=== PATIENT | female | born 1950 | race Caucasian/White ===

== ENCOUNTER 2019-11-29 10:44 | Outpatient (CLI) | payer MEDICARE, SELFPAY ==
[2019-11-29 12:05] LABS: CA 125 16.6 U/mL (0-35)
== END 2019-11-29 10:45 | disposition home or self-care (01) ==
LOC: ONCMED 10:44
PROVIDERS: Internal Medicine Medical Oncology; Visit Provider Internal Medicine Hematology & Oncology
DX: C56.9 Malignant neoplasm of unspecified ovary (principal)
CPT/HCPCS: 36591; 86304

== ENCOUNTER → 2020-09-02 09:11 | Day surgery (SDC) | payer MEDICARE, SELFPAY ==
[2020-09-02 09:33] VITALS: BP 187/63; PULSE 88; RESP 16; TEMP 36.4; O2SAT 95; BMI 35.7
--- NOTE | 2020-09-02 09:54 | PC.NURSE ---
0935 Implanted port to right chest flushed per protocol. Blood return noted. Flushed with 20 mL NS without difficulty. Pt tolerated well. Appointments for September through January made with cards given.
== END ==
PROVIDERS: PCP Nurse Practitioner Family; Visit Provider Nurse Practitioner Family
DX: Z45.2 Encounter for adjustment and management of vascular access device (principal)
CPT/HCPCS: 96368; 96523

== ENCOUNTER 2020-09-26 14:57 | Outpatient (CLI) | payer MEDICARE, SELFPAY ==
--- NOTE | 2020-09-26 | XR_ITS ---
WS: [id number] SCREENING DEXA SCAN Played CLINICAL INFORMATION: POST MENAPAUSAL COMPARISON: None. FINDINGS: The L1-L4 bone mineral density measures 1.086 g/cm2. This corresponds to a T score score of -0.8 and Z score of -0.3. Left femoral neck bone mineral density measures 0.832 g/cm2. This corresponds to a T score of -1.4 an d Z score of -0.8. Right femoral neck bone mineral density measures 0.859 g/cm2. This corresponds to a T score -1.2of an d Z score of -0.6. Mean femoral neck bone mineral density measures 0.846 g/cm2. This corresponds to a T score of -1.3 an d Z score of -0.7. XR/XR DEXA axial skeleton* 45180 IMPRESSION: Osteopenia in the femoral necks. Normal bone mineralization lumbar spine. Patient's FRAX calculated 10 year probability for major osteoporotic fracture i s 15.5 % and osteoporotic hip fracture is 2.4%.
--- NOTE | 2020-09-26 15:06 | MM_ITS ---
WS: [id number] BILATERAL SCREENING DIGITAL MAMMOGRAM WITH CAD HISTORY: SCREENING COMPARISON: None available. Bilateral CC and MLO views submitted. Computer aided detection analyzed. Breast composition: The breasts are heterogeneously dense, which may obscure small masses. No suspici ous masses, microcalcifications or architectural distortion. Scattered asymmetries. No architectural distortion or suspicious mass. MM/[place] [id number] IMPRESSION: BI-RADS: 2-Benign FOLLOW UP: 1 Year Follow-up
== END 2020-09-26 14:58 | disposition home or self-care (01) ==
PROVIDERS: PCP Nurse Practitioner Family; Visit Provider Nurse Practitioner Family
DX: Z12.31 Encounter for screening mammogram for malignant neoplasm of breast (principal); Z78.0 Asymptomatic menopausal state; M85.88 Other specified disorders of bone density and structure, other site
CPT/HCPCS: 77067; 77080

== ENCOUNTER → 2020-10-02 06:00 | Day surgery (SDC) | payer MEDICARE, SELFPAY ==
[2020-10-02 11:20] VITALS: BP 190/100; PULSE 90; RESP 18; TEMP 36.3; O2SAT 97
== END ==
PROVIDERS: PCP Nurse Practitioner Family; Visit Provider Nurse Practitioner Family
DX: Z45.2 Encounter for adjustment and management of vascular access device (principal)
CPT/HCPCS: 96368; 96523

== ENCOUNTER 2020-10-02 09:23 | Outpatient (CLI) | payer MEDICARE, SELFPAY ==
--- NOTE | 2020-10-02 09:28 | CT_ITS ---
WS: [id number] CT CHEST, ABDOMEN, AND PELVIS TECHNIQUE: Contrast-enhanced CT of the chest, abdomen, and pelvis with coronal and sagittal reformatt ed images. CLINICAL INFORMATION: HX OF OVARIAN CANCER COMPARISON: None. DLP: 2386.[address] scans at [facility] use at least one of these dose optimization techniques: automat ed exposure control; mA and/or kV adjustment per patient size (includes targeted exams where dose is matched to clinical indication); or iterative reconstruction. CT CHEST: Mild chronic emphysematous changes. No acute pulmonary infiltrates. No consolidation or pleural fluid . No suspicious pulmonary parenchymal opacities. No axillary lymphadenopathy. No mediastinal or hilar lymphadenopathy. Normal caliber thoracic aorta. CT ABDOMEN AND PELVIS: Mild diffuse fatty infiltration of the liver. Prior cholecystectomy. Normal po rtal vein and splenic vein. Small esophageal hiatal hernia. Normal spleen. Normal pancreas. Adrenal g lands are normal. No hydronephrosis in either kidney. Normal renal parenchymal enhancement. Normal ca liber abdominal aorta. Mild aortic calcification. 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 No evidence of acute diverticulitis. Shallow fat-containing supraumbilical he rnia with a small amount of protruding transverse colon. No obstruction. Prior hysterectomy. No abdom inal lymphadenopathy. No pelvic or inguinal lymphadenopathy. Compression of the T11 superior endplate. No retropulsion. CT/CT chest abd pel w con* IMPRESSION: 1. No evidence of metastatic disease in the chest abdomen or pelvis. 2. No adenopathy in the chest abdomen or pelvis. 3. Prior hysterectomy. 4. No pelvic or inguinal lymphadenopathy. 5. Prior cholecystectomy. Mild diffuse fatty infiltration liver. 6. Small esophageal hiatal hernia. 7. Shallow supraumbilical hernia with a small amount of herniated transverse c olon. No obstruction. 8. Mild chronic appearing compression superior endplate T11. 9. 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
[2020-10-02] MEDS: iohexol 300 mg/mL 50 mL Btl PO (10:01)
[2020-10-02 10:34] LABS: Blood Urea Nitrogen 19 mg/dL (8-23)
[2020-10-02] MEDS: iodixanol 320 mg/mL 100mL Btl IV (11:10)
== END 2020-10-02 09:24 | disposition home or self-care (01) ==
LOC: RAD 09:26
PROVIDERS: PCP Nurse Practitioner Family; Visit Provider Nurse Practitioner Family
DX: Z85.43 Personal history of malignant neoplasm of ovary (principal); D17.9 Benign lipomatous neoplasm, unspecified; K42.9 Umbilical hernia without obstruction or gangrene; K44.9 Diaphragmatic hernia without obstruction or gangrene; Z90.49 Acquired absence of other specified parts of digestive tract; K76.0 Fatty (change of) liver, not elsewhere classified; Z90.710 Acquired absence of both cervix and uterus
CPT/HCPCS: 36415; 71260; 74177; 82565; 84520

== ENCOUNTER → 2020-12-02 09:15 | Day surgery (SDC) | payer MEDICARE, SELFPAY ==
[2020-12-02 08:57] VITALS: BMI 36.7
[2020-12-02 09:30] VITALS: BP 157/65; PULSE 89; RESP 18; TEMP 36.5; O2SAT 95
== END ==
PROVIDERS: PCP Nurse Practitioner Family; Visit Provider Nurse Practitioner Family
DX: Z95.828 Presence of other vascular implants and grafts (principal)
CPT/HCPCS: 96368; 96523

== ENCOUNTER → 2020-12-31 09:23 | Day surgery (SDC) | payer MEDICARE, SELFPAY ==
[2020-12-31 09:44] VITALS: BP 169/90; PULSE 88; RESP 18; TEMP 36.4; O2SAT 95
[2020-12-31 09:49] VITALS: BMI 36.7
--- NOTE | 2020-12-31 10:02 | SUR.OPER ---
port accessed. good blood return. flushed with 20ml of sterile saline. needle dc ed. sterile dressing applied. patient tolerated well.
== END ==
PROVIDERS: PCP Nurse Practitioner Family; Visit Provider Nurse Practitioner Family
DX: Z45.2 Encounter for adjustment and management of vascular access device (principal)
CPT/HCPCS: 96368; 96523

== ENCOUNTER 2022-04-19 14:23 | Inpatient (IN) | payer MEDICARE, SELFPAY ==
[2022-04-19 14:28] VITALS: BP 170/56; PULSE 50; RESP 18; TEMP 36.8; O2SAT 96; BMI 35.9
--- NOTE | 2022-04-19 14:37 | ECG_ITS ---
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: : 1950 Requested By: David Mandel Order Number: [id number] Reading MD: Measurements Intervals [place] Rate: 48 P: CO: QRS: -66 QRSD: 106 T: 69 QT: 485 QTc: 435 Interpretive Statements SUPRAVENTRICULAR BRADYCARDIA LEFT AXIS DEVIATION [QRS AXIS < -30] ANTEROSEPTAL MYOCARDIAL INFARCTION , OF INDETERMINATE AGE [40+ ms Q WAVE IN V1-V4] INTERPRETATION BASED ON A DEFAULT AGE OF 40 YEARS No previous ECG available for comparison [id number] f
--- NOTE | 2022-04-19 14:49 | XRR_ITS ---
PROCEDURE INFORMATION: Exam: XR Chest Exam date and time: 04/19/2022 3:25 PM Age: 72 years old Clinical indication: Shortness of breath; Additional info: SOB TECHNIQUE: Imaging protocol: Radiologic exam of the chest. Views: 1 view. COMPARISON: CT chest abd pel w con* 10/02/2020 11:22 AM FINDINGS: Lungs: Low lung volumes seen. The lungs are otherwise clear. No consolidation. Pleural spaces: Unremarkable. No pleural effusion. No pneumothorax. Heart/Mediastinum: Unremarkable. No cardiomegaly. Bones/joints: Unremarkable. New lines are a right central line is present on the right side extending to the SVC XR/XR chest 1V portable [id number] IMPRESSION: 1. Right central line extends into the SVC 2. Low lung volumes seen. 3. The lungs are otherwise clear
--- NOTE | 2022-04-19 14:50 | ECG_ITS ---
[facility] Test Date: 2022-04-19 Pat Name: Angelic Fuentes Department: Room: 263 Gender: Female Agile Qa Tester: : 1950 Requested By: David Mandel Order Number: [id number] Crystal MD: Jazmin Richey M.D. Measurements Intervals [place] Rate: 49 P: VT: QRS: -46 QRSD: 110 T: 54 QT: 449 QTc: 406 Interpretive Statements SINUS RHYTHM WITH HIGH GRADE AV BLOCK LEFT AXIS DEVIATION [QRS AXIS < -30] POSSIBLE ANTERIOR MYOCARDIAL INFARCTION , PROBABLY OLD [30 ms Q WAVE IN V3/V4, OR R < 0.2 mV IN V4] CRITICAL TEST RESULT Compared to ECG 04/19/2022 14:36:10 Junctional rhythm no longer present Myocardial infarct finding still present Electronically Signed On 04-21-2022 0:05:32 CDT by Jazmin Richey M.D. [id number]
--- NOTE | 2022-04-19 14:51 | W.ED.URI ---
HPI - URI/Sore Throat General: Chief Complaint: Upper Respiratory Infection Stated Complaint: coughing, sob, chest pains Time Seen by Provider: 04/19/22 14:38 Source: patient Mode of arrival: ambulatory Limitations: no limitations History of Present Illness: This pleasant patient comes to the emergency department because of productive cough, shortness of breath, malaise. She states the symptoms of began early last week and predominantly were all upper airway congestion some mild nonproductive cough. She had a needle guided CT biopsy on last week for follow-up on her ovarian cancer and states that since that time her symptoms have worsened to include productive cough and some shortness of breath with normal activity. She denies any known fevers. She denies any history of cardiovascular disease or cardiopulmonary disease. She does have ovarian cancer and has had previous chemotherapy and is now still in a oncology care. Denies any history of thromboembolic disease. She is uncertain if she had Pneumovax but was under the care of [facility] in the [facility] and was always up-to-date on all immunizations. She has had primary COVID series and 2 boosters. She states she has no abdominal pain as result of her biopsy. She has been having normal urinary and bowel movements although her intake of solids has not been normal in the last day or so because of no appetite she has been drinking fluids well. MD elicited complaint: cough and nasal congestion Description of mucous: green Exacerbating factors: exertion Associated symptoms: Reports nasal congestion; Deny abdominal pain, chills, chest pain, fever(s), headache(s), nausea or vomiting Review of Systems Const: Reports: body aches and change in appetite; Denies: fever(s) or chills Eyes: Denies: change in vision ENMT: Reports: nasal congestion; Denies: throat pain or odynophagia Card: Denies: chest pain, palpitations, irregular heart rhythm, edema, syncope or pre-syncope Resp: Reports: productive cough; Denies: wheezing or stridor GI: Denies: abdominal pain, nausea or vomiting : Denies: flank pain, difficulty voiding, dysuria or urinary frequency Musc: Denies: neck pain, back pain, extremity pain or extremity swelling Skin/Breast: Denies: rash Neuro: Denies: headache(s), numbness in extremities or weakness in extremities Rambo/Lymph: Denies: easy bruising or easy bleeding Physical Exam Narrative: EXAM NARRATIVE: Makes good eye contact. She is comfortable and cooperative. Const: COMMON NORMALS: no acute distress and patient oriented x3 GENERAL APPEARANCE: cooperative and comfortable NUTRITIONAL APPEARANCE: overweight HENMT: COMMON NORMALS: normocephalic, Normal nasal mucous membranes and turbinates present, moist oral mucous membranes and oropharynx normal HEAD & SCALP: normocephalic NOSE: Normal nasal mucous membranes and turbinates present Eye: COMMON NORMALS: Equal, round and reactive pupils present, EOMs intact bilaterally, conjunctivae normal and no scleral icterus CONJUNCTIVA: Yes conjunctivae normal PUPIL: Yes Equal, round and reactive pupils present Neck/C-Spine: COMMON NORMALS: full ROM, no lymphadenopathy, no JVD and No carotid bruits Chest: COMMONS NORMALS: normal inspection of the chest Resp: COMMON NORMALS: No retractions and No use of accessory muscles EFFORT & INSPECTION: Yes able to speak in complete sentences AUSCULTATION: diminished lung sounds (Bases bilaterally) Cardio: COMMON NORMALS: no JVD, regular rate, regular rhythm, No murmurs present (Cardio) and Peripheral pulses 2+ throughout RATE: regular rate RHYTHM: regular rhythm PERIPHERAL PULSES: Peripheral pulses 2+ throughout GI: COMMON NORMALS: Normal to inspection, nondistended, normoactive bowel sounds present, Soft to palpation, non-tender and no masses PALPATION: Yes Soft to palpation : COMMON NORMALS: Yes no CVA tenderness BLADDER/KIDNEY EXAM: Yes no CVA tenderness Back/Pelvis: COMMON NORMALS: no CVA tenderness, thoracic and lumbar spine normal to inspection, no thoracic nor lumbar tenderness and thoraco-lumbar ROM normal Extremity: COMMON NORMALS: normal to inspection, full ROM, capillary refill normal, no calf tenderness and no pedal edema Neuro: COMMON NORMALS: patient oriented x3, moves all extremities, no focal motor deficits and no sensory deficits noted Psych: COMMON NORMALS: mental status grossly normal Skin: COMMON NORMALS: no rashes or lesions noted, turgor normal and no jaundice GENERAL SKIN EXAM: no rashes or lesions noted and turgor normal Course Reevaluation(s): Reevaluation #1: Limited bedside ultrasound of her myocardium was performed. No evidence of pericardial effusion. Normal myocardial function grossly intact with right ventricular enlargement. Time: 15:07 Reevaluation #2: I informed patient of current findings. Will consult with hospitalist. Time: 17:26 Consultations: Consultation #1: Discussed with Dr. Fleming who agrees to place the patient in observation and initiate treatment. Time: 17:26 Vital Signs: Vital signs: Vital Signs Temperature 98.2 F 04/19/22 14:28 Pulse Rate 43 L 04/19/22 17:01 Respiratory Rate 16 04/19/22 17:01 Blood Pressure 165/62 04/19/22 17:01 Pulse Oximetry 95 04/19/22 17:01 Oxygen Delivery Me thod 04/19/22 17:01 MDM - URI/Sore Throat Medical Decision Making This lady presents to our emergency department with a history of ovarian cancer ongoing treatment. She states over the past number of days she thought she had some upper respiratory symptoms which progressed into more congestion and feeling winded much more than usual. No ongoing chest pain or fevers. No history of heart failure etc. Her work-up today did not reveal her to be hypoxic or tachycardic or hypotensive however she did have right-sided pulmonary emboli by CTA. She did have an elevation in her D-dimer, her BNP as well as her initial troponin without any acute ischemic changes on EKG. She is being started on an direct acting anticoagulants and admitted for echo and to follow her troponins to ensure that she does not decompensate. Lab Data I reviewed the patient's lab results. : 04/19/22 15:10 04/19/22 15:10 Radiology Impressions Chest X-Ray 04/19/22 14:49 IMPRESSION: 1. Right central line extends into the SVC 2. Low lung volumes seen. 3. The lungs are otherwise clear Chest CTA 04/19/22 16:02 IMPRESSION: 1. Large pulmonary embolism right lower lobe pulmonary artery . 2. Negative for right heart strain. 3. Scattered interstitial densities in both lungs as described 4. Unremarkable thoracic aorta 5. Pleural thickening posterior aspect of the bilateral lower lobes. Laboratory Results WBC 6.0 10^3/uL (4.0-10.0) 04/19/22 15:10 RBC 2.97 10^6/uL (4.1-5.3) L 04/19/22 15:10 Hgb 11.1 g/dL (11.5-15.3) L 04/19/22 15:10 Hct 32.4 % (37.0-47.0) L 04/19/22 15:10 MCV 109.1 fl (81-99) H 04/19/22 15:10 MCH 37.4 pg (28.0-34.0) H 04/19/22 15:10 MCHC 34.3 g/dL (30.0-36.0) 04/19/22 15:10 RDW 16.5 % (12.1-15.1) H 04/19/22 15:10 Plt Count 188 10^3/cmm (130-400) 04/19/22 15:10 MPV 12.8 fL (7.4-10.4) H 04/19/22 15:10 Neut % (Auto) 77.9 % 04/19/22 15:10 Lymph % (Auto) 12.9 % 04/19/22 15:10 [place] % (Auto) 6.3 % 04/19/22 15:10 Eos % (Auto) 1.7 % 04/19/22 15:10 Baso % (Auto) 0.7 % 04/19/22 15:10 Neut # (Auto) 4.67 10^3/uL (1.8-7.7) 04/19/22 15:10 Lymph # (Auto) 0.8 10^3/uL (0.8-4.8) 04/19/22 15:10 [place] # (Auto) 0.4 10^3/uL (0.2-0.9) 04/19/22 15:10 Eos # (Auto) 0.1 10^3/uL (0.0-0.8) 04/19/22 15:10 Baso # (Auto) 0.0 10^3/uL (0.0-0.1) 04/19/22 15:10 Nucleated RBC % (auto) 0.3 % 04/19/22 15:10 Nucleated RBCs # 0.0 /100WBC 04/19/22 15:10 D-Dimer 2.32 ug/mIFEU (0-0.59) H 04/19/22 15:10 Sodium 139 mmol/L (136-145) 04/19/22 15:10 Potassium 4.1 mmol/L (3.5-5.1) 04/19/22 15:10 Chloride 104 mmol/L (98-107) 04/19/22 15:10 Carbon Dioxide 21 mmol/L (22-29) L 04/19/22 15:10 Anion Gap 18.1 (5-19) 04/19/22 15:10 BUN 26 mg/dL (8-23) H 04/19/22 15:10 Creatinine 1.3 mg/dL (0.5-0.9) H 04/19/22 15:10 GFR Calculation Not Reportable 04/19/22 15:10 Glucose 152 mg/dL (65-115) H 04/19/22 15:10 Calculated Osmolality 296 mOsm/kg (285-295) H 04/19/22 15:10 Calcium 8.5 mg/dL (8.5-10.5) 04/19/22 15:10 Total Bilirubin 1.5 mg/dL (0.15-1.2) H 04/19/22 15:10 AST 15 U/L (0-32) 04/19/22 15:10 ALT 11 U/L (0-33) 04/19/22 15:10 Alkaline Phosphatase 101 U/L (35-105) 04/19/22 15:10 Troponin T Baseline 43 ng/L (0-10) H 04/19/22 15:10 NT-Pro-B Natriuret Pep 5819 pg/mL (0-125) H 04/19/22 15:10 Total Protein 6.2 g/dL (6.6-8.7) L 04/19/22 15:10 Albumin 3.6 g/dL (3.5-5.2) 04/19/22 15:10 Globulin 2.6 g/dL (1.3-4.6) 04/19/22 15:10 SARS-CoV-2 Ag (Rapid) Negative (Negative) 04/19/22 15:10 EKG Data EKG 1: I personally reviewed and interpreted this EKG as follows: Interpretation: Resting EKG reveals ventricular rate of 48 bpm. SC interval is indeterminate at this tracing. QTc QRS duration are normal. She has a leftward axis consistent with possible left anterior Heema block. She has decreased R waves noted anteriorly suggestive of possible prior anterior wall MN. Discharge Plan Discharge Patient Disposition: Placed in Observation Clinical Impression: Pulmonary embolism on right, Ovarian cancer Condition: Stable Prescriptions: No Action atorvastatin 40 mg tablet 40 mg PO DAILY lisinopril 20 mg tablet 20 mg PO DAILY amlodipine 2.5 mg tablet 2.5 mg PO DAILY bupropion HCl [Wellbutrin] 100 mg Tablet 100 mg PO DAILY letrozole 2.5 mg tablet 2.5 mg PO DAILY escitalopram oxalate 10 mg Tablet 10 mg PO DAILY alendronate 70 mg tablet 70 mg PO DIRECTED Rx Instructions: weekly on Fridays Referrals: Zahida Umanzor FNP [Primary Care Provider] - Coding Level of Care Code ED Sewer System Supervisor for Chg Fwd Exam Comprehensive
[2022-04-19 15:22] LABS: Basophils % 0.7 %; Eosinophils # 0.1 10^3/uL (0.0-0.8); Eosinophils % 1.7 %; Hematocrit 32.4 % (37.0-47.0); Hemoglobin 11.1 g/dL (11.5-15.3); Lymphocytes # 0.8 10^3/uL (0.8-4.8); Lymphocytes % 12.9 %; Mean Corpuscular HGB Conc 34.3 g/dL (30.0-36.0); Mean Corpuscular Hemoglobin 37.4 pg (28.0-34.0); Mean Corpuscular Volume 109.1 fl (81-99); Mean Platelet Volume 12.8 fL (7.4-10.4); Monocytes # 0.4 10^3/uL (0.2-0.9); Monocytes % 6.3 %; Neutrophils # 4.67 10^3/uL (1.8-7.7); Neutrophils % 77.9 %; Nucleated Red Blood Cells % 0.3 %; Platelet Count 188 10^3/cmm (130-400); Red Blood Count 2.97 10^6/uL (4.1-5.3); Red Cell Distribution Width 16.5 % (12.1-15.1)
[2022-04-19 15:40] LABS: Troponin(5th) Baseline 43 ng/L (0-10)
[2022-04-19 15:46] LABS: SARS Covid-2 Antigen Negative (Negative)
[2022-04-19 15:50] LABS: Alanine Aminotransferase 11 U/L (0-33); Albumin Level 3.6 g/dL (3.5-5.2); Alkaline Phosphatase 101 U/L (35-105); Aspartate Amino Transferase 15 U/L (0-32); Blood Urea Nitrogen 26 mg/dL (8-23); Calcium 8.5 mg/dL (8.5-10.5); Carbon Dioxide 21 mmol/L (22-29); Chloride 104 mmol/L (98-107); Globulin 2.6 g/dL (1.3-4.6); Glucose 152 mg/dL (65-115); NT Pro B Type Natriuretic Pept 5819 pg/mL (0-125); Osmolality Calculated 296 mOsm/kg (285-295); Sodium 139 mmol/L (136-145); Total Bilirubin 1.5 mg/dL (0.15-1.2); Total Protein 6.2 g/dL (6.6-8.7)
[2022-04-19 15:53] LABS: Anion Gap 18.1 (5-19); Potassium 4.1 mmol/L (3.5-5.1)
[2022-04-19 15:58] LABS: D Dimer 2.32 ug/mIFEU (0-0.59)
--- NOTE | 2022-04-19 16:02 | CTR_ITS ---
PROCEDURE INFORMATION: Exam: CTA Chest With Contrast Exam date and time: 04/19/2022 4:24 PM Age: 72 years old Clinical indication: Shortness of breath; Prior surgery; Surgery type: Port; Additional info: Elevated dimer, SOB TECHNIQUE: Imaging protocol: Computed tomographic angiography of the chest with contrast. 3D rendering (Not supervised by radiologist): MIP and/or 3D reconstructed images were created by the technologist. Radiation optimization: All CT scans at this facility use at least one of these dose optimization techniques: automated exposure control; mA and/or kV adjustment per patient size (includes targeted exams where dose is matched to clinical indication); or iterative reconstruction. Contrast material: OMNI 350; Contrast volume: 95 ml; Contrast route: INTRAVENOUS (IV); COMPARISON: CT chest abd pel w con* 10/02/2020 11:22 AM RADIATION DOSE METRICS: Total DLP (mGy-cm): 440.34 FINDINGS: Pulmonary arteries: There are several large filling defects present throughout the right lower lobe pulmonary arteries. These findings correspond to a positive diagnosis of pulmonary embolism. The pulmonary embolism involves the main right pulmonary artery and the proximal and distal segmental and subsegmental right lower lobe pulmonary arteries. There is also filling defects in the proximal aspect of the right middle lobe pulmonary artery The remainder of the pulmonary arterial system does not show focal abnormality. No additional pulmonary artery filling defects are noted.. Scattered interstitial densities are seen throughout the left lung and in the posterior aspect of the right upper lobe.These findings were not present on prior examination Aorta: Unremarkable. No aortic aneurysm. No aortic dissection. Lungs: Unremarkable. No consolidation. No masses. Pleural spaces: Pleural thickening is seen in the posterior bilateral lower lobe. No pneumothorax. No pleural effusion. Heart: Negative for right heart strain negative for coronary artery calcifications. . No cardiomegaly. No pericardial effusion. Lymph nodes: Unremarkable. No enlarged lymph nodes. Bones/joints: Unremarkable. No acute fracture. Soft tissues: Unremarkable. CT/CT angio chest PE protcl [id number] IMPRESSION: 1. Large pulmonary embolism right lower lobe pulmonary artery . 2. Negative for right heart strain. 3. Scattered interstitial densities in both lungs as described 4. Unremarkable thoracic aorta 5. Pleural thickening posterior aspect of the bilateral lower lobes.
[2022-04-19] MEDS: iohexol 350 mg/mL 100 mL Btl IV (16:36)
[2022-04-19 17:01] VITALS: BP 165/62; PULSE 43; RESP 16; O2SAT 95
[2022-04-19] MEDS: rivaroxaban 10 mg Tablet 15 MG PO (17:49)
[2022-04-19 17:50] VITALS: BP 185/74; PULSE 45; RESP 16; O2SAT 96
--- NOTE | 2022-04-19 17:56 | PC.NURSE ---
Report called to MARCOS Pittman
--- NOTE | 2022-04-19 19:30 | USR_ITS ---
PROCEDURE INFORMATION: Exam: US Duplex Lower Extremity Veins, Bilateral Exam date and time: 04/19/2022 8:50 PM Age: 72 years old Clinical indication: Condition or disease; Other: Pe RT lung; Patient HX: PT has had ovarian cancer. CT shows pe. ; Additional info: Dvt TECHNIQUE: Imaging protocol: Real-time Duplex ultrasound of the bilateral extremities with 2-D yi scale, color Doppler flow and spectral waveform analysis with image documentation. Complete exam focused on the bilateral lower extremity veins. COMPARISON: CT chest abd pel w con* 10/02/2020 11:22 AM FINDINGS: Right deep veins: The common femoral, femoral, proximal profunda femoral and popliteal veins are patent without thrombus. Normal Doppler waveforms. Normal compressibility and/or augmentation response. Right superficial veins: Occlusive thrombus seen within the small saphenous vein which extends into the peroneal trunk. Left deep veins: Unremarkable. The common femoral, femoral, proximal profunda femoral and popliteal veins are patent without thrombus. Normal Doppler waveforms. Normal compressibility and/or augmentation response. Left superficial veins: Saphenofemoral junction is patent without thrombus. Soft tissues: Unremarkable. US/[place] [id number] IMPRESSION: 1. Occlusive thrombus within the superficial right small saphenous vein which extends into the peroneal trunk within the calf. 2. No DVT in the left leg.
--- NOTE | 2022-04-19 19:30 | USCV_ITS ---
Angelic Fuentes Age: 72 Gender: F : 1950 Exam Date: 04/19/2022 21:15 Ordering Phys: Gómez Pean MD Technologist: Sonia Arciniega [place] [facility] [place] PE with swollen feet BP: 167 / 67 HR: 48 Rhythm: Sinus Technical Quality: Adequate MEASUREMENTS (Male / Female) Normal Values 2D ECHO LV Diastolic Diameter PLAX 4.5 cm 4.2 - 5.9 / 3.9 - 5.3 cm LV Systolic Diameter PLAX 3.0 cm LV Chamber Size 5.1 cm IVS Diastolic Thickness 1.2 cm 0.6 - 1.0 / 0.6 - 0.9 cm IVS Systolic Thickness 1.6 cm LVPW Diastolic Thickness 1.4 cm 0.6 - 1.0 / 0.6 - 0.9 cm LVPW Systolic Thickness 1.8 cm RV Chamber Size 3.6 cm LVOT Diameter 2.1 cm LV Ejection Fraction 2D Teich 62.0 % LV Ejection Fraction MOD 2C 81.1 % LV Ejection Fraction 2C AL 80.8 % LA Diameter 4.4 cm LA Width 3.3 cm LA Height 4.3 cm RA Width 3.7 cm RA Height 4.6 cm Aorta at Sinotubular Diameter 3.1 cm IVC Diameter 1.3 cm M-MODE Aortic Annulus Diameter 4.2 cm LA Ao Ratio MM 1.3 MV E Point Septal Separation 0.5 cm DOPPLER AV Peak Velocity 262.0 cm/s LVOT Peak Velocity 169.0 cm/s AV Area Cont Eq vti 2.5 cm squared AV Area Cont Eq pk 2.2 cm squared MV Area PHT 6.9 cm squared Mitral E to A Ratio 1.9 MV E' Velocity 120.5 cm/s Mitral E to MV E' Ratio 14.4 Mitral E to LV E' Lateral Ratio 13.4 Mitral E to LV E' Septal Ratio 15.7 TR Peak Velocity 236.8 cm/s TR Peak Gradient 22.4 mmHg TR Mean Velocity 163.7 cm/s TR Mean Gradient 12.4 mmHg TR Velocity Time Integral 62.5 cm TV Peak E Velocity 56.0 cm/s Right Atrial Pressure 3.0 mmHg Pulmonary Artery Systolic Pressu 25.4 mmHg RV Acceleration Time 0.4 s RV Ejection Time 0.2 s RV AcT/ET 2.0 FINDINGS Left Ventricle Normal left ventricular size and systolic function, EF 72 %. No regional wall motion abnormalities. Right Ventricle Normal right ventricular size and systolic function. Right Atrium Mildly increased right atrial size. Left Atrium Mildly increased left atrial size. Mitral Valve Thickened mitral valve. Mild mitral annular calcification. Aortic Valve Moderately severe aortic regurgitation Tricuspid Valve Trace tricuspid valve regurgitation. Pulmonic Valve Mild pulmonary valve regurgitation. Pericardium No pericardial effusion. Aorta Normal aortic annulus size. IVC Normal inferior vena cava. CONCLUSIONS Normal left ventricular size and systolic function, EF 72 %. No regional wall motion abnormalities. Mild biatrial enlargement Moderately severe aortic regurgitation. Thickened mitral valve. Mild mitral annular calcification. Mild pulmonary valve regurgitation. Trace tricuspid valve regurgitation. Estimated pulmonary artery peak systolic pressure was 25 mmHg. This could be an underestimation because of the poor Doppler signals There is no pericardial effusion. No similar previous studies are available for comparison Dr Jazmin Richey MD FAC (Electronically Signed) Final Date: 20 April 2022 08:38 S
--- NOTE | 2022-04-19 19:34 | P.HP_ITS ---
Providers/Chief Complaint Admitting Physician: Tha Buckley MD Primary Care Provider: CINDI Dejesus Chief Complaint: coughing, sob, chest pains History of Present Illness Angelic Fuentes is a 72 year old female with a past medical history of ovarian cancer, history of bilateral salpingo-oophorectomy and hysterectomy, status postchemotherapy, now with reoccurrence, had a biopsy of reoccurrence?, Patient is exactly unsure what was biopsied, but she is managed by oncology in [facility], currently on Lynparza, who presents [facility] due to acutely worsening shortness of breath. Patient tells me for the last few weeks, she has had expected increased shortness of breath, increase shortness of breath and progressing to exertion, no shortness of breath at rest. No fevers, no cough, no chest pain, no palpitations. In the emergency room she was found to have a large pulm embolism in the right lower lobe, negative for right heart strain, she is has been given Xarelto, not requiring any oxygen, as there was concerns for elevated BNP and troponin hospitalist team was called for admission for monitoring. Currently blood pressure 185/74, pulse 45, sinus bradycardia, respiratory 16, temperature 90.2, 96% on room air, alert oriented x3 Review of Systems Const: Denies: fever(s) Card: Denies: chest pain Resp: Reports: dyspnea GI: Denies: abdominal pain Medications/Allergies Home Medications Medication Instructions Recorded Confirmed Last Taken Type atorvastatin 40 mg tablet 40 mg PO DAILY 09/02/20 04/19/22 04/18/22 History bupropion HCl 100 mg tablet 100 mg PO DAILY 09/02/20 04/19/22 04/18/22 History escitalopram oxalate 10 mg tablet 10 mg PO DAILY 09/02/20 04/19/22 04/18/22 History alendronate 70 mg tablet 70 mg PO Q7D 12/02/20 04/19/22 12/27/20 History lorazepam 0.5 mg tablet (Ativan) 0.5 mg PO BID PRN Anxiety 04/19/22 04/19/22 Unknown History olaparib 150 mg tablet (Lynparza) 300 mg PO BID 04/19/22 04/19/22 04/18/22 History Allergies Allergy/AdvReac Type Severity Reaction Status Date / Time No Known Allergies Allergy Verified 12/02/20 08:58 PFSH Acute PFSH: Medical History (Updated 04/19/22 @ 19:38 by Gómez Pena MD) High cholesterol Hypertension Ovarian cancer Surgical History (Updated 04/19/22 @ 19:37 by Gómez Pena MD) H/O abdominal hysterectomy Hx of cholecystectomy Family History (Updated 04/19/22 @ 19:38 by Gómez Pena MD) Mother CAD (coronary artery disease) Father CAD (coronary artery disease) Social History (Updated 04/19/22 @ 19:38 by Gómez Pena MD) Smoking and tobacco status: never smoked Alcohol intake: never Substance/Drug Use: never Vitals/I&O/Wt Last Vital Signs Temp 98.2 F 04/19/22 14:28 Pulse 45 L 04/19/22 17:50 Resp 16 04/19/22 17:50 BP 185/74 04/19/22 17:50 Pulse Ox 96 04/19/22 17:50 O2 Del Method 04/19/22 18:32 Weight last 48 hrs Weight 113.398 kg Physical Exam Const: COMMON NORMALS: no acute distress and patient oriented x3 HENMT: COMMON NORMALS: normocephalic HEAD & SCALP: normocephalic Neck/C-Spine: COMMON NORMALS: no JVD Resp: COMMON NORMALS: normal respiratory effort, No retractions, No use of accessory muscles and clear to auscultation bilaterally AUSCULTATION: clear to auscultation bilaterally Cardio: COMMON NORMALS: no JVD, regular rate, regular rhythm, S1 normal heart sound present and S2 normal heart sound present RATE: regular rate RHYTHM: regular rhythm HEART SOUNDS: S1 normal heart sound present and S2 normal heart sound present GI: COMMON NORMALS: Normal to inspection, nondistended, normoactive bowel sounds present, Soft to palpation and non-tender PALPATION: Yes Soft to palpation Extremity: COMMON NORMALS: capillary refill normal, no clubbing, cyanosis or edema, no calf tenderness and no pedal edema Neuro: COMMON NORMALS: patient oriented x3, CN's II-XII intact bilaterally, moves all extremities and no focal motor deficits Psych: COMMON NORMALS: mental status grossly normal Data : 04/19/22 15:10 04/19/22 15:10 A&P Assessment and plan (1) Pulmonary embolism on right: (2) NSTEMI (non-ST elevated myocardial infarction): Plan Pulmonary embolism on the right -Continue Xarelto 15 mg twice daily -Monitor hemoglobin closely, monitor for bloody black stools -Monitor respiratory status closely -Likely discharge tomorrow -Full code -Xarelto for DVT prophylaxis NSTEMI -Likely secondary to pulm embolism -Serial EKGs troponins telemetry monitoring, cardiac echo History of recurrent ovarian cancer follows up with oncology in [facility] Medical Necessity Statement*: Patient requires hospitalization, outpatient observation, for pulmonary embolism, NSTEMI, outpatient observation Coding Level of Care Code Acute Reconciler for Zara Carbajal Diagnoses Pulmonary embolism on right I26.99 NSTEMI (non-ST elevated myocardial infarction) I21.4
[2022-04-19 20:00] VITALS: BP 167/69; PULSE 44; RESP 18; TEMP 36.8; O2SAT 95
[2022-04-19] MEDS: acetaminophen 325 mg Tablet 650 MG PO (20:13)
[2022-04-19 20:28] VITALS: O2SAT 95
[2022-04-19 20:32] LABS: Thyroid Stimulating Hormone 1.89 uIU/mL (0.27-4.20)
[2022-04-19 20:46] VITALS: BMI 35.9
[2022-04-19 22:00] VITALS: PULSE 48
--- NOTE | 2022-04-19 22:12 | PC.NURSE ---
CARDIAC RHYTHM On quality assurance monitor body pt was noted to be in ?? 3rd degree or CHB. HR 49. Asymptomatic. EKG from ER did showythm CHB. Dr Pena was notified of rhythm and EKG done. came up to look at strips & EKG and did discuss with Dr Richey. Sanaz pt transferred to CSU and orders for prn Atropine being written. Also sanaz pacer pads on pt for precaution. This was relayed to CSU nurse.
--- NOTE | 2022-04-19 22:16 | ECG_ITS ---
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 Measurements Intervals [place] Rate: 49 P: 67 IN: 134 QRS: -41 QRSD: 110 T: 54 QT: 454 QTc: 410 Interpretive Statements Sinus rhythm with third-degree AV block Possibly junctional escape rhythm LEFT AXIS DEVIATION [QRS AXIS < -30] POSSIBLE ANTERIOR MYOCARDIAL INFARCTION , PROBABLY OLD [30 ms Q WAVE IN V3/V4, OR R < 0.2 mV IN V4] Compared to ECG 04/19/2022 21:59:00 Sinus rhythm no longer present Myocardial infarct finding still present Electronically Signed On 04-21-2022 0:06:18 CDT by Jazmin Richey M.D. [email or web address] [email or web address].[email or web address]/store/[id number]
--- NOTE | 2022-04-19 22:17 | PC.NURSE ---
TRANSFER Pt transferred to room 275
[2022-04-19 23:01] LABS: Troponin(5th) Baseline 47 ng/L (0-10)
[2022-04-20] VITALS (11 sets, daily range): BP systolic 157–189; BP diastolic 49–77; PULSE 44–55; RESP 16–24; TEMP 36.5–36.8; O2SAT 92–95
--- NOTE | 2022-04-20 00:04 | ECG_ITS ---
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 Measurements Intervals [place] Rate: 47 P: [place]: QRS: -52 QRSD: 117 T: 53 QT: 499 QTc: 442 Interpretive Statements High degree AV block with a junctional escape rhythm, rate of 47 bpm LEFT AXIS DEVIATION [QRS AXIS < -30] MODERATE INTRAVENTRICULAR CONDUCTION DELAY [105+ ms QRS DURATION, 80+ ms Q/S IN V1/V2, NO Q AND 60+ ms R IN I/aVL/V5/V6] Compared to ECG 04/19/2022 22:00:15 Intraventricular conduction delay now present Sinus bradycardia no longer present Myocardial infarct finding no longer present Electronically Signed On 04-21-2022 0:19:58 CDT by Jazmin Richey M.D. [id number]
[2022-04-20 01:47] LABS: Troponin 5 2HR 51.18 ng/L (0-10)
[2022-04-20 01:58] LABS: Troponin 5 2HR Delta 4.18 ABS# (0-10)
[2022-04-20 04:27] LABS: Basophils # 0.1 10^3/uL (0.0-0.1); Basophils % 0.9 %; Eosinophils # 0.1 10^3/uL (0.0-0.8); Eosinophils % 2.4 %; Hematocrit 29.3 % (37.0-47.0); Hemoglobin 10.3 g/dL (11.5-15.3); Lymphocytes # 1.3 10^3/uL (0.8-4.8); Mean Corpuscular HGB Conc 35.2 g/dL (30.0-36.0); Mean Corpuscular Hemoglobin 37.9 pg (28.0-34.0); Mean Corpuscular Volume 107.7 fl (81-99); Mean Platelet Volume 12.8 fL (7.4-10.4); Monocytes # 0.5 10^3/uL (0.2-0.9); Monocytes % 8.6 %; Neutrophils # 3.76 10^3/uL (1.8-7.7); Neutrophils % 64.6 %; Nucleated Red Blood Cells % 0 %; Platelet Count 122 10^3/cmm (130-400); Red Blood Count 2.72 10^6/uL (4.1-5.3); Red Cell Distribution Width 16.5 % (12.1-15.1); White Blood Count 5.8 10^3/uL (4.0-10.0)
--- NOTE | 2022-04-20 04:56 | ECG_ITS ---
[facility] Test Date: 2022-04-20 Pat Name: Angelic Fuentes Department: Room: 275 Gender: Female Outpatient Surgery Rn: SANG: 1950 Requested By: Gómez Pena Order Number: [id number] Crystal MD: Jazmin Richey M.D. Measurements Intervals [place] Rate: 47 P: 55 WV: 261 QRS: -56 QRSD: 123 T: 58 QT: 557 QTc: 497 Interpretive Statements SINUS BRADYCARDIA WITH FIRST DEGREE AV BLOCK WITH OCCASIONAL VENTRICULAR PREMATURE COMPLEXES LEFT AXIS DEVIATION [QRS AXIS < -30] POSSIBLE ANTERIOR MYOCARDIAL INFARCTION , PROBABLY OLD [30 ms Q WAVE IN V3/V4, OR R < 0.2 mV IN V4] PROLONGED QT INTERVAL CRITICAL TEST RESULT Compared to ECG 04/20/2022 00:04:02 Ventricular premature complex(es) now present First degree AV block now present Myocardial infarct finding now present Prolonged QT interval now present Intraventricular conduction delay no longer present Electronically Signed On 04-21-2022 0:20:22 CDT by Jazmin Richey M.D. [email or web address].Te[employer]/store/[id number]
[2022-04-20 05:51] LABS: Anion Gap 17.5 (5-19); Blood Urea Nitrogen 27 mg/dL (8-23); Calcium 8.8 mg/dL (8.5-10.5); Carbon Dioxide 20 mmol/L (22-29); Chloride 105 mmol/L (98-107); Glucose 121 mg/dL (65-115); Magnesium 1.9 mg/dL (1.7-2.3); Osmolality Calculated 294 mOsm/kg (285-295); Potassium 3.5 mmol/L (3.5-5.1); Sodium 139 mmol/L (136-145)
[2022-04-20 05:52] LABS: Troponin 5 6HR 48.87 ng/L (0-10)
[2022-04-20 05:54] LABS: Troponin 5 6HR Delta 1.87 ng/L (0-12)
[2022-04-20] MEDS: rivaroxaban 10 mg Tablet 15 MG PO (05:56)
--- NOTE | 2022-04-20 09:06 | PM.CONSULT ---
Providers/Reason For Consult Consulting Physician/Specialty*: My name/cardiology Reason for Consult*: Patient with a high degree AV block on EKG Requesting Physician: Dr. Pena/Dr. Mann Attending Physician: Ericka Mann MD Primary Care Provider: CINDI Dejesus History of Present Illness History of Present Illness Angelic Fuentes is a 72 year old female with a history of hypertension and dyslipidemia, is admitted to the hospital through the emergency room where she presented with progressive shortness of breath. This patient apparently was diagnosed with ovarian cancer recently and is undergoing chemotherapy. 5 days ago, she started getting short of breath with activities. Even with minimal movements, she was getting extremely short of breath. She was found to have DVT in the right lower extremity. She also was found to have pulmonary embolism. On the EKG, she was found to have high degree AV block. Cardiology consult is requested for further cardiac evaluation recommendations. This patient has no previous history for any cardiac illness. No history for cardiac arrhythmia. This patient was on antihypertensive medications in the past. Lately her blood pressure was running low and for that reason, she was taken off the medication. But since she started getting short of breath, her blood pressure seems to be going high. She had some amount of shortness of breath after starting the chemotherapy. However for the last 5 days, it is acutely getting worse. She has no fever or chills. She been having some cough and runny nose for the last few days. She has no history for coronary artery disease, myocardial infarction or congestive heart failure. The telemetry shows episodes of sinus bradycardia and third-degree heart blocks/A-V dissociation. Review of Systems Narrative: CONSTITUTIONAL: No fever or chills. EYES: No blurring of vision or other visual disturbances lately. ENT: No hoarseness of voice, auditory disturbances or sore throat. CARDIOVASCULAR: As mentioned above. RESPIRATORY: As mentioned above GASTROINTESTINAL: No hematemesis or melena. GENITOURINARY recently diagnosed ovarian cancer of stage III INTEGUMENTARY: No skin rashes or history of skin cancer. NEURO: No transient ischemic attacks or amaurosis. PSYCHIATRIC: No history of psychosis or major depression. HEMATOLOGIC: No bleeding disorders or significant anemia. ENDOCRINE: No history of polyuria or polydipsia. MUSCULOSKELETAL: No recent joint pain or swelling. ALLERGY/IMMUNOLOGY: As mentioned above. Medications/Allergies Home Medications Medication Instructions Recorded Confirmed Last Taken Type atorvastatin 40 mg tablet 40 mg PO DAILY 09/02/20 04/19/22 04/18/22 History bupropion HCl 100 mg tablet 200 mg PO DAILY 09/02/20 04/19/22 04/18/22 History escitalopram oxalate 10 mg tablet 20 mg PO DAILY 09/02/20 04/19/22 04/18/22 History alendronate 70 mg tablet 70 mg PO Q7D 12/02/20 04/19/22 12/27/20 History acetaminophen 325 mg tablet 325 mg PO Q4-5H PRN Pain, Mild 04/19/22 04/19/22 Unknown History amlodipine 2.5 mg tablet 2.5 mg PO DAILY 04/19/22 04/19/22 04/18/22 History gabapentin 300 mg capsule 300 mg PO TID 04/19/22 04/19/22 04/18/22 History ibuprofen 600 mg tablet 600 mg PO Q6H PRN Pain or Fever 04/19/22 04/19/22 Unknown History lisinopril 20 mg tablet 20 mg PO DAILY 04/19/22 04/19/22 04/18/22 History loratadine 10 mg tablet (Claritin) 10 mg PO DAILY 04/19/22 04/19/22 04/18/22 History lorazepam 0.5 mg tablet (Ativan) 0.5 mg PO Q6H PRN Anxiety 04/19/22 04/19/22 Unknown History magnesium 0 tab PO DAILY 04/19/22 04/19/22 04/18/22 History olaparib 150 mg tablet (Lynparza) 300 mg PO BID 04/19/22 04/19/22 04/18/22 History ondansetron HCl 8 mg tablet 8 mg PO Q8H PRN Nausea 04/19/22 04/19/22 Unknown History scopolamine base 1 mg over 3 days 1 patch transdermal Q3D PRN Nausea 04/19/22 04/19/22 Unknown History transdermal patch vitamin E 400 unit capsule 400 unit PO DAILY 04/19/22 04/19/22 04/18/22 History Allergies Allergy/AdvReac Type Severity Reaction Status Date / Time No Known Allergies Allergy Verified 12/02/20 08:58 Current Medications Generic Name Dose Route Start Last Admin Trade Name Freq PRN Reason Stop Dose Admin Acetaminophen 650 mg 04/19/22 19:30 04/19/22 20:13 Acetaminophen 325 Mg Tablet PO 650 mg Q6H PRN Administration Mild/Mod Pain Or Temp >/= 101 Non-Formulary Medication 300 mg 04/19/22 21:00 04/19/22 20:16 Lynparza PO 300 mg BID ASHLEE Administration Rivaroxaban 15 mg 04/20/22 05:30 04/20/22 05:56 Rivaroxaban 10 Mg Tablet PO 15 mg Q12H ASHLEE Administration PFSH Acute PFSH: Medical History High cholesterol Hypertension Ovarian cancer Surgical History H/O abdominal hysterectomy Hx of cholecystectomy Family History Mother CAD (coronary artery disease) Father CAD (coronary artery disease) Social History Smoking and tobacco status: never smoked Alcohol intake: never Substance/Drug Use: never Vitals/I&O/Wt Last Vital Signs Temp 98.3 F 04/20/22 07:48 Pulse 52 L 04/20/22 07:48 Resp 20 H 04/20/22 07:48 BP 189/56 04/20/22 07:48 Pulse Ox 92 04/20/22 07:48 O2 Del Method 04/20/22 07:48 04/19/22 04/20/22 04/20/22 22:59 06:59 14:59 Intake Total 200 / 200 120 / 320 Balance 200 / 200 120 / 320 Weight last 48 hrs Weight 250 lb Weight 250 lb Physical Exam Narrative: GENERAL: The patient is alert and oriented times three. Not in any acute distress. Morbidly obese HEENT: No significant pallor, icterus or lymphadenopathy.Oral cavity: There are no mucous membrane lesions. NECK: Trachea appears to be central. No masses noted. No JVD or thyromegaly appreciated. RESPIRATORY: Chest is symmetrical. No intercostals muscle retraction or any accessory muscle activation. There is no chest wall tenderness. Breath sounds are heard bilaterally. No rales or rhonchi heard. No evidence of any consolidation. BREASTS: Deferred. HEART: The heart sounds are normal. No S3 or S4. Early diastolic murmur grade 2 or 6 in the second aortic area. No pericardial rub ABDOMEN: No vessel pulsations or distention. No tenderness. No organomegaly appreciated. Bowel sounds are normally heard. : Deferred. RECTAL: Deferred. LYMPHATIC: No lymphadenopathy noted in the neck. EXTREMITIES: No edema or cyanosis. No clubbing. MUSCULOSKELETAL: No acute joint deformities or swelling SKIN: There are no significant rashes or ecchymosis NEUROPSYCHIATRIC: The patient is alert and oriented x3. Appears to be in a good mood. No tremors or rigidity noted. Data : 04/20/22 04:21 04/20/22 05:08 Other Labs: Laboratory Last Values WBC 5.8 10^3/uL (4.0-10.0) 04/20/22 04:21 RBC 2.72 10^6/uL (4.1-5.3) L 04/20/22 04:21 Hgb 10.3 g/dL (11.5-15.3) L 04/20/22 04:21 Hct 29.3 % (37.0-47.0) L 04/20/22 04:21 MCV 107.7 fl (81-99) H 04/20/22 04:21 MCH 37.9 pg (28.0-34.0) H 04/20/22 04:21 MCHC 35.2 g/dL (30.0-36.0) 04/20/22 04:21 RDW 16.5 % (12.1-15.1) H 04/20/22 04:21 Plt Count 122 10^3/cmm (130-400) L D 04/20/22 04:21 MPV 12.8 fL (7.4-10.4) H 04/20/22 04:21 Neut % (Auto) 64.6 % 04/20/22 04:21 Lymph % (Auto) 23.0 % 04/20/22 04:21 [place] % (Auto) 8.6 % 04/20/22 04:21 Eos % (Auto) 2.4 % 04/20/22 04:21 Baso % (Auto) 0.9 % 04/20/22 04:21 Neut # (Auto) 3.76 10^3/uL (1.8-7.7) 04/20/22 04:21 Lymph # (Auto) 1.3 10^3/uL (0.8-4.8) 04/20/22 04:21 [place] # (Auto) 0.5 10^3/uL (0.2-0.9) 04/20/22 04:21 Eos # (Auto) 0.1 10^3/uL (0.0-0.8) 04/20/22 04:21 Baso # (Auto) 0.1 10^3/uL (0.0-0.1) 04/20/22 04:21 Nucleated RBC % (auto) 0 % 04/20/22 04:21 Nucleated RBCs # 0.0 /100WBC 04/20/22 04:21 D-Dimer 2.32 ug/mIFEU (0-0.59) H 04/19/22 15:10 Sodium 139 mmol/L (136-145) 04/20/22 05:08 Potassium 3.5 mmol/L (3.5-5.1) 04/20/22 05:08 Chloride 105 mmol/L (98-107) 04/20/22 05:08 Carbon Dioxide 20 mmol/L (22-29) L 04/20/22 05:08 Anion Gap 17.5 (5-19) 04/20/22 05:08 BUN 27 mg/dL (8-23) H 04/20/22 05:08 Creatinine 1.2 mg/dL (0.5-0.9) H 04/20/22 05:08 GFR Calculation Not Reportable 04/20/22 05:08 Glucose 121 mg/dL (65-115) H 04/20/22 05:08 Calculated Osmolality 294 mOsm/kg (285-295) 04/20/22 05:08 Calcium 8.8 mg/dL (8.5-10.5) 04/20/22 05:08 Magnesium 1.9 mg/dL (1.7-2.3) 04/20/22 05:08 Total Bilirubin 1.5 mg/dL (0.15-1.2) H 04/19/22 15:10 AST 15 U/L (0-32) 04/19/22 15:10 ALT 11 U/L (0-33) 04/19/22 15:10 Alkaline Phosphatase 101 U/L (35-105) 04/19/22 15:10 Troponin T Baseline 47 ng/L (0-10) H 04/19/22 22:28 Troponin T 120 Minute 51.18 ng/L (0-10) H 04/20/22 01:07 Delta Troponin T 4.18 ABS# (0-10) 04/20/22 01:07 Troponin T Hi Sens 6Hr 48.87 ng/L (0-10) H 04/20/22 05:08 Troponin T Hi Sens 6Hr Delta 1.87 ng/L (0-12) 04/20/22 05:08 NT-Pro-B Natriuret Pep 5819 pg/mL (0-125) H 04/19/22 15:10 Total Protein 6.2 g/dL (6.6-8.7) L 04/19/22 15:10 Albumin 3.6 g/dL (3.5-5.2) 04/19/22 15:10 Globulin 2.6 g/dL (1.3-4.6) 04/19/22 15:10 TSH 1.89 uIU/mL (0.27-4.20) 04/19/22 15:10 SARS-CoV-2 Ag (Rapid) Negative (Negative) 04/19/22 15:10 Echo: My impression: Normal left ventricular size and systolic function, EF 72 %. No ?regional wall motion abnormalities. ?Mild biatrial enlargement ?Moderately severe aortic regurgitation. ?Thickened mitral valve. Mild mitral annular calcification. ?Mild pulmonary valve regurgitation. ?Trace tricuspid valve regurgitation. ?Estimated pulmonary artery peak systolic pressure was 25 mmHg.? ?This could be an underestimation because of the poor Doppler ?signals ?There is no pericardial effusion. ?No similar previous studies are available for comparison EKG 1: My Interpretation: Sinus rhythm with third-degree heart block. Sinus rate of 90 bpm. Junctional escape rhythm rate of [address]-T changes. EKG computer-generated impression: Chest X-Ray 04/19/22 14:49 IMPRESSION: 1. Right central line extends into the SVC 2. Low lung volumes seen. 3. The lungs are otherwise clear Chest CTA 04/19/22 16:02 IMPRESSION: 1. Large pulmonary embolism right lower lobe pulmonary artery . 2. Negative for right heart strain. 3. Scattered interstitial densities in both lungs as described 4. Unremarkable thoracic aorta 5. Pleural thickening posterior aspect of the bilateral lower lobes. ADDENDUM: 04/19/221707 Findings were discussed with NEEMA SANDHU at 04/19/2022 5:07 PM CDT. Venous Duplex 04/19/22 19:30 IMPRESSION: 1. Occlusive thrombus within the superficial right small saphenous vein which extends into the peroneal trunk within the calf. 2. No DVT in the left leg. EKG 2: My Interpretation: Sinus bradycardia with a rate of 48 bpm. Occasional PVC. No acute ST-T changes. EKG computer-generated impression: Chest X-Ray 04/19/22 14:49 IMPRESSION: 1. Right central line extends into the SVC 2. Low lung volumes seen. 3. The lungs are otherwise clear Chest CTA 04/19/22 16:02 IMPRESSION: 1. Large pulmonary embolism right lower lobe pulmonary artery . 2. Negative for right heart strain. 3. Scattered interstitial densities in both lungs as described 4. Unremarkable thoracic aorta 5. Pleural thickening posterior aspect of the bilateral lower lobes. ADDENDUM: 04/19/221707 Findings were discussed with NEEMA SANDHU at 04/19/2022 5:07 PM CDT. Venous Duplex 04/19/22 19:30 IMPRESSION: 1. Occlusive thrombus within the superficial right small saphenous vein which extends into the peroneal trunk within the calf. 2. No DVT in the left leg. A&P Assessment and plan (1) AV heart block: For patient had intermittent high degree AV block. Because of the pulmonary embolism and the shortness of breath it is difficult to say whether that is causing the symptoms or not. She seems to be hemodynamically stable. Most likely her symptoms are related to the pulmonary embolism. (2) Elevated troponin: Possibly from the pulmonary embolism/heart block. Underlying coronary artery disease cannot be excluded. May require a Myocardial perfusion imaging sometime down the line, to better evaluate for coronary ischemia. (3) Aortic regurgitation: Patient seems to have moderately severe aortic dilatation. This may need to be further evaluated with a MONICA. (4) Ovarian cancer: Patient undergoing chemotherapy. (5) Pulmonary embolism on right: Patient is on oral anticoagulation. (6) Venous thromboembolism: Patient is on anticoagulation. Management as per the primary attending. Plan Other problems are Stage II kidney disease Mild anemia patient needs to be closely monitored on telemetry to see whether she develops any symptomatic bradycardia. Based on the clinical progress, further recommendations will be made. At this point, I may hold off for any cardiac intervention. Thank for the opportunity to eval this patient and make these recommendations Coding Level of Care Code Acute Top Inventory Control Executive for Zara Carbajal History Expanded Problem Focused Exam Expanded Problem Focused Medical Decision Making High Complexity Diagnoses AV heart block I44.30 Elevated troponin R77.8 Aortic regurgitation I35.1 Ovarian cancer C56.9 Pulmonary embolism on right I26.99 Venous thromboembolism I82.90
[2022-04-20] MEDS: FUROsemide 20 mg Tablet PO (10:06)
[2022-04-20] MEDS: pantoprazole DR 40 mg Tablet PO (10:06)
[2022-04-20] MEDS: buPROPion SR (12 HR) 100 mg Tablet 200 MG PO (10:07)
[2022-04-20] MEDS: potassium chloride ER 20 mEq Tablet PO (10:07)
[2022-04-20] MEDS: atorvastatin 40 mg Tablet PO (10:07)
[2022-04-20] MEDS: escitalopram 10 mg Tablet PO (10:08)
[2022-04-20] MEDS: amlodipine 5 mg Tablet PO (10:08)
--- NOTE | 2022-04-20 11:52 | P.PN_ITS ---
Subjective Subjective: Patient is doing well on room air We will asked nurse to put her on pulse ox Monitoring heart rate on telemetry for now Switched to Lovenox therapeutic regimen No intervention as per cardiology for now Hemoglobin 10.3 Most likely she will need Lovenox therapeutic regimen at the time of discharge Considering history of cancer No significant leakage of troponin No active chest pain Patient stating that she has been getting lightheaded and short of breath at home Her creatinine is 1.2 Vitals/I&O/Wt Last Vital Signs Temp 98.3 F 04/20/22 07:48 Pulse 52 L 04/20/22 07:48 Resp 20 H 04/20/22 07:48 BP 189/56 04/20/22 07:48 Pulse Ox 92 04/20/22 07:48 O2 Del Method 04/20/22 07:48 04/19/22 04/20/22 04/20/22 22:59 06:59 14:59 Intake Total 200 / 200 120 / 320 240 / 240 Balance 200 / 200 120 / 320 240 / 240 Weight last 48 hrs Weight 113.398 kg Weight 113.398 kg Physical Exam Narrative: Awake and alert Looks euvolemic Heart rate in 50s Sinus rhythm with first-degree AV block QTC prolonged on one of the EKGs otherwise its normal Awake and alert Nonfocal neuro exam Currently doing well on room air Very pleasant and cooperative during my evaluation Abdomen is soft no edema of legs Data : 04/20/22 04:21 04/20/22 05:08 A&P Assessment and plan (1) Venous thromboembolism: (2) Aortic regurgitation: (3) AV heart block: (4) Elevated troponin: (5) NSTEMI (non-ST elevated myocardial infarction): (6) Pulmonary embolism on right: (7) Ovarian cancer: (8) Chronic kidney disease: Plan Acute pulm embolism Like related to cancer Will use Lovenox for now No right heart strain However EKG troponin is noted We will follow-up with echo to see any wall motion abnormality Hypertensive urgency, will add low-dose Lasix along potassium supplementation Added amlodipine, holding YINKA or ARB Chronic kidney disease: Creatinine seems to be around baseline for now Third-degree AV block: Intermittent Patient is endorsing lightheadedness and shortness of breath at home Dr. Richey is monitoring for now No plan for intervention as per Dr. Liriano recommendation We will keep her n.p.o. in case she would require any pacemaker evaluation tomorrow She is not on any AV derrick blocking agent NSTEMI Type II [place]? no Active chest pain Full code Cardiac diet DVT prophylaxis sufficed with therapeutic Lovenox Her neck therapeutic Lovenox dose will be 6 PM because she received Xarelto this morning Her oncologist is in [place] who recommended PET scan, she will do it outpatient Attestations Medical Necessity Statement*: Continue hospitalization Time Spent in Patient Care: 45 Coding Level of Care Code Acute Field Support Technician for Chg Fwd Diagnoses Venous thromboembolism I82.90 Aortic regurgitation I35.1 AV heart block I44.30 Elevated troponin R77.8 NSTEMI (non-ST elevated myocardial infarction) I21.4 Pulmonary embolism on right I26.99 Ovarian cancer C56.9 Chronic kidney disease N18.9
[2022-04-20] MEDS: hyDRALAzine 10 mg Tablet PO ×2 (13:59→20:49)
[2022-04-20] MEDS: enoxaparin 120 mg/0.8 mL Syringe 110 MG SUBCUT (18:31)
[2022-04-21] VITALS (18 sets, daily range): BP systolic 153–190; BP diastolic 49–63; PULSE 44–63; RESP 16–24; TEMP 36.3–37; O2SAT 92–96
[2022-04-21] MEDS: hyDRALAzine 25 mg Tablet PO ×4 (00:27→20:39)
[2022-04-21] MEDS: ipratropium-albuterol 3 mL Neb INHALATION ×4 (01:19→20:27)
[2022-04-21] MEDS: acetaminophen 325 mg Tablet 650 MG PO ×2 (01:28→14:00)
[2022-04-21] MEDS: LORazepam 0.5 mg Tablet PO (01:28)
[2022-04-21 03:08] LABS: Basophils # 0.1 10^3/uL (0.0-0.1); Basophils % 0.7 %; Eosinophils % 0.6 %; Hematocrit 30.4 % (37.0-47.0); Hemoglobin 10.1 g/dL (11.5-15.3); Lymphocytes # 0.7 10^3/uL (0.8-4.8); Lymphocytes % 10.8 %; Mean Corpuscular HGB Conc 33.2 g/dL (30.0-36.0); Mean Corpuscular Volume 111.4 fl (81-99); Mean Platelet Volume 12.3 fL (7.4-10.4); Monocytes # 0.5 10^3/uL (0.2-0.9); Monocytes % 7.5 %; Neutrophils # 5.46 10^3/uL (1.8-7.7); Nucleated Red Blood Cells % 0 %; Platelet Count 185 10^3/cmm (130-400); Red Blood Count 2.73 10^6/uL (4.1-5.3); Red Cell Distribution Width 16.3 % (12.1-15.1); White Blood Count 6.8 10^3/uL (4.0-10.0)
[2022-04-21 03:30] LABS: Anion Gap 14.8 (5-19); Blood Urea Nitrogen 25 mg/dL (8-23); Calcium 8.2 mg/dL (8.5-10.5); Carbon Dioxide 20 mmol/L (22-29); Chloride 108 mmol/L (98-107); Glucose 166 mg/dL (65-115); Osmolality Calculated 296 mOsm/kg (285-295); Potassium 3.8 mmol/L (3.5-5.1); Sodium 139 mmol/L (136-145)
[2022-04-21] MEDS: enoxaparin 120 mg/0.8 mL Syringe 110 MG SUBCUT (05:42)
[2022-04-21] MEDS: buPROPion SR (12 HR) 100 mg Tablet 200 MG PO (08:08)
[2022-04-21] MEDS: potassium chloride ER 20 mEq Tablet PO ×2 (08:08→19:20)
[2022-04-21] MEDS: atorvastatin 40 mg Tablet PO (08:08)
[2022-04-21] MEDS: pantoprazole DR 40 mg Tablet PO (08:08)
[2022-04-21] MEDS: escitalopram 10 mg Tablet PO (08:08)
[2022-04-21] MEDS: amlodipine 10 mg Tablet PO (08:08)
[2022-04-21] MEDS: FUROsemide 20 mg Tablet PO (08:08)
--- NOTE | 2022-04-21 08:37 | ECG_ITS ---
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 Measurements Intervals [place] Rate: 52 P: MT: QRS: -35 QRSD: 107 T: 62 QT: 425 QTc: 398 Interpretive Statements SINUS BRADYCARDIA WITH 2ND DEGREE AV BLOCK, 2:1 OR MOBITZ TYPE II LEFT AXIS DEVIATION [QRS AXIS < -30] POSSIBLE ANTERIOR MYOCARDIAL INFARCTION , PROBABLY OLD [30 ms Q WAVE IN V3/V4, OR R < 0.2 mV IN V4] CRITICAL TEST RESULT Compared to ECG 04/20/2022 04:56:33 First degree AV block no longer present Prolonged QT interval no longer present Myocardial infarct finding still present Electronically Signed On 04-22-2022 6:07:15 CDT by Barbara Resendiz M.D. [email or web address]
--- NOTE | 2022-04-21 08:38 | XR_ITS ---
WS: [id number] Exam: XR chest 1V portable [id number] Date/Time of Exam: 04/21/2022 8:54 AM Reason For Exam: sob Comparison 04/19/2022. Mild cardiac enlargement with pulmonary vascular congestion suspicious for low-grade CHF. The lungs a re fully inflated. No pleural effusions are seen. A right-sided port ends at the cavoatrial junction. The mediastinum is normal in contour. XR/XR chest 1V portable [id number] IMPRESSION: 1. Mild cardiac enlargement with mild pulmonary vascular congestion which may i ndicate early CHF. 2. Pulmonary hyperinflation suggesting the possibility of obstructive lung dise ase.
--- NOTE | 2022-04-21 08:56 | P.PN_ITS ---
Subjective Subjective: She was complaining of shortness of breath started last night She is experiencing orthopnea Chest x-ray did show mild vascular congestion I gave her IV Lasix requested EKG which showed Mobitz type II block She was n.p.o. She got Lovenox [address] Richey recommended evaluation tomorrow for pacemaker as she is short of breath today we will let her eat I will give her 1 DuoNeb treatment right now with IV Lasix repeat chest x-ray Vitals/I&O/Wt Last Vital Signs Temp 98.0 F 04/21/22 07:32 Pulse 58 L 04/21/22 07:49 Resp 20 H 04/21/22 07:49 BP 176/58 04/21/22 07:32 Pulse Ox 93 04/21/22 07:49 O2 Del Method 04/21/22 07:49 O2 Flow Rate 2 04/21/22 07:49 04/20/22 04/21/22 04/21/22 22:59 06:59 14:59 Intake Total 610 / 1090 Balance 610 / 1090 Weight last 48 hrs Weight 113.398 kg Weight 113.398 kg Physical Exam Narrative: Pleasant and cooperative Currently on 1 L nasal cannula Bilateral breath sounds with mild crackles Abdomen soft No significant signs of fluid overload Abdomen soft She is awake and alert No active chest pain Data : 04/21/22 02:54 04/21/22 02:54 A&P Assessment and plan (1) Chronic kidney disease: (2) Aortic regurgitation: (3) Venous thromboembolism: (4) AV heart block: (5) Elevated troponin: (6) NSTEMI (non-ST elevated myocardial infarction): (7) Pulmonary embolism on right: (8) Ovarian cancer: Plan Acute pulmonary embolism Symptomatic PE She is getting therapeutic Lovenox She will most likely get therapeutic Lovenox at the time of discharge as well She has history of cancer No right heart strain Echo looks normal She had high BNP Hypertension Intermittent third-degree AV block today's EKG showing type II AV block 221 Mobitz type II She is short of breath secondary to fluid overload She will need pacemaker evaluation tomorrow we will keep her n.p.o. Hold her Lovenox tonight She got 1 dose 6 AM today Chronic kidney disease creatinine seems around baseline Hypertension: Discontinued lisinopril, I have increased the dose of hydralazine, increase the dose of amlodipine Diastolic congestive heart failure acute exacerbation Continue Lasix High BNP Echo shows preserved ejection fraction No regional wall motion abnormality She is full code She is on cardiac diet She will be n.p.o. after midnight Holding therapeutic Lovenox for tonight Attestations Medical Necessity Statement*: Continue medical management Time Spent in Patient Care: 40 Coding Level of Care Code Acute Delivery Manager for g Fwd Diagnoses Chronic kidney disease N18.9 Aortic regurgitation I35.1 Venous thromboembolism I82.90 AV heart block I44.30 Elevated troponin R77.8 NSTEMI (non-ST elevated myocardial infarction) I21.4 Pulmonary embolism on right I26.99 Ovarian cancer C56.9
[2022-04-21] MEDS: FUROsemide 10 mg/mL SDV 4mL 40 MG IVP ×2 (09:15→19:21)
[2022-04-21] MEDS: saline nasal spray 44mL Btl 1 SPRAY NASAL (09:15)
[2022-04-21 10:53] LABS: Add Urine Culture? Yes; Add Urine Microscopic? YES; Bacteria Urine 4+ /hpf; Bilirubin Urine Neg (Negative); Blood Urine 3+ (Negative); Glucose Urine UA Norm (Normal); Ketones Urine Negative (Negative); Leukocyte Esterase Urine 2+ (Negative); Nitrate Urine Positive (Negative); Protein Urine 1+ (Negative); RBC Urine 0-4 /hpf (0-2); Specific Gravity, Urine 1.005 (1.005-1.030); Squamous Epithelial Cell Urine 0-4 /hpf (0-5); Urine Appearance Cloudy (CLEAR); Urine Color Yellow (Yellow); Urobilinogen Urine Norm (Negative); WBC Urine TOO NUMEROUS TO CNT /hpf (0-5); pH Urine 5 (5-7)
[2022-04-21] MEDS: cefTRIAXone 1,000 MG in sodium chloride 0.9% (plus) 50 ML 100 MG IV (11:50)
[2022-04-21 12:27] LABS: Adenovirus Not Detected (NOT DETECT); Chlamydia Pneumoniae Not Detected (NOT DETECT); Coronavirus 229E,HKU1,NL63,OC4 Not Detected (NOT DETECT); Human Metapneumovirus Not Detected (NOT DETECT); Human Rhinovirus/Enterovirus Detected (NOT DETECT); Influenza A Not Detected (NOT DETECT); Influenza A H1 Not Detected (NOT DETECT); Influenza A H1-2009 Not Detected (NOT DETECT); Influenza A H3 Not Detected (NOT DETECT); Influenza B Not Detected (NOT DETECT); Mycoplasma Pneumoniae Not Detected (NOT DETECT); Parainfluenza Virus Type 1 Not Detected (NOT DETECT); Parainfluenza Virus Type 2 Not Detected (NOT DETECT); Parainfluenza Virus Type 3 Not Detected (NOT DETECT); Parainfluenza Virus Type 4 Not Detected (NOT DETECT); Respiratory Syncytial Virus A Not Detected (NOT DETECT); Respiratory Syncytial Virus B Not Detected (NOT DETECT); SARS-COV-2 Not Detected (NOT DETECT)
[2022-04-21 12:30] LABS: Human Metapneumovirus Not Detected (NOT DETECT); Human Rhinovirus/Enterovirus Detected (NOT DETECT); Results from Genmark
[2022-04-21] MEDS: morphine 4 mg/mL SDV 1 mL 2 MG IVP (16:24)
--- NOTE | 2022-04-21 18:09 | PM.PN ---
Subjective Subjective: Patient is complaining of shortness of breath and extreme fatigue/weakness. Denies any chest pain. Continues to be in high degree AV block with a heart rate in the 50s and upper 40s. Medications: Medication Review Details: Current Medications Acetaminophen (Acetaminophen 325 Mg Tablet) 650 mg PO Q6H PRN PRN Reason: Mild/Mod Pain Or Temp >/= 101 Last Admin: 04/21/22 14:00 Dose: 650 mg Albuterol/Ipratropium (Ipratropium-Albuterol 3 Ml Neb) 3 ml INHALATION Q6H PRN PRN Reason: SHORTNESS OF BREATH Last Admin: 04/21/22 01:19 Dose: 3 ml Albuterol/Ipratropium (Ipratropium-Albuterol 3 Ml Neb) 3 ml INHALATION Q6H.RESP [facility] Last Admin: 04/21/22 14:08 Dose: 3 ml Amlodipine Besylate (Amlodipine 10 Mg Tablet) 10 mg PO DAILY [facility] Last Admin: 04/21/22 08:15 Dose: Not Given Atorvastatin Calcium (Atorvastatin 40 Mg Tablet) 40 mg PO DAILY [facility] Last Admin: 04/21/22 08:08 Dose: 40 mg Atropine Sulfate (Atropine 0.1 Mg/Ml Syr 10 Ml) 0.5 mg IVP Q5MIN PRN PRN Reason: HR<60, hypotention, pt symptomatic Bupropion HCl (Bupropion Sr (12 Hr) 100 Mg Tablet) 200 mg PO DAILY [facility] Last Admin: 04/21/22 08:08 Dose: 200 mg Enoxaparin Sodium (Enoxaparin 120 Mg/0.8 Ml Syringe) 110 mg SUBCUT Q12H [facility] Last Admin: 04/21/22 05:42 Dose: 110 mg Escitalopram Oxalate (Escitalopram 10 Mg Tablet) 10 mg PO DAILY [facility] Last Admin: 04/21/22 08:08 Dose: 10 mg Furosemide (Furosemide 10 Mg/Ml Sdv 4ml) 40 mg IVP Q24H ASHLEE Furosemide (Furosemide 10 Mg/Ml Sdv 4ml) 40 mg IVP ONCE ONE Stop: 04/21/22 20:01 Hydralazine HCl (Hydralazine 25 Mg Tablet) 25 mg PO TID [facility] Last Admin: 04/21/22 15:54 Dose: 25 mg Ceftriaxone Sodium 1,000 mg/ (Sodium Chloride) 50 mls @ 100 mls/hr IV Q24H [facility]; Protocol Last Infusion: 04/21/22 14:05 Dose: Infused Lorazepam (Lorazepam 0.5 Mg Tablet) 0.5 mg PO BID PRN PRN Reason: Anxiety Last Admin: 04/21/22 01:28 Dose: 0.5 mg Non-Formulary Medication (Lynparza) 300 mg PO BID@0000,1200 [facility] Last Admin: 04/21/22 11:51 Dose: 300 mg Pantoprazole Sodium (Pantoprazole Dr 40 Mg Tablet) 40 mg PO DAILY [facility] Last Admin: 04/21/22 08:08 Dose: 40 mg Potassium Chloride (Potassium Chloride Er 20 Meq Tablet) 20 meq PO DAILY [facility] Last Admin: 04/21/22 08:08 Dose: 20 meq Rivaroxaban (Rivaroxaban 10 Mg Tablet) 15 mg PO Q12H [facility] Last Admin: 04/20/22 05:56 Dose: 15 mg Sodium Chloride (Saline Nasal Viper 44ml Btl) 1 spray NASAL PRN PRN PRN Reason: DRYNESS Last Admin: 04/21/22 09:15 Dose: 1 spray Vitals/I&O/Wt Last Vital Signs Temp 98.1 F 04/21/22 15:35 Pulse 57 L 04/21/22 15:35 Resp 20 H 04/21/22 15:35 BP 157/53 04/21/22 15:35 Pulse Ox 94 04/21/22 15:35 O2 Del Method 04/21/22 15:35 O2 Flow Rate 3 04/21/22 14:09 04/21/22 04/21/22 04/21/22 06:59 14:59 22:59 Intake Total 430 / 430 Balance 430 / 430 Weight last 48 hrs Weight 250 lb Physical Exam Narrative: GENERAL: The patient is alert and oriented times three. Not in any acute distress. Morbidly obese HEENT: No significant pallor, icterus or lymphadenopathy.Oral cavity: There are no mucous membrane lesions. NECK: Trachea appears to be central. No masses noted. No JVD or thyromegaly appreciated. RESPIRATORY: Chest is symmetrical. No intercostals muscle retraction or any accessory muscle activation. There is no chest wall tenderness. Breath sounds are heard bilaterally. No rales or rhonchi heard. No evidence of any consolidation. BREASTS: Deferred. HEART: The heart sounds are normal. No S3 or S4. Early diastolic murmur grade 2 or 6 in the second aortic area. No pericardial rub ABDOMEN: No vessel pulsations or distention. No tenderness. No organomegaly appreciated. Bowel sounds are normally heard. : Deferred. RECTAL: Deferred. LYMPHATIC: No lymphadenopathy noted in the neck. EXTREMITIES: No edema or cyanosis. No clubbing. MUSCULOSKELETAL: No acute joint deformities or swelling SKIN: There are no significant rashes or ecchymosis NEUROPSYCHIATRIC: The patient is alert and oriented x3. Appears to be in a good mood. No tremors or rigidity noted. Data : 04/21/22 02:54 04/21/22 02:54 Other Labs: Laboratory Last Values WBC 6.8 10^3/uL (4.0-10.0) 04/21/22 02:54 RBC 2.73 10^6/uL (4.1-5.3) L 04/21/22 02:54 Hgb 10.1 g/dL (11.5-15.3) L 04/21/22 02:54 Hct 30.4 % (37.0-47.0) L 04/21/22 02:54 MCV 111.4 fl (81-99) H 04/21/22 02:54 MCH 37.0 pg (28.0-34.0) H 04/21/22 02:54 MCHC 33.2 g/dL (30.0-36.0) D 04/21/22 02:54 RDW 16.3 % (12.1-15.1) H 04/21/22 02:54 Plt Count 185 10^3/cmm (130-400) D 04/21/22 02:54 MPV 12.3 fL (7.4-10.4) H 04/21/22 02:54 Neut % (Auto) 80.0 % 04/21/22 02:54 Lymph % (Auto) 10.8 % 04/21/22 02:54 Patrick % (Auto) 7.5 % 04/21/22 02:54 Eos % (Auto) 0.6 % 04/21/22 02:54 Baso % (Auto) 0.7 % 04/21/22 02:54 Neut # (Auto) 5.46 10^3/uL (1.8-7.7) 04/21/22 02:54 Lymph # (Auto) 0.7 10^3/uL (0.8-4.8) L 04/21/22 02:54 Patrick # (Auto) 0.5 10^3/uL (0.2-0.9) 04/21/22 02:54 Eos # (Auto) 0.0 10^3/uL (0.0-0.8) 04/21/22 02:54 Baso # (Auto) 0.1 10^3/uL (0.0-0.1) 04/21/22 02:54 Nucleated RBC % (auto) 0 % 04/21/22 02:54 Nucleated RBCs # 0.0 /100WBC 04/21/22 02:54 D-Dimer 2.32 ug/mIFEU (0-0.59) H 04/19/22 15:10 Sodium 139 mmol/L (136-145) 04/21/22 02:54 Potassium 3.8 mmol/L (3.5-5.1) 04/21/22 02:54 Chloride 108 mmol/L (98-107) H 04/21/22 02:54 Carbon Dioxide 20 mmol/L (22-29) L 04/21/22 02:54 Anion Gap 14.8 (5-19) 04/21/22 02:54 BUN 25 mg/dL (8-23) H 04/21/22 02:54 Creatinine 1.3 mg/dL (0.5-0.9) H 04/21/22 02:54 GFR Calculation Not Reportable 04/21/22 02:54 Glucose 166 mg/dL (65-115) H 04/21/22 02:54 Calculated Osmolality 296 mOsm/kg (285-295) H 04/21/22 02:54 Calcium 8.2 mg/dL (8.5-10.5) L 04/21/22 02:54 Magnesium 1.9 mg/dL (1.7-2.3) 04/20/22 05:08 Total Bilirubin 1.5 mg/dL (0.15-1.2) H 04/19/22 15:10 AST 15 U/L (0-32) 04/19/22 15:10 ALT 11 U/L (0-33) 04/19/22 15:10 Alkaline Phosphatase 101 U/L (35-105) 04/19/22 15:10 Troponin T Baseline 47 ng/L (0-10) H 04/19/22 22:28 Troponin T 120 Minute 51.18 ng/L (0-10) H 04/20/22 01:07 Delta Troponin T 4.18 ABS# (0-10) 04/20/22 01:07 Troponin T Hi Sens 6Hr 48.87 ng/L (0-10) H 04/20/22 05:08 Troponin T Hi Sens 6Hr Delta 1.87 ng/L (0-12) 04/20/22 05:08 NT-Pro-B Natriuret Pep 5819 pg/mL (0-125) H 04/19/22 15:10 Total Protein 6.2 g/dL (6.6-8.7) L 04/19/22 15:10 Albumin 3.6 g/dL (3.5-5.2) 04/19/22 15:10 Globulin 2.6 g/dL (1.3-4.6) 04/19/22 15:10 TSH 1.89 uIU/mL (0.27-4.20) 04/19/22 15:10 Urine Color Yellow (Yellow) 04/21/22 10:15 Urine Appearance Cloudy (CLEAR) 04/21/22 10:15 Urine pH 5 (5-7) 04/21/22 10:15 Ur Specific [place] 1.005 (1.005-1.030) 04/21/22 10:15 Urine Protein 1+ (Negative) H 04/21/22 10:15 Urine Glucose (UA) Norm (Normal) 04/21/22 10:15 Urine Ketones Negative (Negative) 04/21/22 10:15 Urine Blood 3+ (Negative) H 04/21/22 10:15 Urine Nitrate Positive (Negative) H 04/21/22 10:15 Urine Bilirubin Neg (Negative) 04/21/22 10:15 Urine Urobilinogen Norm mg/dL (Negative) 04/21/22 10:15 Ur Leukocyte Esterase 2+ (Negative) H 04/21/22 10:15 Urine RBC 0-4 /hpf (0-2) H 04/21/22 10:15 Urine WBC Too numerous to cnt /hpf (0-5) H 04/21/22 10:15 Ur Squamous Epith Cells 0-4 /hpf (0-5) H 04/21/22 10:15 Amorphous Sediment Not Reportable 04/21/22 10:15 Urine Bacteria 4+ /hpf (NONE) H 04/21/22 10:15 Coronavirus 229E (PCR) Not detected (NOT DETECT) 04/21/22 09:30 Human Metapneumovir PCR Not detected (NOT DETECT) 04/21/22 12:30 Entero/Rhino (PCR) Detected (NOT DETECT) A 04/21/22 12:30 SARS-CoV-2 (PCR) Not detected (NOT DETECT) 04/21/22 09:30 SARS-CoV-2 Ag (Rapid) Negative (Negative) 04/19/22 15:10 A&P Assessment and plan (1) AV heart block: For patient had intermittent high degree AV block. We may repeat the chest x-ray today. Also evaluate for any oxygen desaturation with activities. If she has significant desaturation, we may have to wait till that is improved before proceeding with the pacemaker. (2) Elevated troponin: Possibly from the pulmonary embolism/heart block. Underlying coronary artery disease cannot be excluded. May require a Myocardial perfusion imaging sometime down the line, to better evaluate for coronary ischemia. (3) Aortic regurgitation: Patient seems to have moderately severe aortic regurgitation. This may need to be further evaluated with a MONICA. (4) Ovarian cancer: Patient undergoing chemotherapy. (5) Pulmonary embolism on right: Patient is on oral anticoagulation. (6) Venous thromboembolism: Patient is on anticoagulation. Management as per the primary attending. (7) Acute diastolic heart failure: The diastolic heart failure also could be contributing factor for her overall symptomatology. We will try to optimize the diuretic treatment. Plan Other problems are Stage II kidney disease Mild anemia patient needs to be closely monitored on telemetry to see whether she develops any symptomatic bradycardia. Based on the clinical progress, further recommendations will be made. We will try to optimize the diuretic treatment. Attestations Medical Necessity Statement*: Patient requires continued hospital stay for close monitoring and further management Coding Level of Care Code Acute Sand Carrier for Chg Fwd History Expanded Problem Focused Exam Expanded Problem Focused Medical Decision Making Moderate Complexity Diagnoses AV heart block I44.30 Elevated troponin R77.8 Aortic regurgitation I35.1 Ovarian cancer C56.9 Pulmonary embolism on right I26.99 Venous thromboembolism I82.90 Acute diastolic heart failure I50.31
[2022-04-21] MEDS: isosorbide mononitrate ER 30 mg Tablet PO (19:19)
[2022-04-21 19:38] LABS: Platelet Count 235 10^3/cmm (130-400)
[2022-04-21 19:49] LABS: Partial Thromboplastin Time 36.3 SECONDS (23.9-36.7)
[2022-04-21] MEDS: heparin 5,000 unit/mL INJ 1 mL 5000 UNIT IVP (20:39)
[2022-04-21] MEDS: heparin drip 25,000 UNIT/500 ML PREMIX 34 UNIT IV (20:43)
[2022-04-22] VITALS (14 sets, daily range): BP systolic 132–161; BP diastolic 50–61; PULSE 54–60; RESP 16–26; TEMP 36.3–36.8; O2SAT 91–95
[2022-04-22] MEDS: ipratropium-albuterol 3 mL Neb INHALATION ×4 (02:14→21:33)
[2022-04-22] MEDS: FUROsemide 10 mg/mL SDV 4mL 40 MG IVP ×3 (02:23→18:16)
[2022-04-22] MEDS: potassium chloride ER 20 mEq Tablet PO ×4 (02:23→18:12)
[2022-04-22 02:53] LABS: Basophils % 0.6 %; Eosinophils # 0.1 10^3/uL (0.0-0.8); Eosinophils % 0.7 %; Hematocrit 31.1 % (37.0-47.0); Hemoglobin 9.6 g/dL (11.5-15.3); Lymphocytes # 1.6 10^3/uL (0.8-4.8); Lymphocytes % 23.9 %; Mean Corpuscular HGB Conc 30.9 g/dL (30.0-36.0); Mean Corpuscular Hemoglobin 36.5 pg (28.0-34.0); Mean Corpuscular Volume 118.3 fl (81-99); Mean Platelet Volume 12.3 fL (7.4-10.4); Monocytes # 0.7 10^3/uL (0.2-0.9); Neutrophils # 4.35 10^3/uL (1.8-7.7); Neutrophils % 64.4 %; Nucleated Red Blood Cells % 0 %; Platelet Count 203 10^3/cmm (130-400); Red Blood Count 2.63 10^6/uL (4.1-5.3); Red Cell Distribution Width 16.5 % (12.1-15.1); White Blood Count 6.8 10^3/uL (4.0-10.0)
[2022-04-22 03:19] LABS: Partial Thromboplastin Time 93.8 SECONDS (23.9-36.7)
[2022-04-22 03:21] LABS: Anion Gap 15.6 (5-19); Blood Urea Nitrogen 25 mg/dL (8-23); Carbon Dioxide 20 mmol/L (22-29); Chloride 104 mmol/L (98-107); Glucose 128 mg/dL (65-115); Osmolality Calculated 288 mOsm/kg (285-295); Potassium 3.6 mmol/L (3.5-5.1); Sodium 136 mmol/L (136-145)
--- NOTE | 2022-04-22 05:00 | XR_ITS ---
WS: [id number] Exam: XR chest 1V portable [id number] Date/Time of Exam: 04/22/2022 4:11 AM Reason For Exam: chf Comparison 04/21/2022. The lungs are fully expanded. No focal infiltrates are seen. Mild cardiac enlargement. There is less pulmonary vascular congestion than noted previously. No pleural effusions. A right subclavian port en ds at the region of the cavoatrial junction. Monitoring leads superimpose the chest. XR/XR chest 1V portable [id number] IMPRESSION: 1. Mild cardiac enlargement. No acute process noted. 2. Much less pulmonary vascular congestion than noted on the prior study.
[2022-04-22] MEDS: pantoprazole DR 40 mg Tablet PO (08:04)
[2022-04-22] MEDS: atorvastatin 40 mg Tablet PO (08:05)
[2022-04-22] MEDS: amlodipine 10 mg Tablet PO (08:05)
[2022-04-22] MEDS: sodium bicarbonate 650 mg Tablet PO ×3 (08:05→20:51)
[2022-04-22] MEDS: isosorbide mononitrate ER 30 mg Tablet PO (08:05)
[2022-04-22] MEDS: buPROPion SR (12 HR) 100 mg Tablet 200 MG PO (08:05)
[2022-04-22] MEDS: hyDRALAzine 25 mg Tablet PO ×3 (08:05→20:51)
[2022-04-22] MEDS: escitalopram 10 mg Tablet PO (08:06)
--- NOTE | 2022-04-22 08:57 | PC.CHAP ---
Pastoral Care Encounter/Spiritual Assessment Type of Contact [] Declined miller apprentice visit [] Patient/Family/Request visit [] Outpatient visit [] Follow-up visit [] Physician referral [] Code/Alert [x] Routine visit [] Staff referral [] Actively dying [] Patient sleeping [] Family support [] [] Out of room [] Palliative care [] [] Receiving care in room [] Pre-surgical visit [] Trauma [] Long length of stay [] ICU visit [] Other: Relational/Emotional Strength [x] Patient feels connected with others/family/visitors/staff [] Distress [] Loneliness/isolation [] Abandonment Spirituality of Patient [] Person of Jane [] Attends Buddhist of their Jane [] Believes in Prayer [] Reads Bible or Hindu materials [] There are Spiritual issues to be addressed Sewer And Inspector Interventions [] Prayer [x] Active listening [x] Non-anxious presence [x] Spiritual/emotional support [] Crisis/trauma care [] Spiritual counseling [] Bereavement support [] Provided bereavement packet [] Provided Bible/devotional materials [] Provided toy/stuffed animal, coloring book to patient or family member [] Provided Communion [] Anointing/[place] [] Salvation [] Completed spiritual assessment [] Other: Impact on Illness or Injury [] Angry [] Fearful [] Anxious [] Often cries [] Exhaustion [] Unable to work [] Unable to attend restoration [] Unable to walk/stand [] Unable to read [] Unable to drive [] Unable to eat/drink [] Unable to sleep [] Unable to be with family [] Patient intubated [] Other: Summary Pt seemed to be in good spirits. She complained she was trying to eat her breakfast which was somewhat unappealing and she could not wear her teeth. She said she lost her teeth due to chemo for breast cancer. Sewer And Inspector inquired if that was the reason she was in hospital and she stated no, she has multiple other problems at the moment. She commented I am a mess . She stated her daughter would be there shortly to visit and to speak with the doctor. As Sewer And Inspector and Pt were talking the doctor appeared and Pt exclaimed, You are too early She asked if he would come back and speak with her daughter. He said he would but then began speaking with Pt. so Sewer And Inspector excused self. Time spent with patient 10m
[2022-04-22 10:23] LABS: Partial Thromboplastin Time 57.2 SECONDS (23.9-36.7)
[2022-04-22] MEDS: cefTRIAXone 1,000 MG in sodium chloride 0.9% (plus) 50 ML 100 MG IV (10:48)
--- NOTE | 2022-04-22 10:52 | P.PN_ITS ---
Subjective Subjective: This morning patient is on room air saturating well Feeling slightly better Adequate diuresis Creatinine worsened to 1.6 I have asked nurses to check her pulse ox when she is ambulating Afebrile Sputum culture has been obtained, she is experiencing green sputum with productive cough Vitals/I&O/Wt Last Vital Signs Temp 98.1 F 04/22/22 07:24 Pulse 55 L 04/22/22 07:56 Resp 18 04/22/22 07:56 BP 161/53 04/22/22 07:24 Pulse Ox 95 04/22/22 07:56 O2 Del Method 04/22/22 07:56 O2 Flow Rate 1 04/22/22 07:56 04/21/22 04/22/22 04/22/22 22:59 06:59 14:59 Intake Total 720 / 1150 230.633 / 1380.633 240 / 240 Output Total 1450 / 1450 Balance 720 / 1150 -1219.367 / -69.367 240 / 240 Physical Exam Narrative: Patient is pleasant and cooperative Currently on room air Saturating 93% Daughter at the bedside Patient looks clinically fluid overloaded She does have edema of lower legs and extremities Productive cough Abdomen soft S1, S2 Crackles auscultated on exam today Data : 04/22/22 02:38 04/22/22 02:38 Micro: Microbiology 04/21/22 10:15 Urine Culture - Preliminary Urine,Clean Catch Gram Negative Rods Gram Negative Rods#2 A&P Assessment and plan (1) Acute diastolic heart failure: (2) Chronic kidney disease: (3) Venous thromboembolism: (4) Aortic regurgitation: (5) AV heart block: (6) Elevated troponin: (7) NSTEMI (non-ST elevated myocardial infarction): (8) Pulmonary embolism on right: (9) Ovarian cancer: Plan Acute pulmonary embolism patient currently on heparin drip Third-degree heart block: Pacemaker evaluation by Dr. Richey, likely will be tommie nned for tomorrow UTI continue ceftriaxone Productive cough we will add Maxime Sandoval Acute diastolic heart failure continue diuresis Acute on chronic kidney disease cardiorenal in nature secondary to diastolic congestive heart failure continue diuresis Acute hypoxia secondary to CHF exacerbation: Currently patient is on room air Third-degree heart block pacemaker by Dr. Richey most likely tomorrow Full code Cardiac diet N.p.o. after midnight Stop heparin after midnight Attestations Medical Necessity Statement*: Continue medical management Time Spent in Patient Care: 40 Coding Level of Care Code Acute Technician Preventative Medicine for Hunterg Fwd Diagnoses Acute diastolic heart failure I50.31 Chronic kidney disease N18.9 Venous thromboembolism I82.90 Aortic regurgitation I35.1 AV heart block I44.30 Elevated troponin R77.8 NSTEMI (non-ST elevated myocardial infarction) I21.4 Pulmonary embolism on right I26.99 Ovarian cancer C56.9
[2022-04-22] MEDS: heparin drip 25,000 UNIT/500 ML PREMIX 29 UNIT IV (15:40)
[2022-04-22 16:43] LABS: Partial Thromboplastin Time 45.1 SECONDS (23.9-36.7)
[2022-04-22] MEDS: doxycycline 100 mg Tablet PO (18:12)
[2022-04-22] MEDS: acetaminophen 325 mg Tablet 650 MG PO (19:40)
[2022-04-22 21:47] LABS: Partial Thromboplastin Time 64.6 SECONDS (23.9-36.7)
--- NOTE | 2022-04-22 22:42 | P.PN_ITS ---
Subjective Subjective: Patient continues to have extreme shortness of breath and weakness as she get up and move around. There is no significant desaturation with exertion. Her heart rate stays in the 50s and low 60s, she gets up and move around. Chest x-ray from today shows improvement of the pulmonary congestion. Medications: Medication Review Details: Current Medications Acetaminophen (Acetaminophen 325 Mg Tablet) 650 mg PO Q6H PRN PRN Reason: Mild/Mod Pain Or Temp >/= 101 Last Admin: 04/22/22 19:40 Dose: 650 mg Albuterol/Ipratropium (Ipratropium-Albuterol 3 Ml Neb) 3 ml INHALATION Q6H PRN PRN Reason: SHORTNESS OF BREATH Last Admin: 04/21/22 01:19 Dose: 3 ml Albuterol/Ipratropium (Ipratropium-Albuterol 3 Ml Neb) 3 ml INHALATION Q6H.RESP [facility] Last Admin: 04/22/22 21:33 Dose: 3 ml Amlodipine Besylate (Amlodipine 10 Mg Tablet) 10 mg PO DAILY [facility] Last Admin: 04/22/22 08:05 Dose: 10 mg Atorvastatin Calcium (Atorvastatin 40 Mg Tablet) 40 mg PO DAILY [facility] Last Admin: 04/22/22 08:05 Dose: 40 mg Atropine Sulfate (Atropine 0.1 Mg/Ml Syr 10 Ml) 0.5 mg IVP Q5MIN PRN PRN Reason: HR<60, hypotention, pt symptomatic Benzonatate (Benzonatate 100 Mg Capsule) 200 mg PO Q6H PRN PRN Reason: COUGH Bupropion HCl (Bupropion Sr (12 Hr) 100 Mg Tablet) 200 mg PO DAILY [facility] Last Admin: 04/22/22 08:05 Dose: 200 mg Doxycycline Monohydrate (Doxycycline 100 Mg Tablet) 100 mg PO BID [facility]; Protocol Last Admin: 04/22/22 18:12 Dose: 100 mg Enoxaparin Sodium (Enoxaparin 120 Mg/0.8 Ml Syringe) 110 mg SUBCUT Q12H [facility] Last Admin: 04/21/22 05:42 Dose: 110 mg Escitalopram Oxalate (Escitalopram 10 Mg Tablet) 10 mg PO DAILY [facility] Last Admin: 04/22/22 08:06 Dose: 10 mg Furosemide (Furosemide 10 Mg/Ml Sdv 4ml) 40 mg IVP Q8H [facility] Last Admin: 04/22/22 18:16 Dose: 40 mg Guaifenesin (Guaifenesin 100 Mg/5 Ml Udc 10 Ml) 200 mg PO Q4H PRN PRN Reason: COUGH AND CONGESTION Heparin Sodium (Porcine) (Heparin 5,000 Unit/Ml Inj 1 Ml) 0 unit IV PRN PRN; Protocol PRN Reason: Heparin weight-base protocol Hydralazine HCl (Hydralazine 25 Mg Tablet) 25 mg PO TID [facility] Last Admin: 04/22/22 20:51 Dose: 25 mg Ceftriaxone Sodium 1,000 mg/ (Sodium Chloride) 50 mls @ 100 mls/hr IV Q24H [facility]; Protocol Last Infusion: 04/22/22 11:28 Dose: Infused Heparin Sodium/Sodium Chloride (Heparin Drip) 25,000 unit in 500 mls @ 0 mls/hr IV .Q0M [facility]; Protocol Stop: 04/22/22 23:00 Last Titration: 04/22/22 17:18 Dose: 13.67 unit/kg/hr, 31 mls/hr Isosorbide Mononitrate (Isosorbide Mononitrate Er 30 Mg Tablet) 30 mg PO DAILY [facility] Last Admin: 04/22/22 08:05 Dose: 30 mg Lorazepam (Lorazepam 0.5 Mg Tablet) 0.5 mg PO BID PRN PRN Reason: Anxiety Last Admin: 04/21/22 01:28 Dose: 0.5 mg Non-Formulary Medication (Lynparza) 300 mg PO BID@0000,1200 [facility] Last Admin: 04/22/22 13:12 Dose: 300 mg Pantoprazole Sodium (Pantoprazole Dr 40 Mg Tablet) 40 mg PO DAILY [facility] Last Admin: 04/22/22 08:04 Dose: 40 mg Potassium Chloride (Potassium Chloride Er 20 Meq Tablet) 20 meq PO Q8H [facility] Last Admin: 04/22/22 18:12 Dose: 20 meq Rivaroxaban (Rivaroxaban 10 Mg Tablet) 15 mg PO Q12H [facility] Last Admin: 04/20/22 05:56 Dose: 15 mg Sodium Bicarbonate (Sodium Bicarbonate 650 Mg Tablet) 650 mg PO TID [facility] Last Admin: 04/22/22 20:51 Dose: 650 mg Sodium Chloride (Saline Nasal [place] 44ml Btl) 1 spray NASAL PRN PRN PRN Reason: DRYNESS Last Admin: 04/21/22 09:15 Dose: 1 spray Vitals/I&O/Wt Last Vital Signs Temp 97.3 F L 04/22/22 20:00 Pulse 55 L 04/22/22 21:33 Resp 18 04/22/22 21:33 BP 160/61 04/22/22 20:00 Pulse Ox 93 04/22/22 21:33 O2 Del Method 04/22/22 21:33 O2 Flow Rate 1 04/22/22 07:56 04/22/22 04/22/22 04/22/22 06:59 14:59 22:59 Intake Total 230.633 / 1380.633 650 / 650 796.734 / 1446.734 Output Total 1450 / 1450 Balance -1219.367 / -69.367 650 / 650 796.734 / 1446.734 Physical Exam Narrative: GENERAL: The patient is alert and oriented times three. Not in any acute distress. Morbidly obese HEENT: No significant pallor, icterus or lymphadenopathy.Oral cavity: There are no mucous membrane lesions. NECK: Trachea appears to be central. No masses noted. No JVD or thyromegaly appreciated. RESPIRATORY: Chest is symmetrical. No intercostals muscle retraction or any accessory muscle activation. There is no chest wall tenderness. Breath sounds are heard bilaterally. No rales or rhonchi heard. No evidence of any consolidation. BREASTS: Deferred. HEART: The heart sounds are normal. No S3 or S4. Early diastolic murmur grade 2 or 6 in the second aortic area. No pericardial rub ABDOMEN: No vessel pulsations or distention. No tenderness. No organomegaly appreciated. Bowel sounds are normally heard. : Deferred. RECTAL: Deferred. LYMPHATIC: No lymphadenopathy noted in the neck. EXTREMITIES: No edema or cyanosis. No clubbing. MUSCULOSKELETAL: No acute joint deformities or swelling SKIN: There are no significant rashes or ecchymosis NEUROPSYCHIATRIC: The patient is alert and oriented x3. Appears to be in a good mood. No tremors or rigidity noted. Data : 04/22/22 02:38 04/22/22 02:38 Micro: Microbiology 04/21/22 22:30 Gram Stain - Final Sputum - Expectorated Sputum Sputum Culture - Preliminary 04/21/22 10:15 Urine Culture - Preliminary Urine,Clean Catch Gram Negative Rods Gram Negative Rods#2 CXR: Radiologist's impression: 1. Mild cardiac enlargement. No acute process noted. 2. Much less pulmonary vascular congestion than noted on the prior study. A&P Assessment and plan (1) AV heart block: The patient continues to have high degree AV block. She gets extremely short of breath and weak with movements. The oxygen saturation remains the same. Her oxygen saturation is 93% on room air. As she gets up and move around, the heart rate stays in the 50s and low 60s. The resting heart rate is on the 40s and low 50s. In view of the patient's ongoing high degree AV block/symptomatic bradycardia/for further management of her condition, a permanent pacemaker insertion will be appropriate. This was discussed with the patient and family in detail which she understood well and consented to proceed. We will be repeating all her labs in the morning including the urinalysis. If they are all acceptable, we may go ahead with the pacemaker insertion tomorrow (2) Elevated troponin: Possibly from the pulmonary embolism/heart block. Underlying coronary artery disease cannot be excluded. May require a Myocardial perfusion imaging sometime down the line, to better evaluate for coronary ischemia. (3) Aortic regurgitation: Patient seems to have moderately severe aortic regurgitation. This may need to be further evaluated with a MONICA. (4) Ovarian cancer: Patient undergoing chemotherapy. (5) Pulmonary embolism on right: Patient is on IV heparin. We may discontinue this prior to the procedure (6) Venous thromboembolism: Patient is on anticoagulation. Management as per the primary attending. (7) Acute diastolic heart failure: Her heart failure seems to be fairly treated at this point. I may hold off on the Lasix at this time. (8) UTI (urinary tract infection): We will have a repeat urinalysis in the morning. So far the patient has not had any fever or white cell count elevation. Plan Other problems are Stage II kidney disease Mild anemia After reviewing the lab results in the morning, further management decisions will be made. Attestations Medical Necessity Statement*: Patient requires continued hospital stay for close monitoring and further management Coding Level of Care Code Acute Hospital Receiving Clerk for [place] Fwd History Expanded Problem Focused Exam Detailed Medical Decision Making Moderate Complexity Diagnoses AV heart block I44.30 Elevated troponin R77.8 Aortic regurgitation I35.1 Ovarian cancer C56.9 Pulmonary embolism on right I26.99 Venous thromboembolism I82.90 Acute diastolic heart failure I50.31 UTI (urinary tract infection) N39.0
[2022-04-23] VITALS (15 sets, daily range): BP systolic 113–145; BP diastolic 42–93; PULSE 51–94; RESP 15–22; TEMP 36.4–36.9; O2SAT 91–96
[2022-04-23] MEDS: potassium chloride ER 20 mEq Tablet PO ×2 (03:05→17:44)
[2022-04-23] MEDS: ipratropium-albuterol 3 mL Neb INHALATION ×2 (03:23→08:11)
[2022-04-23 04:20] LABS: Bilirubin Urine Negative (Negative); Blood Urine Negative (Negative); Glucose Urine UA Negative (Normal); Ketones Urine Negative (Negative); Leukocyte Esterase Urine Trace; Nitrate Urine Negative; Protein Urine Negative (Negative); Specific Gravity, Urine 1.015 (1.005-1.030); Urine Appearance Clear (CLEAR); Urine Color Yellow (Yellow); pH Urine 5.5 (5-7)
[2022-04-23 04:48] LABS: Add Urine Microscopic? YES
[2022-04-23 04:49] LABS: RBC Urine 0-4 /hpf (0-2); Squamous Epithelial Cell Urine 0-4 /hpf (0-5)
[2022-04-23 04:50] LABS: Add Urine Culture? Yes; Amorphous Sediment Urine 1+ /hpf; Bacteria Urine 2+ /hpf; Fine Granular Casts Urine 0-4 /lpf; Hyaline Casts Urine 0-4 /lpf; WBC Urine 15-25 /hpf (0-5)
[2022-04-23 05:21] LABS: Basophils % 0.6 %; Eosinophils # 0.2 10^3/uL (0.0-0.8); Eosinophils % 2.2 %; Hematocrit 28.6 % (37.0-47.0); Hemoglobin 9.5 g/dL (11.5-15.3); Lymphocytes # 0.9 10^3/uL (0.8-4.8); Lymphocytes % 12.8 %; Mean Corpuscular HGB Conc 33.2 g/dL (30.0-36.0); Mean Corpuscular Hemoglobin 37.1 pg (28.0-34.0); Mean Corpuscular Volume 111.7 fl (81-99); Mean Platelet Volume 12.5 fL (7.4-10.4); Monocytes # 0.4 10^3/uL (0.2-0.9); Monocytes % 5.8 %; Neutrophils # 5.25 10^3/uL (1.8-7.7); Nucleated Red Blood Cells % 0 %; Platelet Count 188 10^3/cmm (130-400); Platelet Count 192 10^3/cmm (130-400); Red Blood Count 2.56 10^6/uL (4.1-5.3); Red Cell Distribution Width 16.2 % (12.1-15.1); White Blood Count 6.7 10^3/uL (4.0-10.0)
[2022-04-23 05:37] LABS: Partial Thromboplastin Time 41.1 SECONDS (23.9-36.7)
[2022-04-23 05:43] LABS: Blood Urea Nitrogen 26 mg/dL (8-23); Carbon Dioxide 18 mmol/L (22-29); Chloride 105 mmol/L (98-107); Glucose 140 mg/dL (65-115); Osmolality Calculated 289 mOsm/kg (285-295); Sodium 136 mmol/L (136-145)
[2022-04-23 05:47] LABS: Anion Gap 17.2 (5-19); Potassium 4.2 mmol/L (3.5-5.1)
--- NOTE | 2022-04-23 08:22 | P.PN_ITS ---
Subjective Subjective: The patient continues to have the shortness of breath/weakness with activities. Telemetry showed third-degree heart block. Heart rate continues to be in the upper 40s and low 50s. No fever, chills or cough. Had the labs and urinalysis today. Medications: Medication Review Details: Current Medications Acetaminophen (Acetaminophen 325 Mg Tablet) 650 mg PO Q6H PRN PRN Reason: Mild/Mod Pain Or Temp >/= 101 Last Admin: 04/22/22 19:40 Dose: 650 mg Albuterol/Ipratropium (Ipratropium-Albuterol 3 Ml Neb) 3 ml INHALATION Q6H PRN PRN Reason: SHORTNESS OF BREATH Last Admin: 04/21/22 01:19 Dose: 3 ml Albuterol/Ipratropium (Ipratropium-Albuterol 3 Ml Neb) 3 ml INHALATION Q6H.RESP [facility] Last Admin: 04/23/22 08:11 Dose: 3 ml Amlodipine Besylate (Amlodipine 10 Mg Tablet) 10 mg PO DAILY [facility] Last Admin: 04/22/22 08:05 Dose: 10 mg Atorvastatin Calcium (Atorvastatin 40 Mg Tablet) 40 mg PO DAILY [facility] Last Admin: 04/22/22 08:05 Dose: 40 mg Atropine Sulfate (Atropine 0.1 Mg/Ml Syr 10 Ml) 0.5 mg IVP Q5MIN PRN PRN Reason: HR<60, hypotention, pt symptomatic Benzonatate (Benzonatate 100 Mg Capsule) 200 mg PO Q6H PRN PRN Reason: COUGH Bupropion HCl (Bupropion Sr (12 Hr) 100 Mg Tablet) 200 mg PO DAILY [facility] Last Admin: 04/22/22 08:05 Dose: 200 mg Doxycycline Monohydrate (Doxycycline 100 Mg Tablet) 100 mg PO BID [facility]; Protocol Last Admin: 04/22/22 18:12 Dose: 100 mg Enoxaparin Sodium (Enoxaparin 120 Mg/0.8 Ml Syringe) 110 mg SUBCUT Q12H [facility] Last Admin: 04/21/22 05:42 Dose: 110 mg Escitalopram Oxalate (Escitalopram 10 Mg Tablet) 10 mg PO DAILY [facility] Last Admin: 04/22/22 08:06 Dose: 10 mg Guaifenesin (Guaifenesin 100 Mg/5 Ml Udc 10 Ml) 200 mg PO Q4H PRN PRN Reason: COUGH AND CONGESTION Heparin Sodium (Porcine) (Heparin 5,000 Unit/Ml Inj 1 Ml) 0 unit IV PRN PRN; Protocol PRN Reason: Heparin weight-base protocol Hydralazine HCl (Hydralazine 25 Mg Tablet) 25 mg PO TID [facility] Last Admin: 04/22/22 20:51 Dose: 25 mg Ceftriaxone Sodium 1,000 mg/ (Sodium Chloride) 50 mls @ 100 mls/hr IV Q24H [facility]; Protocol Last Infusion: 04/22/22 11:28 Dose: Infused Isosorbide Mononitrate (Isosorbide Mononitrate Er 30 Mg Tablet) 30 mg PO DAILY [facility] Last Admin: 04/22/22 08:05 Dose: 30 mg Lorazepam (Lorazepam 0.5 Mg Tablet) 0.5 mg PO BID PRN PRN Reason: Anxiety Last Admin: 04/21/22 01:28 Dose: 0.5 mg Non-Formulary Medication (Lynparza) 300 mg PO BID@0000,1200 [facility] Last Admin: 04/22/22 23:34 Dose: 300 mg Pantoprazole Sodium (Pantoprazole Dr 40 Mg Tablet) 40 mg PO DAILY [facility] Last Admin: 04/22/22 08:04 Dose: 40 mg Potassium Chloride (Potassium Chloride Er 20 Meq Tablet) 20 meq PO Q8H [facility] Last Admin: 04/23/22 03:05 Dose: 20 meq Rivaroxaban (Rivaroxaban 10 Mg Tablet) 15 mg PO Q12H [facility] Last Admin: 04/20/22 05:56 Dose: 15 mg Sodium Bicarbonate (Sodium Bicarbonate 650 Mg Tablet) 650 mg PO TID [facility] Last Admin: 04/22/22 20:51 Dose: 650 mg Sodium Chloride (Saline Nasal [place] 44ml Btl) 1 spray NASAL PRN PRN PRN Reason: DRYNESS Last Admin: 04/21/22 09:15 Dose: 1 spray Vitals/I&O/Wt Last Vital Signs Temp 98.3 F 04/23/22 07:32 Pulse 51 L 04/23/22 08:11 Resp 16 04/23/22 08:11 BP 137/42 04/23/22 07:32 Pulse Ox 96 04/23/22 08:11 O2 Del Method 04/23/22 08:11 O2 Flow Rate 1.5 04/23/22 08:11 04/22/22 04/23/22 04/23/22 22:59 06:59 14:59 Intake Total 796.734 / 1446.734 572.633 / 2018.367 Output Total 650 / 650 Balance 796.734 / 1446.734 -77.367 / 1369.367 Physical Exam Narrative: GENERAL: The patient is alert and oriented times three. Not in any acute distress. Morbidly obese HEENT: No significant pallor, icterus or lymphadenopathy.Oral cavity: There are no mucous membrane lesions. NECK: Trachea appears to be central. No masses noted. No JVD or thyromegaly appreciated. RESPIRATORY: Chest is symmetrical. No intercostals muscle retraction or any accessory muscle activation. There is no chest wall tenderness. Breath sounds are heard bilaterally. No rales or rhonchi heard. No evidence of any consolidation. BREASTS: Deferred. HEART: The heart sounds are normal. No S3 or S4. Early diastolic murmur grade 2 or 6 in the second aortic area. No pericardial rub ABDOMEN: No vessel pulsations or distention. No tenderness. No organomegaly appreciated. Bowel sounds are normally heard. : Deferred. RECTAL: Deferred. LYMPHATIC: No lymphadenopathy noted in the neck. EXTREMITIES: No edema or cyanosis. No clubbing. MUSCULOSKELETAL: No acute joint deformities or swelling SKIN: There are no significant rashes or ecchymosis NEUROPSYCHIATRIC: The patient is alert and oriented x3. Appears to be in a good mood. No tremors or rigidity noted. Data : 04/23/22 04:43 04/23/22 04:43 Other Labs: Laboratory Last Values WBC 6.7 10^3/uL (4.0-10.0) 04/23/22 04:43 RBC 2.56 10^6/uL (4.1-5.3) L 04/23/22 04:43 Hgb 9.5 g/dL (11.5-15.3) L 04/23/22 04:43 Hct 28.6 % (37.0-47.0) L 04/23/22 04:43 MCV 111.7 fl (81-99) H D 04/23/22 04:43 MCH 37.1 pg (28.0-34.0) H 04/23/22 04:43 MCHC 33.2 g/dL (30.0-36.0) D 04/23/22 04:43 RDW 16.2 % (12.1-15.1) H 04/23/22 04:43 Plt Count 188 10^3/cmm (130-400) 04/23/22 04:43 Plt Count 192 10^3/cmm (130-400) 04/23/22 04:43 MPV 12.5 fL (7.4-10.4) H 04/23/22 04:43 Neut % (Auto) 78.0 % 04/23/22 04:43 Lymph % (Auto) 12.8 % 04/23/22 04:43 [place] % (Auto) 5.8 % 04/23/22 04:43 Eos % (Auto) 2.2 % 04/23/22 04:43 Baso % (Auto) 0.6 % 04/23/22 04:43 Neut # (Auto) 5.25 10^3/uL (1.8-7.7) 04/23/22 04:43 Lymph # (Auto) 0.9 10^3/uL (0.8-4.8) 04/23/22 04:43 Stephens # (Auto) 0.4 10^3/uL (0.2-0.9) 04/23/22 04:43 Eos # (Auto) 0.2 10^3/uL (0.0-0.8) 04/23/22 04:43 Baso # (Auto) 0.0 10^3/uL (0.0-0.1) 04/23/22 04:43 Nucleated RBC % (auto) 0 % 04/23/22 04:43 Nucleated RBCs # 0.0 /100WBC 04/23/22 04:43 APTT 41.1 SECONDS (23.9-36.7) H 04/23/22 04:43 D-Dimer 2.32 ug/mIFEU (0-0.59) H 04/19/22 15:10 Sodium 136 mmol/L (136-145) 04/23/22 04:43 Potassium 4.2 mmol/L (3.5-5.1) 04/23/22 04:43 Chloride 105 mmol/L (98-107) 04/23/22 04:43 Carbon Dioxide 18 mmol/L (22-29) L 04/23/22 04:43 Anion Gap 17.2 (5-19) 04/23/22 04:43 BUN 26 mg/dL (8-23) H 04/23/22 04:43 Creatinine 1.6 mg/dL (0.5-0.9) H 04/23/22 04:43 GFR Calculation Not Reportable 04/23/22 04:43 Glucose 140 mg/dL (65-115) H 04/23/22 04:43 Calculated Osmolality 289 mOsm/kg (285-295) 04/23/22 04:43 Calcium 8.0 mg/dL (8.5-10.5) L 04/23/22 04:43 Magnesium 1.9 mg/dL (1.7-2.3) 04/20/22 05:08 Total Bilirubin 1.5 mg/dL (0.15-1.2) H 04/19/22 15:10 AST 15 U/L (0-32) 04/19/22 15:10 ALT 11 U/L (0-33) 04/19/22 15:10 Alkaline Phosphatase 101 U/L (35-105) 04/19/22 15:10 Troponin T Baseline 47 ng/L (0-10) H 04/19/22 22:28 Troponin T 120 Minute 51.18 ng/L (0-10) H 04/20/22 01:07 Delta Troponin T 4.18 ABS# (0-10) 04/20/22 01:07 Troponin T Hi Sens 6Hr 48.87 ng/L (0-10) H 04/20/22 05:08 Troponin T Hi Sens 6Hr Delta 1.87 ng/L (0-12) 04/20/22 05:08 NT-Pro-B Natriuret Pep 5819 pg/mL (0-125) H 04/19/22 15:10 Total Protein 6.2 g/dL (6.6-8.7) L 04/19/22 15:10 Albumin 3.6 g/dL (3.5-5.2) 04/19/22 15:10 Globulin 2.6 g/dL (1.3-4.6) 04/19/22 15:10 TSH 1.89 uIU/mL (0.27-4.20) 04/19/22 15:10 Urine Color Yellow (Yellow) 04/23/22 04:00 Urine Appearance Clear (CLEAR) 04/23/22 04:00 Urine pH 5.5 (5-7) 04/23/22 04:00 Ur Specific [place] 1.015 (1.005-1.030) 04/23/22 04:00 Urine Protein Negative (Negative) 04/23/22 04:00 Urine Glucose (UA) Negative (Normal) 04/23/22 04:00 Urine Ketones Negative (Negative) 04/23/22 04:00 Urine Blood Negative (Negative) 04/23/22 04:00 Urine Nitrate Negative 04/23/22 04:00 Urine Bilirubin Negative (Negative) 04/23/22 04:00 Urine Urobilinogen 1.0 mg/dL (Negative) 04/23/22 04:00 Ur Leukocyte Esterase Trace 04/23/22 04:00 Urine RBC 0-4 /hpf (0-2) H 04/23/22 04:00 Urine WBC 15-25 /hpf (0-5) H 04/23/22 04:00 Ur Squamous Epith Cells 0-4 /hpf (0-5) H 04/23/22 04:00 Amorphous Sediment 1+ /hpf 04/23/22 04:00 Urine Bacteria 2+ /hpf (NONE) H 04/23/22 04:00 Hyaline Casts 0-4 /lpf H 04/23/22 04:00 Fine Granular Casts 0-4 /lpf H 04/23/22 04:00 Coronavirus 229E (PCR) Not detected (NOT DETECT) 04/21/22 09:30 Human Metapneumovir PCR Not detected (NOT DETECT) 04/21/22 12:30 Entero/Rhino (PCR) Detected (NOT DETECT) A 04/21/22 12:30 SARS-CoV-2 (PCR) Not detected (NOT DETECT) 04/21/22 09:30 SARS-CoV-2 Ag (Rapid) Negative (Negative) 04/19/22 15:10 Micro: Microbiology 04/21/22 22:30 Gram Stain - Final Sputum - Expectorated Sputum Sputum Culture - Preliminary 04/21/22 10:15 Urine Culture - Preliminary Urine,Clean Catch Gram Negative Rods Gram Negative Rods#2 A&P Assessment and plan (1) AV heart block: The patient continues to have high degree AV block. She gets extremely short of breath and weak with movements. The oxygen saturation remains the same. Her oxygen saturation is 93% on room air. As she gets up and move around, the heart rate stays in the 50s and low 60s. The resting heart rate is on the 40s and low 50s. In view of the patient's ongoing high degree AV block/symptomatic bradycardia/for further management of her condition, a permanent pacemaker insertion will be appropriate. This was discussed with the patient and family in detail which she understood well and consented to proceed. The risk of bleeding, hematoma, vascular injury, pneumothorax, infection, renal failure and other concomitant complications were explained in detail. The patient and her Hello yeah I saw off on the patient back1. Mild cardiac enlargement. No acute process noted. 2. Much less pulmonary vascular congestion than noted on the prior study. Okay. Okay to start make sure premature atrial contractions if you think that is appropriate we will go ahead and do it. Thanks how much of extra weight will b ring family understood this well and consented to proceed. The urinalysis today shows significant improvement. Kidney function is stable. White cell count is in the normal range. (2) Elevated troponin: Possibly from the pulmonary embolism/heart block. Underlying coronary artery disease cannot be excluded. May require a Myocardial perfusion imaging sometime down the line, to better evaluate for coronary ischemia. (3) Aortic regurgitation: Patient seems to have moderately severe aortic regurgitation. This may need to be further evaluated with a MONICA. (4) Ovarian cancer: Patient undergoing chemotherapy. (5) Pulmonary embolism on right: Patient is on IV heparin. Currently the heparin is on hold (6) Venous thromboembolism: Patient is on anticoagulation. Management as per the primary attending. (7) Acute diastolic heart failure: Her heart failure seems to be fairly treated at this point. I may hold off on the Lasix at this time. (8) UTI (urinary tract infection): Patient remains afebrile. Repeat urinalysis revealed significant improvement. White cell count is within normal limits. Plan Other problems are Stage II kidney disease Mild anemia We will go ahead and plan for the permanent pacemaker around noon. We will continue on the current management for the time being. Attestations Medical Necessity Statement*: Patient requires continued hospital stay for close monitoring and further management Coding Level of Care Code Acute Certified Medicine Aide for Zara Fwd History Expanded Problem Focused Medical Decision Making Moderate Complexity Diagnoses AV heart block I44.30 Elevated troponin R77.8 Aortic regurgitation I35.1 Ovarian cancer C56.9 Pulmonary embolism on right I26.99 Venous thromboembolism I82.90 Acute diastolic heart failure I50.31 UTI (urinary tract infection) N39.0
[2022-04-23] MEDS: amlodipine 10 mg Tablet PO (09:59)
[2022-04-23] MEDS: isosorbide mononitrate ER 30 mg Tablet PO (09:59)
--- NOTE | 2022-04-23 10:13 | PM.PN ---
Subjective Subjective: Patient is in good spirits Currently on room air Significant provement of pyuria on UA Afebrile No significant leukocytosis Creatinine today is stable at 1.6 Contrast-induced JACQUELIN on chronic kidney disease? Vitals/I&O/Wt Last Vital Signs Temp 98.3 F 04/23/22 07:32 Pulse 51 L 04/23/22 08:11 Resp 16 04/23/22 08:11 BP 137/42 04/23/22 07:32 Pulse Ox 96 04/23/22 08:11 O2 Del Method 04/23/22 08:11 O2 Flow Rate 1.5 04/23/22 08:11 04/22/22 04/23/22 04/23/22 22:59 06:59 14:59 Intake Total 796.734 / 1446.734 572.633 / 2018. Output Total 650 / 650 Balance 796.734 / 1446.734 -77.367 / 1369.367 Physical Exam Narrative: Patient is awake and alert In good spirits No orthopnea PND Signs of fluid overload improving Hamm catheter draining dilute urine Abdomen soft S1, S2 variable Awake and alert Nonfocal neuro exam Pleasant and in good spirits Data : 04/23/22 04:43 04/23/22 04:43 Micro: Microbiology 04/21/22 22:30 Gram Stain - Final Sputum - Expectorated Sputum Sputum Culture - Preliminary 04/21/22 10:15 Urine Culture - Preliminary Urine,Clean Catch Gram Negative Rods Gram Negative Rods#2 A&P Assessment and plan (1) UTI (urinary tract infection): (2) Acute diastolic heart failure: (3) Chronic kidney disease: (4) Venous thromboembolism: (5) Aortic regurgitation: (6) AV heart block: (7) Elevated troponin: (8) NSTEMI (non-ST elevated myocardial infarction): (9) Pulmonary embolism on right: Plan Third-degree AV block: Plan for pacemaker placement today UTI: Continue ceftriaxone secondary pulmonary pyuria Urine culture showing gram-negative lenora Diastolic congestive heart failure patient fluid overloaded state is improving Acute hypoxia: Currently patient is on room air it was secondary to diastolic CHF exacerbation Acute PE she will get therapeutic anticoagulating agent after her pacemaker Heparin was discontinued last night Hypertension: Blood pressure seems to be better on amlodipine, hydralazine and Imdur Full code Anticipating discharge Wednesday Chronic kidney disease with metabolic acidosis continue bicarb, creatinine stable at 1.6 she did get contrast at the time of admission, kidney function is stable adequate urine output Patient can eat after her pacemaker placement today Attestations Medical Necessity Statement*: Continue medical management Time Spent in Patient Care: 40 Coding Level of Care Code Acute Auto Service Writer for Chg Fwd Diagnoses UTI (urinary tract infection) N39.0 Acute diastolic heart failure I50.31 Chronic kidney disease N18.9 Venous thromboembolism I82.90 Aortic regurgitation I35.1 AV heart block I44.30 Elevated troponin R77.8 NSTEMI (non-ST elevated myocardial infarction) I21.4 Pulmonary embolism on right I26.99
--- NOTE | 2022-04-23 12:19 | W.PM.OPSUD ---
Surgery/Procedure H&P Update DATE OF PROCEDURE: April 23, 2022 DATE H&P PERFORMED: 04/20/22 H&P UPDATE INFORMATION: I have reviewed H&P completed within last 30 days, I have examined patient prior to procedure and No changes to prior documentation PREOP DIAGNOSIS: 3rd depgree heart block PRIMARY INDICATION FOR PROCEDURE: symptomatic bradycardia PLANNED PROCEDURE: TVPPM dual chamber PATIENT REASSESSED PRIOR TO SEDATION, WITH NO CHANGE NOTED: Yes PHYSICAL EXAM: alert, oriented x 3, clear to auscultation bilaterally and regular rate & rhythm AIRWAY EVAL/ANESTHESIA PLAN: normal airway, see other exam findings, ASA III, Monitored Anesthesia, Local Anesthesia, Risks, benefits & alternatives of sedation and/or procedure discussed and Patient agrees to continue as planned
[2022-04-23] MEDS: cefTRIAXone 1,000 MG in sodium chloride 0.9% (plus) 50 ML 100 MG IV (12:31)
[2022-04-23] MEDS: hyDRALAzine 25 mg Tablet PO ×2 (15:43→19:56)
[2022-04-23] MEDS: sodium bicarbonate 650 mg Tablet PO ×2 (15:43→19:55)
[2022-04-23] MEDS: doxycycline 100 mg Tablet PO (17:44)
--- NOTE | 2022-04-23 17:55 | P.OP_ITS ---
Operative Report Date of procedure: April 23, 2022 Pre-op diagnosis: Preop Diagnosis 3rd depgree heart block Procedure: LOCATION: Inpatient PREOPERATIVE DIAGNOSES: Third-degree heart block. POSTOPERATIVE DIAGNOSES: Same. COMPLICATIONS: Normal. ESTIMATED BLOOD LOSS: Around 5 milliliters. BRIEF HISTORY: This is a 72-year-old white female with a history of hypertension, dyslipidemia, is admitted to the hospital with shortness of breath and dizziness. She was found to have evidence of DVT and pulmonary embolism. She also was found to be in high degree AV block with a heart rate in the upper 40s and low 50s. She also had evidence of for diastolic heart failure moderately severe aortic regurgitation by echocardiogram. She was treated with IV diuretics and anticoagulation. Her resting shortness of breath improved. However she continued to be symptomatic with a very minimal activities without oxygen desaturation. For further management of her condition, a permanent pacemaker insertion was recommended. A dual chamber permanent pacemaker implantation was recommended for AV synchrony and symptom relief. The procedure was explained to the patient in detail with the risks and benefits. The risks of bleeding, hematoma, vascular injury, infection, pneumothorax, myocardial perforation and other concomitant complications were explained in detail, which the patient understood well and consented to proceed. PROCEDURE DESCRIPTION: The patient was brought to the Cardiac Catheterization Lab. The left and the right side of the neck and the subclavian area were cleaned and draped in a sterile fashion. 1% Xylocaine was used as the local anesthetic agent. Left subclavian venogram was performed by injecting 20 milliliters of Omnipaque through the left antecubital vein. A left subclavian venous access was obtained using a micropuncture needle system, under venographic guidance. . A two-inch long incision was made 2.0 centimeters below the midclavicular region. By sharp and blunt dissection, a pacemaker pocket was made. A second venous access was obtained using another micropuncture needle system. Over the first guidewire, a 7-Argentine venous sheath with dilator was advanced. The venous dilator and the guidewire were taken out. A screw-in ventricular lead was advanced through the venous sheath and was positioned towards the right ventricle. Under fluoroscopic guidance, the ventricular lead was positioned toward the right ventricular apex. Good pacing and sensing thresholds were obtained. The lead was secured to the endocardium by advancing the helix. The stability of the lead was tested by gentle twisting movements and also by asking the patient to take some deep breaths and cough. The venous sheath was peeled off, at this time. The lead was secured to the pectoralis fascia, by suturing with 1-0 Surgilon. Over the second guidewire, another 7- Argentine venous sheath with dilator was advanced. The dilator and the guidewire were taken out. Under fluoroscopic guidance, an atrial lead (Medtronic), was advanced and positioned toward the right atrium. The lead was positioned in the right atrial appendage. Good pacing and sensing thresholds were obtained. The lead was secured to the endocardium by advancing the helix. Stability of the lead was tested by gentle twisting movements and also by asking the patient to take some deep breaths and cough. The venous sheath was peeled off, at this time. The lead was secured to the pectoralis fascia by suturing with 0-Surgilon. The pacemaker pocket was copiously irrigated with vancomycin solution. Complete hemostasis was achieved. Sponge counts were confirmed. The leads were attached to a Medtronic generator. The leads were positioned behind the generator and the generator was inserted and antibiotic mesh TYRX and was attached to the pectoralis fascia by suturing with 0-Surgilon. The pocket was closed in layers. Skin was approximated using 4-0 Vicryl. IMPLANTED DEVICES: ATRIAL LEAD: Model number: 5076/52 Serial number: [id number] Make: Medtronic VENTRICULAR LEAD: Model number: 5076/58 Serial number: [id number] Make: Medtronic GENERATOR Brand: Kierra ShettyNhwinnie Model number: [id number] Serial number: [id number] Make: Medtronic IMPLANTATION DATA: With the pacing system analyzer, the R wave sensing was 10.3 millivolts with a lead impedance of 585 and a pacing threshold was 0.5 volts at 0.4 milliseconds. In the atrium, the sensing was 3.6 millivolts with a lead impedance of 440 ohms and a pacing threshold was 0.6 volts at 0.4 milliseconds. Through the device, the R-wave sensing was not obtained because of the dependency with a lead impedance of 494 and a pacing threshold was 0.75 volts at 0.4 milliseconds. The atrial sensing was 4.0 millivolts with a lead impedance of 342 ohms and a pacing threshold of 0.5 volts at 0.4 milliseconds. The pacemaker was set for DDD mode with upper rate of 130 and a lower rate of 60. TYRX REF [id number] [email or web address] A pressure dressing was applied over the pacemaker site. The patient was trans ferred to the Medical Floor in stable condition. A chest x-ray was ordered to confirm the lead position and also to rule out any pneumothorax.
[2022-04-23] MEDS: ceFAZolin 2,000 MG in sodium chloride 0.9% (plus) 50 ML 100 MG IV (19:55)
--- NOTE | 2022-04-23 19:58 | XRR_ITS ---
PROCEDURE INFORMATION: Exam: XR Chest Exam date and time: 04/23/2022 8:06 PM Age: 72 years old Clinical indication: Cough and shortness of breath; Prior surgery; Surgery type: Pacemaker; Additional info: Post pace maker, keep all the leads and patches out of the fov TECHNIQUE: Imaging protocol: Radiologic exam of the chest. Views: 1 view. COMPARISON: CR XR chest 1V portable [id number] 04/22/2022 4:24 AM FINDINGS: Tubes, catheters and devices: There is new pacemaker in place with leads in the projection of the right ventricle and right atrium. Infusion port catheter is in place with its tip in the superior vena cava. Lungs: No focal consolidation is identified. Pleural spaces: There are small bilateral pleural effusions. Heart/Mediastinum: Heart is mildly enlarged. Bones/joints: Unremarkable. XR/XR chest 1V portable [id number] IMPRESSION: 1. No pneumothorax following pacemaker placement. 2. Other findings not significant changed compared with 04/22/2022.
--- NOTE | 2022-04-23 21:51 | PC.NURSE ---
Bedside report completed with MARCOS Oneil.
[2022-04-23] MEDS: LORazepam 0.5 mg Tablet PO (23:47)
[2022-04-24] VITALS (12 sets, daily range): BP systolic 130–146; BP diastolic 61–68; PULSE 67–95; RESP 16–19; TEMP 36.4–36.9; O2SAT 91–96
[2022-04-24] MEDS: potassium chloride ER 20 mEq Tablet PO (03:01)
[2022-04-24] MEDS: ceFAZolin 2,000 MG in sodium chloride 0.9% (plus) 50 ML 100 MG IV ×2 (03:02→12:47)
[2022-04-24 03:52] LABS: Basophils % 0.6 %; Eosinophils # 0.2 10^3/uL (0.0-0.8); Hematocrit 26.9 % (37.0-47.0); Hemoglobin 8.8 g/dL (11.5-15.3); Lymphocytes # 0.9 10^3/uL (0.8-4.8); Lymphocytes % 18.3 %; Mean Corpuscular HGB Conc 32.7 g/dL (30.0-36.0); Mean Corpuscular Hemoglobin 36.7 pg (28.0-34.0); Mean Corpuscular Volume 112.1 fl (81-99); Mean Platelet Volume 12.1 fL (7.4-10.4); Monocytes # 0.3 10^3/uL (0.2-0.9); Monocytes % 5.8 %; Neutrophils # 3.34 10^3/uL (1.8-7.7); Neutrophils % 69.7 %; Nucleated Red Blood Cells % 0 %; Platelet Count 189 10^3/cmm (130-400); Red Cell Distribution Width 16.2 % (12.1-15.1); White Blood Count 4.8 10^3/uL (4.0-10.0)
[2022-04-24 04:17] LABS: Blood Urea Nitrogen 30 mg/dL (8-23); Calcium 7.9 mg/dL (8.5-10.5); Carbon Dioxide 20 mmol/L (22-29); Chloride 104 mmol/L (98-107); Glucose 118 mg/dL (65-115); Osmolality Calculated 287 mOsm/kg (285-295); Sodium 135 mmol/L (136-145)
--- NOTE | 2022-04-24 06:41 | ECG_ITS ---
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 Measurements Intervals [place] Rate: 79 P: -29 MA: 194 QRS: 269 QRSD: 191 T: 82 QT: 476 QTc: 547 Interpretive Statements ELECTRONIC VENTRICULAR PACEMAKER ABNORMAL RHYTHM ECG Compared to ECG 04/21/2022 08:51:47 Sinus bradycardia no longer present Left-axis deviation no longer present Myocardial infarct finding no longer present Electronically Signed On 04-24-2022 19:11:37 CDT by Jazmin Richey M.D. [id number]
[2022-04-24] MEDS: ipratropium-albuterol 3 mL Neb INHALATION ×2 (08:31→20:11)
--- NOTE | 2022-04-24 08:40 | PC.SOCIAL ---
IMM update IMM updated at bedside with patient. Copy of page 2 provided. Patient verbalized understanding. Copy in chart initialed, dated and timed.
[2022-04-24] MEDS: amlodipine 10 mg Tablet PO (09:00)
[2022-04-24] MEDS: atorvastatin 40 mg Tablet PO (09:00)
[2022-04-24] MEDS: doxycycline 100 mg Tablet PO ×2 (09:00→17:11)
[2022-04-24] MEDS: sodium bicarbonate 650 mg Tablet PO (09:00)
[2022-04-24] MEDS: isosorbide mononitrate ER 30 mg Tablet PO (09:00)
[2022-04-24] MEDS: buPROPion SR (12 HR) 100 mg Tablet 200 MG PO (09:00)
[2022-04-24] MEDS: hyDRALAzine 25 mg Tablet PO ×3 (09:01→21:58)
[2022-04-24] MEDS: escitalopram 10 mg Tablet PO (09:01)
[2022-04-24] MEDS: pantoprazole DR 40 mg Tablet PO (09:01)
--- NOTE | 2022-04-24 10:00 | PM.PN ---
Subjective Subjective: Creatinine today 1.4 Patient is endorsing feeling better Her arm is in a sling Enjoying her breakfast On room air No active complaints Vitals/I&O/Wt Last Vital Signs Temp 97.6 F 04/24/22 08:00 Pulse 88 04/24/22 08:38 Resp 16 04/24/22 08:30 BP 138/68 04/24/22 08:00 Pulse Ox 93 04/24/22 08:34 O2 Del Method 04/24/22 08:34 O2 Flow Rate 3 04/24/22 08:34 04/23/22 04/24/22 04/24/22 22:59 06:59 14:59 Intake Total 850 / 900 50 / 950 Output Total 825 / 825 Balance 850 / 900 -775 / 125 Weight last 48 hrs Weight 119.38 kg Physical Exam Narrative: Awake and alert Lt Arm in a sling Looks less fluid overloaded Extremity mild edema Mild crackles noted on lung auscultation Currently on room air Awake and alert Nonfocal neuro exam S1, S2 Urinary Catheter Management: Hamm: Cath Placed During This Visit: no Reason for Continuing Indwelling Catheter: Accurate Measurement of Urinary Output in Critically Ill Patients Data : 04/24/22 03:01 04/24/22 03:01 Micro: Microbiology 04/23/22 04:00 Urine Culture - Preliminary Urine,Clean Catch 04/21/22 10:15 Urine Culture - Final Urine,Clean Catch Escherichia coli Escherichia coli#2 04/21/22 22:30 Gram Stain - Final Sputum - Expectorated Sputum Sputum Culture - Final A&P Assessment and plan (1) UTI (urinary tract infection): (2) Acute diastolic heart failure: (3) Venous thromboembolism: (4) Chronic kidney disease: (5) Aortic regurgitation: (6) AV heart block: (7) Elevated troponin: (8) NSTEMI (non-ST elevated myocardial infarction): (9) Pulmonary embolism on right: (10) Ovarian cancer: Plan UTI with gram-negative lenora switched to levofloxacin Third-degree AV block status post pacemaker placement 04/23 we will give her doxycycline empirical coverage Diastolic congestive heart failure improved, cut back on diuretics Remove Hamm catheter tomorrow Full code Acute PE and DVT start therapeutic Lovenox 1 PM Discharge tomorrow Attestations Medical Necessity Statement*: Discharge tomorrow Time Spent in Patient Care: 40 Coding Level of Care Code Acute Superintendent Operating for Chg Fwd Diagnoses UTI (urinary tract infection) N39.0 Acute diastolic heart failure I50.31 Venous thromboembolism I82.90 Chronic kidney disease N18.9 Aortic regurgitation I35.1 AV heart block I44.30 Elevated troponin R77.8 NSTEMI (non-ST elevated myocardial infarction) I21.4 Pulmonary embolism on right I26.99 Ovarian cancer C56.9
--- NOTE | 2022-04-24 10:33 | P.PN_ITS ---
Subjective Subjective: Patient The permanent pacemaker insertion yesterday. She seems to be feeling good. No hematoma or bleeding at the pacemaker insertion site. No fever or chills. Medications: Medication Review Details: Current Medications Acetaminophen (Acetaminophen 325 Mg Tablet) 650 mg PO Q6H PRN PRN Reason: Mild/Mod Pain Or Temp >/= 101 Last Admin: 04/22/22 19:40 Dose: 650 mg Albuterol/Ipratropium (Ipratropium-Albuterol 3 Ml Neb) 3 ml INHALATION Q6H PRN PRN Reason: SHORTNESS OF BREATH Last Admin: 04/21/22 01:19 Dose: 3 ml Albuterol/Ipratropium (Ipratropium-Albuterol 3 Ml Neb) 3 ml INHALATION Q6H.RESP [facility] Last Admin: 04/24/22 08:31 Dose: 3 ml Amlodipine Besylate (Amlodipine 10 Mg Tablet) 10 mg PO DAILY [facility] Last Admin: 04/24/22 09:00 Dose: 10 mg Atorvastatin Calcium (Atorvastatin 40 Mg Tablet) 40 mg PO DAILY [facility] Last Admin: 04/24/22 09:00 Dose: 40 mg Atropine Sulfate (Atropine 0.1 Mg/Ml Syr 10 Ml) 0.5 mg IVP Q5MIN PRN PRN Reason: HR<60, hypotention, pt symptomatic Benzonatate (Benzonatate 100 Mg Capsule) 200 mg PO Q6H PRN PRN Reason: COUGH Bupropion HCl (Bupropion Sr (12 Hr) 100 Mg Tablet) 200 mg PO DAILY [facility] Last Admin: 04/24/22 09:00 Dose: 200 mg Doxycycline Monohydrate (Doxycycline 100 Mg Tablet) 100 mg PO BID [facility]; Protocol Last Admin: 04/24/22 09:00 Dose: 100 mg Enoxaparin Sodium (Enoxaparin 120 Mg/0.8 Ml Syringe) 110 mg SUBCUT Q12H [facility] Last Admin: 04/21/22 05:42 Dose: 110 mg Escitalopram Oxalate (Escitalopram 10 Mg Tablet) 10 mg PO DAILY [facility] Last Admin: 04/24/22 09:01 Dose: 10 mg Furosemide (Furosemide 40 Mg Tablet) 40 mg PO DAILY@0800 [facility] Guaifenesin (Guaifenesin 100 Mg/5 Ml Udc 10 Ml) 200 mg PO Q4H PRN PRN Reason: COUGH AND CONGESTION Heparin Sodium (Porcine) (Heparin 5,000 Unit/Ml Inj 1 Ml) 0 unit IV PRN PRN; Protocol PRN Reason: Heparin weight-base protocol Hydralazine HCl (Hydralazine 25 Mg Tablet) 25 mg PO TID [facility] Last Admin: 04/24/22 09:01 Dose: 25 mg Cefazolin Sodium 2,000 mg/ (Sodium Chloride) 50 mls @ 100 mls/hr IV Q8H [facility]; Protocol Stop: 04/24/22 12:29 Last Infusion: 04/24/22 03:44 Dose: Infused Isosorbide Mononitrate (Isosorbide Mononitrate Er 30 Mg Tablet) 30 mg PO DAILY [facility] Last Admin: 04/24/22 09:00 Dose: 30 mg Levofloxacin (Levofloxacin 750 Mg Tablet) 750 mg PO DAILY@0600 [facility]; Protocol Lorazepam (Lorazepam 0.5 Mg Tablet) 0.5 mg PO BID PRN PRN Reason: ANXIETY Last Admin: 04/23/22 23:47 Dose: 0.5 mg Morphine Sulfate (Morphine 10 Mg/0.5 Ml Oral Liq Ud) 10 mg PO Q4H PRN PRN Reason: PAIN Non-Formulary Medication (Lynparza) 300 mg PO BID@0000,1200 [facility] Last Admin: 04/23/22 23:47 Dose: 300 mg Pantoprazole Sodium (Pantoprazole Dr 40 Mg Tablet) 40 mg PO DAILY [facility] Last Admin: 04/24/22 09:01 Dose: 40 mg Rivaroxaban (Rivaroxaban 10 Mg Tablet) 15 mg PO Q12H [facility] Last Admin: 04/20/22 05:56 Dose: 15 mg Sodium Chloride (Saline Nasal Theodore 44ml Btl) 1 spray NASAL PRN PRN PRN Reason: DRYNESS Last Admin: 04/21/22 09:15 Dose: 1 spray Vitals/I&O/Wt Last Vital Signs Temp 97.6 F 04/24/22 08:00 Pulse 88 04/24/22 08:38 Resp 16 04/24/22 08:30 BP 138/68 04/24/22 08:00 Pulse Ox 93 04/24/22 08:34 O2 Del Method 04/24/22 08:34 O2 Flow Rate 3 04/24/22 08:34 04/23/22 04/24/22 04/24/22 22:59 06:59 14:59 Intake Total 850 / 900 50 / 950 Output Total 825 / 825 Balance 850 / 900 -775 / 125 Weight last 48 hrs Weight 263 lb 3 oz Physical Exam Narrative: GENERAL: The patient is alert and oriented times three. Not in any acute distress. Morbidly obese HEENT: Minimal pallor. No icterus or lymphadenopathy.Oral cavity: There are no mucous membrane lesions. NECK: Trachea appears to be central. No masses noted. No JVD or thyromegaly appreciated. RESPIRATORY: Chest is symmetrical. No intercostals muscle retraction or any accessory muscle activation. There is no chest wall tenderness. Breath sounds are heard bilaterally. No rales or rhonchi heard. No evidence of any consolidation. The pacemaker site has no hematoma or bleeding. BREASTS: Deferred. HEART: The heart sounds are normal. No S3 or S4. Early diastolic murmur grade 2 or 6 in the second aortic area. No pericardial rub ABDOMEN: No vessel pulsations or distention. No tenderness. No organomegaly appreciated. Bowel sounds are normally heard. : Deferred. RECTAL: Deferred. LYMPHATIC: No lymphadenopathy noted in the neck. EXTREMITIES: No edema or cyanosis. No clubbing. MUSCULOSKELETAL: No acute joint deformities or swelling SKIN: There are no significant rashes or ecchymosis NEUROPSYCHIATRIC: The patient is alert and oriented x3. Appears to be in a good mood. No tremors or rigidity noted. Urinary Catheter Management: Hamm: Cath Placed During This Visit: no Reason for Continuing Indwelling Catheter: Accurate Measurement of Urinary Output in Critically Ill Patients Data : 04/24/22 03:01 04/24/22 03:01 Micro: Microbiology 04/23/22 04:00 Urine Culture - Preliminary Urine,Clean Catch 04/21/22 10:15 Urine Culture - Final Urine,Clean Catch Escherichia coli Escherichia coli#2 04/21/22 22:30 Gram Stain - Final Sputum - Expectorated Sputum Sputum Culture - Final A&P Assessment and plan (1) Presence of permanent cardiac pacemaker: Patient had a permanent pacemaker implantation yesterday. Seems to be functioning okay on diltiazem. We will have the device interrogation today (2) Elevated troponin: Possibly from the pulmonary embolism/heart block. Underlying coronary artery disease cannot be excluded. May require a Myocardial perfusion imaging sometime down the line, to better evaluate for coronary ischemia. (3) Aortic regurgitation: Patient seems to have moderately severe aortic regurgitation. This may need to be further evaluated with a MONICA. (4) Ovarian cancer: Patient undergoing chemotherapy. (5) Pulmonary embolism on right: The oral anticoagulation to be started at this afternoon. (6) Venous thromboembolism: As mentioned above. (7) Acute diastolic heart failure: Her heart failure seems to be fairly treated at this point. (8) UTI (urinary tract infection): Patient remains afebrile. The antibiotic management as per Dr. Mann Plan Other problems are Stage II kidney disease Anemia, seems to be getting worse-need to look for source of bleeding? Attestations Medical Necessity Statement*: This position as per the primary Coding Level of Care Code Acute Radiation Protection Engineer for Chg Fwd History Expanded Problem Focused Exam Detailed Medical Decision Making Moderate Complexity Diagnoses Presence of permanent cardiac pacemaker Z95.0 Elevated troponin R77.8 Aortic regurgitation I35.1 Ovarian cancer C56.9 Pulmonary embolism on right I26.99 Venous thromboembolism I82.90 Acute diastolic heart failure I50.31 UTI (urinary tract infection) N39.0
--- NOTE | 2022-04-24 11:46 | PC.CHAP ---
Pastoral Care Encounter/Spiritual Assessment Type of Contact [] Declined tree cutter visit [] Patient/Family/Request visit [] Outpatient visit [] Follow-up visit [] Physician referral [] Code/Alert [x] Routine visit [] Staff referral [] Actively dying [] Patient sleeping [] Family support [] [] Out of room [] Palliative care [] [] Receiving care in room [] Pre-surgical visit [] Trauma [] Long length of stay [] ICU visit [] Other: Relational/Emotional Strength [x] Patient feels connected with others/family/visitors/staff [] Distress [] Loneliness/isolation [] Abandonment Spirituality of Patient [x] Person of Jane [x] Attends Samaritan of their Jane [x] Believes in Prayer [] Reads Bible or Sabianist materials [] There are Spiritual issues to be addressed Clear Coat Sprayer Interventions []x Prayer [] Active listening [] Non-anxious presence [] Spiritual/emotional support [] Crisis/trauma care [] Spiritual counseling [] Bereavement support [] Provided bereavement packet [] Provided Bible/devotional materials [] Provided toy/stuffed animal, coloring book to patient or family member [] Provided Communion [] Anointing/Dante [] Salvation [x] Completed spiritual assessment [] Other: Impact on Illness or Injury [] Angry [] Fearful [] Anxious [] Often cries [] Exhaustion [] Unable to work [] Unable to attend shinto [] Unable to walk/stand [] Unable to read [] Unable to drive [] Unable to eat/drink [] Unable to sleep [] Unable to be with family [] Patient intubated [] Other: Summary Time spent with patient 10 min
[2022-04-24 12:54] LABS: Hematocrit 28.3 % (37.0-47.0); Hemoglobin 9.2 g/dL (11.5-15.3)
[2022-04-24] MEDS: enoxaparin 120 mg/0.8 mL Syringe 110 MG SUBCUT (17:11)
[2022-04-25 00:49] VITALS: BP 134/63; PULSE 92; RESP 15; TEMP 37.1; O2SAT 95
[2022-04-25 05:15] VITALS: BP 134/65; PULSE 88; RESP 20; TEMP 36.7; O2SAT 91
[2022-04-25] MEDS: enoxaparin 120 mg/0.8 mL Syringe 110 MG SUBCUT (05:35)
[2022-04-25] MEDS: levoFLOXacin 750 mg Tablet PO (05:35)
[2022-04-25 05:45] LABS: Platelet Count 189 10^3/cmm (130-400)
[2022-04-25 06:00] VITALS: PULSE 60
[2022-04-25 06:09] LABS: Blood Urea Nitrogen 30 mg/dL (8-23); Calcium 8.6 mg/dL (8.5-10.5); Carbon Dioxide 21 mmol/L (22-29); Chloride 106 mmol/L (98-107); Glucose 111 mg/dL (65-115); Osmolality Calculated 289 mOsm/kg (285-295); Sodium 136 mmol/L (136-145)
[2022-04-25 07:38] VITALS: BP 135/66; PULSE 89; RESP 16; O2SAT 91
[2022-04-25 07:59] VITALS: PULSE 89; RESP 16; O2SAT 92
[2022-04-25] MEDS: ipratropium-albuterol 3 mL Neb INHALATION (07:59)
[2022-04-25] MEDS: atorvastatin 40 mg Tablet PO (08:17)
[2022-04-25] MEDS: isosorbide mononitrate ER 30 mg Tablet PO (08:18)
[2022-04-25] MEDS: pantoprazole DR 40 mg Tablet PO (08:18)
[2022-04-25] MEDS: FUROsemide 40 mg Tablet PO (08:18)
[2022-04-25] MEDS: hyDRALAzine 25 mg Tablet PO (08:18)
[2022-04-25] MEDS: escitalopram 10 mg Tablet PO (08:19)
[2022-04-25] MEDS: amlodipine 10 mg Tablet PO (08:19)
[2022-04-25] MEDS: buPROPion SR (12 HR) 100 mg Tablet 200 MG PO (08:19)
[2022-04-25] MEDS: doxycycline 100 mg Tablet PO (08:19)
--- NOTE | 2022-04-25 08:32 | P.PN_ITS ---
Subjective Subjective: Patient is stable. No issues with pacemaker Vitals/I&O/Wt Last Vital Signs Temp 98.1 F 04/25/22 05:15 Pulse 89 04/25/22 07:59 Resp 16 04/25/22 07:59 BP 135/66 04/25/22 07:38 Pulse Ox 92 04/25/22 07:59 O2 Del Method 04/25/22 07:59 O2 Flow Rate 3 04/24/22 20:00 04/24/22 04/25/22 04/25/22 22:59 06:59 14:59 Intake Total 240 / 290 240 / 530 Output Total 980 / 980 Balance 240 / 290 -740 / -450 Weight last 48 hrs Weight 263 lb 3 oz Physical Exam Narrative: GENERAL: Patient is alert, awake and oriented x3. [] NECK: No jugular vein distension. [] HEENT: No cyanosis. No icterus. No pallor. [] HEART: Regular S1 and S2. No murmur, rub or gallop. [] LUNGS: Clear to auscultate bilaterally. [] ABDOMEN: Soft, nontender and nondistended. Positive bowel sounds. No guarding, rebound or tenderness. [] CENTRAL NERVOUS SYSTEM: Grossly nonfocal. [] EXTREMITIES: Lower extremities with 1+ edema bilaterally. Pulses palpable in the lower extremities, both dorsalis pedis and posterior tibial. [] Urinary Catheter Management: Hamm: Cath Placed During This Visit: no Reason for Continuing Indwelling Catheter: Acute Urinary Retention or Obstruction Data : 04/25/22 05:20 04/25/22 05:20 Micro: Microbiology 04/23/22 04:00 Urine Culture - Final Urine,Clean Catch A&P Assessment and plan (1) Presence of permanent cardiac pacemaker: Appropriately functioning pacemaker (2) Elevated troponin: May need outpatient stress test per plan from primary cardiology (3) Aortic regurgitation: In future may need a MONICA to better assess (4) Ovarian cancer: Patient undergoing chemotherapy. (5) Pulmonary embolism on right: Anticoagulation (6) Venous thromboembolism: As mentioned above. (7) Acute diastolic heart failure: Compensated (8) UTI (urinary tract infection): Patient remains afebrile. The antibiotic management as per primary tea\m Attestations Medical Necessity Statement*: Care expected to cross 2 midnights. Coding Level of Care Code Acute Communication Signals Intelligence for g Fwd Diagnoses Presence of permanent cardiac pacemaker Z95.0 Elevated troponin R77.8 Aortic regurgitation I35.1 Ovarian cancer C56.9 Pulmonary embolism on right I26.99 Venous thromboembolism I82.90 Acute diastolic heart failure I50.31 UTI (urinary tract infection) N39.0
--- NOTE | 2022-04-25 10:11 | P.DS_ITS ---
Discharge Providers Date of Admission: 04/21/22 10:53 Date of Discharge: April 25, 2022 Attending Provider at Admission: Tha Buckley MD Attending Provider at Discharge: Ericka Mann MD Primary Care Provider: CINDI Dejesus Diagnoses at Discharge Discharge Diagnosis (1) Presence of permanent cardiac pacemaker: Status: Acute (2) Elevated troponin: Status: Acute (3) Aortic regurgitation: Status: Acute (4) Ovarian cancer: Status: Acute (5) Pulmonary embolism on right: Status: Acute (6) Venous thromboembolism: Status: Acute (7) Acute diastolic heart failure: Status: Acute (8) UTI (urinary tract infection): Status: Acute Reason for Visit Reason for Visit: coughing, sob, chest pains Hospital Course Hospital Course 72-year-old female with history of cancer presented with shortness of breath. She was diagnosed with acute PE and a DVT, she was also suffering from diastolic congestive heart failure and required high dose of diuresis, with adequate diuresis we were able to wean her oxygen down from 2 L to room air, she was diagnosed with UTI as well and required antibiotics. She was diagnosed with third-degree AV block, Dr. Richey was consulted who put a pacemaker 04/23. She will get doxycycline for MRSA empirical coverage for her pacemaker wound, for her UTI she will get levofloxacin 5-day regimen. I have asked her to take Lasix 20 mg every other day with potassium 10 mill equivalent. She remained hypertensive throughout her hospitalization, lisinopril discontinued, she has history of chronic kidney disease, creatinine improved with diuresis, I have increased the dose of amlodipine to 10 mg and gave her hydralazine 25 mg 3 times daily regimen. For her PE considering underlying cancer history she will get Lovenox twice a day 120 mg regimen unless this is changed by her oncologist in [place]. Echo showed preserved ejection fraction. She remained afebrile no leukocytosis. Urine culture showed E. coli. Physical Exam Narrative: Awake and alert Lt Arm in a sling Looks euvolemic Pleasant and cooperative Currently on room air Awake and alert Nonfocal neuro exam S1, S2 Urinary Catheter Management: Hamm: Cath Placed During This Visit: no Reason for Continuing Indwelling Catheter: Acute Urinary Retention or Obstruction Discharge Data Studies Completed and Pending Completed Studies During Hospitalization Category Date Time Status CT angio chest PE protcl [id number] Stat Cat Scan 04/19/22 16:02 Completed GERMAN PROFESSOR request for service Routine Exams 04/23/22 07:59 Completed CXRP [XR chest 1V portable [id number]] Routine Exams 04/23/22 19:58 Completed CXRP [XR chest 1V portable [id number]] Stat Exams 04/21/22 08:38 Completed XR chest 1V portable [id number] Routine Exams 04/22/22 05:00 Completed XR chest 1V portable [id number] Stat Exams 04/19/22 14:49 [place] [id number] Routine Ultrasound 04/19/22 19:30 Completed CV. echo complete* [id number] Routine Ultrasound 04/19/22 19:30 Completed Pending at discharge Category Date Time Status Occult Blood Stool [Immunochemical Fecal OCB] Routine Lab 04/24/22 10:39 Uncollected Radiology Impressions Chest CTA 04/19/22 16:02 IMPRESSION: 1. Large pulmonary embolism right lower lobe pulmonary artery . 2. Negative for right heart strain. 3. Scattered interstitial densities in both lungs as described 4. Unremarkable thoracic aorta 5. Pleural thickening posterior aspect of the bilateral lower lobes. ADDENDUM: 04/19/22 1708 Findings were discussed with NEEMA SANDHU at 04/19/2022 5:07 PM CDT. Venous Duplex 04/19/22 19:30 IMPRESSION: 1. Occlusive thrombus within the superficial right small saphenous vein which extends into the peroneal trunk within the calf. 2. No DVT in the left leg. Chest X-Ray 04/23/22 19:58 IMPRESSION: 1. No pneumothorax following pacemaker placement. 2. Other findings not significant changed compared with 04/22/2022. Laboratory Results WBC 4.8 10^3/uL (4.0-10.0) 04/24/22 03:01 RBC 2.40 10^6/uL (4.1-5.3) L 04/24/22 03:01 Hgb 9.2 g/dL (11.5-15.3) L 04/24/22 12:44 Hct 28.3 % (37.0-47.0) L 04/24/22 12:44 MCV 112.1 fl (81-99) H 04/24/22 03:01 MCH 36.7 pg (28.0-34.0) H 04/24/22 03:01 MCHC 32.7 g/dL (30.0-36.0) 04/24/22 03:01 RDW 16.2 % (12.1-15.1) H 04/24/22 03:01 Plt Count 189 10^3/cmm (130-400) 04/25/22 05:20 MPV 12.1 fL (7.4-10.4) H 04/24/22 03:01 Neut % (Auto) 69.7 % 04/24/22 03:01 Lymph % (Auto) 18.3 % 04/24/22 03:01 [place] % (Auto) 5.8 % 04/24/22 03:01 Eos % (Auto) 5.0 % 04/24/22 03:01 Baso % (Auto) 0.6 % 04/24/22 03:01 Neut # (Auto) 3.34 10^3/uL (1.8-7.7) 04/24/22 03:01 Lymph # (Auto) 0.9 10^3/uL (0.8-4.8) 04/24/22 03:01 [place] # (Auto) 0.3 10^3/uL (0.2-0.9) 04/24/22 03:01 Eos # (Auto) 0.2 10^3/uL (0.0-0.8) 04/24/22 03:01 Baso # (Auto) 0.0 10^3/uL (0.0-0.1) 04/24/22 03:01 Nucleated RBC % (auto) 0 % 04/24/22 03:01 Nucleated RBCs # 0.0 /100WBC 04/24/22 03:01 APTT 41.1 SECONDS (23.9-36.7) H 04/23/22 04:43 D-Dimer 2.32 ug/mIFEU (0-0.59) H 04/19/22 15:10 Sodium 136 mmol/L (136-145) 04/25/22 05:20 Potassium 4.0 mmol/L (3.5-5.1) 04/25/22 05:20 Chloride 106 mmol/L (98-107) 04/25/22 05:20 Carbon Dioxide 21 mmol/L (22-29) L 04/25/22 05:20 Anion Gap 13.0 (5-19) 04/25/22 05:20 BUN 30 mg/dL (8-23) H 04/25/22 05:20 Creatinine 1.1 mg/dL (0.5-0.9) H 04/25/22 05:20 GFR Calculation Not Reportable 04/25/22 05:20 Glucose 111 mg/dL (65-115) 04/25/22 05:20 Calculated Osmolality 289 mOsm/kg (285-295) 04/25/22 05:20 Calcium 8.6 mg/dL (8.5-10.5) 04/25/22 05:20 Magnesium 1.9 mg/dL (1.7-2.3) 04/20/22 05:08 Total Bilirubin 1.5 mg/dL (0.15-1.2) H 04/19/22 15:10 AST 15 U/L (0-32) 04/19/22 15:10 ALT 11 U/L (0-33) 04/19/22 15:10 Alkaline Phosphatase 101 U/L (35-105) 04/19/22 15:10 Troponin T Baseline 47 ng/L (0-10) H 04/19/22 22:28 Troponin T 120 Minute 51.18 ng/L (0-10) H 04/20/22 01:07 Delta Troponin T 4.18 ABS# (0-10) 04/20/22 01:07 Troponin T Hi Sens 6Hr 48.87 ng/L (0-10) H 04/20/22 05:08 Troponin T Hi Sens 6Hr Delta 1.87 ng/L (0-12) 04/20/22 05:08 NT-Pro-B Natriuret Pep 5819 pg/mL (0-125) H 04/19/22 15:10 Total Protein 6.2 g/dL (6.6-8.7) L 04/19/22 15:10 Albumin 3.6 g/dL (3.5-5.2) 04/19/22 15:10 Globulin 2.6 g/dL (1.3-4.6) 04/19/22 15:10 TSH 1.89 uIU/mL (0.27-4.20) 04/19/22 15:10 Urine Color Yellow (Yellow) 04/23/22 04:00 Urine Appearance Clear (CLEAR) 04/23/22 04:00 Urine pH 5.5 (5-7) 04/23/22 04:00 Ur Specific [place] 1.015 (1.005-1.030) 04/23/22 04:00 Urine Protein Negative (Negative) 04/23/22 04:00 Urine Glucose (UA) Negative (Normal) 04/23/22 04:00 Urine Ketones Negative (Negative) 04/23/22 04:00 Urine Blood Negative (Negative) 04/23/22 04:00 Urine Nitrate Negative 04/23/22 04:00 Urine Bilirubin Negative (Negative) 04/23/22 04:00 Urine Urobilinogen 1.0 mg/dL (Negative) 04/23/22 04:00 Ur Leukocyte Esterase Trace 04/23/22 04:00 Urine RBC 0-4 /hpf (0-2) H 04/23/22 04:00 Urine WBC 15-25 /hpf (0-5) H 04/23/22 04:00 Ur Squamous Epith Cells 0-4 /hpf (0-5) H 04/23/22 04:00 Amorphous Sediment 1+ /hpf 04/23/22 04:00 Urine Bacteria 2+ /hpf (NONE) H 04/23/22 04:00 Hyaline Casts 0-4 /lpf H 04/23/22 04:00 Fine Granular Casts 0-4 /lpf H 04/23/22 04:00 Coronavirus 229E (PCR) Not detected (NOT DETECT) 04/21/22 09:30 Human Metapneumovir PCR Not detected (NOT DETECT) 04/21/22 12:30 Entero/Rhino (PCR) Detected (NOT DETECT) A 04/21/22 12:30 SARS-CoV-2 (PCR) Not detected (NOT DETECT) 04/21/22 09:30 SARS-CoV-2 Ag (Rapid) Negative (Negative) 04/19/22 15:10 Vitals Last Vital Signs Temp 98.1 F 04/25/22 05:15 Pulse 89 04/25/22 07:59 Resp 16 04/25/22 07:59 BP 135/66 04/25/22 07:38 Pulse Ox 92 04/25/22 07:59 O2 Del Method 04/25/22 07:59 O2 Flow Rate 3 04/24/22 20:00 Discharge Plan Discharge Patient Disposition: Home Condition: Stable Prescriptions: New pantoprazole 40 mg Tablet,Delayed Release (Dr/Ec) 40 mg PO DAILY Qty: 30 0RF furosemide [Lasix] 20 mg tablet 20 mg PO .every otherday Qty: 90 0RF hydralazine 25 mg Tablet 25 mg PO TID Qty: 180 1RF doxycycline monohydrate 100 mg Tablet 100 mg PO BID Qty: 10 0RF levofloxacin 750 mg Tablet 750 mg PO DAILY@0600 Qty: 5 0RF enoxaparin [Lovenox] 120 mg/0.8 mL syringe 120 mg SUBCUT BID Qty: 8 4RF potassium chloride 10 mEq tablet,ER particles/crystals 10 meq PO .every otherday Qty: 60 0RF Rx Instructions: Take potassium when you are taking Lasix every other day Continued atorvastatin 40 mg tablet 40 mg PO DAILY bupropion HCl [Wellbutrin] 100 mg Tablet 200 mg PO DAILY escitalopram oxalate 10 mg Tablet 20 mg PO DAILY alendronate 70 mg tablet 70 mg PO Q7D Rx Instructions: weekly on Fridays lorazepam [Ativan] 0.5 mg Tablet 0.5 mg PO Q6H PRN (Reason: Anxiety) Lynparza 150 mg Tablet 300 mg PO BID Zofran 8 mg Tablet 8 mg PO Q8H PRN (Reason: Nausea) gabapentin 300 mg Capsule 300 mg PO TID Claritin 10 mg Tablet 10 mg PO DAILY scopolamine base 1 mg over 3 days Patch 3 Day 1 patch TRANSDERMAL Q3D PRN (Reason: Nausea) Rx Instructions: After chemo acetaminophen 325 mg Tablet 325 mg PO Q4-5H PRN (Reason: Pain, Mild) vitamin E 400 unit Capsule 400 unit PO DAILY magnesium Tablet 0 tab PO DAILY Changed amlodipine 2.5 mg Tablet 10 mg PO DAILY Qty: 30 0RF Discontinued lisinopril 20 mg Tablet 20 mg PO DAILY ibuprofen 600 mg Tablet 600 mg PO Q6H PRN (Reason: Pain or Fever) Discharge Orders: Discharge Order (Routine); Ordered 04/25/22 Ordered By: Ericka Mann Referrals: Zahida Umanzor FNP [Primary Care Provider] - 04/30/22 8:30 am Jazmin Richey MD [Physician] - 1 month Alisa Nick FNP [Nurse Practitioner] - 2 weeks Discharge Diet: Cardiac Discharge Activity: Increase activity as tolerated Patient Instructions: Pacemaker (DC), Urinary Tract Infection in Women (DC), Opioid Safety, Post Pacemaker - [place] Patient's Health Concerns: You have diastolic congestive heart failure for weight gain more than 5 pounds take extra dose of Lasix to make it 40 mg otherwise keep taking 20 mg every other day Please take potassium 10 mEq when you are taking Lasix every other day For your blood pressure you will get amlodipine 10 mg, hydralazine 3 times a day regimen I have discontinued lisinopril because of chronic kidney disease Your creatinine at the time of discharge is 1.1 Your hemoglobin is 9.2 For your pulmonary embolism and DVT you will get injectable anticoagulating agent Lovenox which is twice a day 120 mg until this is changed by your oncologist to tablet forms such as Eliquis For UTI take 5 days of Levaquin For pacemaker wound you will get doxycycline Discharge Attestations Time Spent in Discharge Care*: less than 30 min Quality Metrics Clinical Quality Measures [ No reported AMI, CVA or VTE this stay] Coding Level of Care Code Acute Chg [facility] note Diagnoses Presence of permanent cardiac pacemaker Z95.0 Elevated troponin R77.8 Aortic regurgitation I35.1 Ovarian cancer C56.9 Pulmonary embolism on right I26.99 Venous thromboembolism I82.90 Acute diastolic heart failure I50.31 UTI (urinary tract infection) N39.0
--- NOTE | 2022-04-25 12:02 | PC.NURSE ---
dc'd pts piv and karmen cath access. discharge instructions discussed, pt voided post cath pulled. pt and daughter verbalized understanding with no further questions. left via wc to private vehicle. home medications sent with patient.
== END 2022-04-25 11:30 | disposition home or self-care (01) | DRG 242 ==
LOC: ER 17:48 → MEDSURG 17:54
PROVIDERS: Family Medicine; Internal Medicine Cardiovascular Disease; Admitting Provider Student in an Organized Health Care Education/Training Program; Emergency Provider Emergency Medicine; PCP Nurse Practitioner Family; Visit Provider Internal Medicine
PROC: 0JH606Z Insertion of Pacemaker, Dual Chamber into Chest Subcutaneous Tissue and Fascia, Open Approach (ICD-10-PCS; principal; 2022-04-23 12:00)
DX: I44.2 Atrioventricular block, complete (principal); I26.93 Single subsegmental thrombotic pulmonary embolism without acute cor pulmonale; I50.31 Acute diastolic (congestive) heart failure; I82.411 Acute embolism and thrombosis of right femoral vein; I82.451 Acute embolism and thrombosis of right peroneal vein; C56.9 Malignant neoplasm of unspecified ovary; I13.0 Hypertensive heart and chronic kidney disease with heart failure and stage 1 through stage 4 chronic kidney disease, or unspecified chronic kidney disease; N17.9 Acute kidney failure, unspecified; N39.0 Urinary tract infection, site not specified; Z90.710 Acquired absence of both cervix and uterus; Z90.722 Acquired absence of ovaries, bilateral; Z90.79 Acquired absence of other genital organ(s); Z79.899 Other long term (current) drug therapy; N18.2 Chronic kidney disease, stage 2 (mild); E78.5 Hyperlipidemia, unspecified; Z95.828 Presence of other vascular implants and grafts; I35.1 Nonrheumatic aortic (valve) insufficiency; D63.1 Anemia in chronic kidney disease; B96.20 Unspecified Escherichia coli [E. coli] as the cause of diseases classified elsewhere
CPT/HCPCS: 33208; 36415; 71045; 71275; 80048; 80053; 81001; 83735; 83880; 84443; 84484; 85014; 85018; 85025; 85049; 85378; 85730; 87070; 87077; 87086; 87186; 87205; 87426; 87635; 87801; 93005; 93306; 93970; 94640; 94664; 96360; 96361; 96372; 97161; 97165; 97530; 99152; 99153; 99285; C1769; C1779; C1786; C1894; C1898; G0378; J0690; J0696; J1644; J1650; J1940; J2250; J2270; J3010; J7030; J7050; Q9967

== ENCOUNTER → 2022-05-11 10:40 | Outpatient (BNVA) | payer MEDICARE, SELFPAY | PROVIDERS: PCP Nurse Practitioner Family; Visit Provider Nurse Practitioner Family | DX: Z95.0 Presence of cardiac pacemaker (principal) | CPT/HCPCS: 93280; 99213; 99214 ==

== ENCOUNTER 2022-06-12 10:44 | Emergency (ER) | payer MEDICARE, SELFPAY ==
[2022-06-12] VITALS (7 sets, daily range): BP systolic 139–156; BP diastolic 59–87; PULSE 86–97; RESP 14–21; TEMP 36.5–36.9; O2SAT 91–99; BMI 33.7
--- NOTE | 2022-06-12 10:49 | XR_ITS ---
WS: [id number] Exam: XR chest 1V portable [id number] Date/Time of Exam: 06/12/2022 10:49 AM Reason For Exam: dyspnea/cough Comparison 04/23/2022. The lungs are clear and fully expanded. Heart size is top limits normal. The mediastinum is normal in contour. No pleural effusions. A right-sided port is in place and may extend into the right atrium. Permanent cardiac pacer superimposes the left chest. Regional bony elements are intact. XR/XR chest 1V portable [id number] IMPRESSION: 1. No acute cardiopulmonary finding.
--- NOTE | 2022-06-12 10:53 | ECG_ITS ---
[facility] Test Date: 2022-06-12 Pat Name: Angelic Fuentes Department: Room: Gender: Female Clinical Services Specialist: : [id number] Requested By: Iftikhar Olivo Order Number: [id number] Crystal MD: Fazal Avila M.D. Measurements Intervals [place] Rate: 95 P: 104 MA: 206 QRS: 260 QRSD: 192 T: 83 QT: 421 QTc: 529 Interpretive Statements ELECTRONIC VENTRICULAR PACEMAKER Compared to ECG 04/24/2022 06:41:28 No significant changes Electronically Signed On 06-15-2022 18:27:08 DEMOLITION CRANE OPERATOR by Fazal Avila M.D. [id number]
[2022-06-12 11:19] LABS: Basophils % 1.2 %; Eosinophils % 0.4 %; Hematocrit 21.1 % (37.0-47.0); Lymphocytes # 0.4 10^3/uL (0.8-4.8); Lymphocytes % 14.6 %; Mean Corpuscular HGB Conc 33.2 g/dL (30.0-36.0); Mean Corpuscular Hemoglobin 38.9 pg (28.0-34.0); Mean Corpuscular Volume 117.2 fl (81-99); Monocytes # 0.3 10^3/uL (0.2-0.9); Monocytes % 11.4 %; Neutrophils # 1.83 10^3/uL (1.8-7.7); Nucleated Red Blood Cells % 0 %; Platelet Count 191 10^3/cmm (130-400); Red Cell Distribution Width 19.2 % (12.1-15.1); White Blood Count 2.5 10^3/uL (4.0-10.0)
--- NOTE | 2022-06-12 11:23 | W.ED.SOB ---
HPI - SOB/Dyspnea General: Chief Complaint: Shortness of Breath/Dyspnea Stated Complaint: SOB Time Seen by Provider: 06/12/22 10:47 Source: patient Mode of arrival: ambulatory History of Present Illness: HPI Narrative: This is 72-year-old female presents emergency room complaining of shortness of breath progressively worsening over the last 2 months particularly with exertion better with rest. No fever cough sweats chills no orthopnea. She is previously had an extensive right DVT and a PE and is currently on apixaban. Patient has intermittently had dark stools. Her hemoglobin over the last 3 weeks has decreasedFrom 9.2-7. She is awake and alert at this time her vital signs are stable. She is not tachycardic nor she hypotensive. Maintaining normal oxygen saturation on 3 L by nasal cannula denies any chest pain. She is chronically been short of breath over the last couple of months with any exertion requiring supplemental oxygen. Has been worsening over the last few weeks she denies chest pain. MD elicited complaint: shortness of breath and cough Pertinent past history: congestive heart failure Onset (ago): hour(s) Severity: mild Exacerbating factors: nothing Relieving factors: nothing Associated symptoms: Deny abdominal pain, chest congestion, chest pain, cough, diaphoresis, dizziness, extremity pain, fever(s), hemoptysis, lightheadedness, myalgias, nausea, orthopnea, palpitations, paresthesias, polydipsia, polyuria, rash, sense of impending doom, syncope or vomiting Treatment prior to arrival: oxygen Related Data: Home oxygen amount: none Review of Systems Const: Denies: fever(s), chills, fatigue, malaise or diaphoresis ENMT: Denies: throat pain, ear or mastoid pain, nasal discharge or nasal congestion Card: Reports: dyspnea on exertion; Denies: chest pain, palpitations, irregular heart rhythm, edema, lightheadedness, syncope or orthopnea Resp: Reports: dyspnea; Denies: productive cough, non-productive cough, hemoptysis or chest congestion GI: Denies: abdominal pain, nausea or vomiting : Denies: flank pain, difficulty voiding, dysuria, urinary frequency or urinary urgency Musc: Denies: extremity pain Skin/Breast: Denies: rash or pruritus Neuro: Denies: dizziness Endo: Denies: polyuria or polydipsia PFSH ED PFSH: Medical History Acute diastolic heart failure Aortic regurgitation AV heart block Chronic kidney disease Elevated troponin High cholesterol Hypertension NSTEMI (non-ST elevated myocardial infarction) Ovarian cancer Ovarian cancer Presence of permanent cardiac pacemaker Pulmonary embolism on right UTI (urinary tract infection) Venous thromboembolism Surgical History H/O abdominal hysterectomy Hx of cholecystectomy Family History Mother CAD (coronary artery disease) Father CAD (coronary artery disease) Social History Smoking and tobacco status: never smoked Alcohol intake: never Physical Exam Const: GENERAL APPEARANCE: cooperative and comfortable ORIENTATION/CONSCIOUSNESS: Yes awake, Yes oriented to person, Yes oriented to place and Yes oriented to time HENMT: COMMON NORMALS: normocephalic, atraumatic and hearing grossly normal bilaterally HEAD & SCALP: normocephalic and atraumatic Resp: COMMON NORMALS: normal respiratory effort, No retractions, No use of accessory muscles and clear to auscultation bilaterally AUSCULTATION: clear to auscultation bilaterally Cardio: COMMON NORMALS: regular rate, regular rhythm and No murmurs present (Cardio) RATE: regular rate RHYTHM: regular rhythm GI: COMMON NORMALS: Soft to palpation and No hepatosplenomegaly present AUSCULTATION: Yes normoactive bowel sounds PALPATION: Yes Soft to palpation, No Tenderness to palpation present (GI), No Guarding due to palpation present (GI) and Yes No hepatosplenomegaly present : COMMON NORMALS: Yes no CVA tenderness BLADDER/KIDNEY EXAM: Yes no CVA tenderness Back/Pelvis: COMMON NORMALS: no CVA tenderness Extremity: COMMON NORMALS: normal to inspection, capillary refill normal, no clubbing, cyanosis or edema, no calf tenderness and no pedal edema Neuro: SENSORIUM/ORIENTATION: Yes oriented to person, Yes oriented to place and Yes oriented to time Skin: COMMON NORMALS: no rashes or lesions noted GENERAL SKIN EXAM: no rashes or lesions noted Course Vital Signs: Vital signs: Vital Signs Temperature 98.4 F 06/12/22 15:43 Pulse Rate 88 06/12/22 19:26 Respiratory Rate 21 H 06/12/22 19:26 Blood Pressure 139/59 06/12/22 19:26 Pulse Oximetry 94 06/12/22 19:26 Oxygen Delivery Me thod 06/12/22 14:20 Oxygen Flow Rate 3 06/12/22 10:55 MDM - SOB/Dyspnea Medical Decision Making Or last couple weeks her hemoglobin is decreased from 9.2-7. Her vital signs are stable at this time she has no active bright red blood per rectum she is intermittently having some dark stools. Unfortunately did not have surgery available discussed with hospitalist patient will need transfusion. She may need endoscopy. After discussion decided to transfer patient. Medical Records I reviewed the patient's medical records. Lab Data I reviewed the patient's lab results. 06/12/22 11:00 06/12/22 11:00 Labs/Radiology: Radiology Impressions Chest X-Ray 06/12/22 10:49 IMPRESSION: 1. No acute cardiopulmonary finding. Laboratory Results WBC 2.5 10^3/uL (4.0-10.0) L 06/12/22 11:00 RBC 1.80 10^6/uL (4.1-5.3) L 06/12/22 11:00 Hgb 7.0 g/dL (11.5-15.3) L 06/12/22 11:00 Hct 21.1 % (37.0-47.0) L 06/12/22 11:00 MCV 117.2 fl (81-99) H 06/12/22 11:00 MCH 38.9 pg (28.0-34.0) H 06/12/22 11:00 MCHC 33.2 g/dL (30.0-36.0) 06/12/22 11:00 RDW 19.2 % (12.1-15.1) H 06/12/22 11:00 Plt Count 191 10^3/cmm (130-400) 06/12/22 11:00 MPV 12.0 fL (7.4-10.4) H 06/12/22 11:00 Neut % (Auto) 72.0 % 06/12/22 11:00 Lymph % (Auto) 14.6 % 06/12/22 11:00 [place] % (Auto) 11.4 % 06/12/22 11:00 Eos % (Auto) 0.4 % 06/12/22 11:00 Baso % (Auto) 1.2 % 06/12/22 11:00 Reticulocyte % (Auto) 1.1 % (0.5-2.0) 06/12/22 11:00 Neut # (Auto) 1.83 10^3/uL (1.8-7.7) 06/12/22 11:00 Lymph # (Auto) 0.4 10^3/uL (0.8-4.8) L 06/12/22 11:00 [place] # (Auto) 0.3 10^3/uL (0.2-0.9) 06/12/22 11:00 Eos # (Auto) 0.0 10^3/uL (0.0-0.8) 06/12/22 11:00 Baso # (Auto) 0.0 10^3/uL (0.0-0.1) 06/12/22 11:00 Nucleated RBC % (auto) 0 % 06/12/22 11:00 Nucleated RBCs # 0.0 /100WBC 06/12/22 11:00 PT 19.80 SECONDS (12.1-14.9) H 06/12/22 11:00 INR 1.65 (0.8-1.2) H 06/12/22 11:00 Specimen Type Arterial 06/12/22 11:25 Sample Site Radial, left 06/12/22 11:25 ABG pH 7.45 (7.35-7.45) 06/12/22 11:25 ABG pCO2 32.9 mmHg (35-45) L 06/12/22 11:25 ABG pO2 63.1 mmHg (80.0-100.0) L 06/12/22 11:25 ABG HCO3 22.9 mmol/L (22-26) 06/12/22 11:25 ABG O2 Saturation 93.2 06/12/22 11:25 ABG Base Excess -0.6 mmol/L (-2.0-2.0) 06/12/22 11:25 Aidan Test Pos 06/12/22 11:25 A-a O2 Gradient 6.2 mmHg (5-10) 06/12/22 11:25 Hematocrit 36.8 % (37-47) L 06/12/22 11:25 Hgb O2 Saturation 91.0 % (95-100) L 06/12/22 11:25 Carboxyhemoglobin 2.0 %THgb (0.4-20.1) 06/12/22 11:25 Methemoglobin 0.5 % (0.4-1.5) 06/12/22 11:25 Total Hemoglobin 12.0 g/dL (12-16) 06/12/22 11:25 Sodium 135.0 mmol/L (131-143) 06/12/22 11:25 Potassium 3.9 mmol/L (3.5-5.0) 06/12/22 11:25 Glucose 130.0 mg/dL (70-115) H 06/12/22 11:25 Ionized Calcium 1.1 mmol/L (1.1-1.4) 06/12/22 11:25 O2 Delivery Device Room air 06/12/22 11:25 FiO2 21.0 % 06/12/22 11:25 Hotel Administrative Assistant ID Cak 06/12/22 11:25 Sodium 137 mmol/L (136-145) 06/12/22 11:00 Potassium 4.3 mmol/L (3.5-5.1) 06/12/22 11:00 Chloride 104 mmol/L (98-107) 06/12/22 11:00 Carbon Dioxide 22 mmol/L (22-29) 06/12/22 11:00 Anion Gap 15.3 (5-19) 06/12/22 11:00 BUN 21 mg/dL (8-23) 06/12/22 11:00 Creatinine 0.8 mg/dL (0.5-0.9) 06/12/22 11:00 GFR Calculation Not Reportable 06/12/22 11:00 Glucose 128 mg/dL (65-115) H 06/12/22 11:00 Calculated Osmolality 289 mOsm/kg (285-295) 06/12/22 11:00 Lactate 0.9 mmol/L (0.5-2.2) 06/12/22 14:28 Calcium 8.4 mg/dL (8.5-10.5) L 06/12/22 11:00 Magnesium 2.0 mg/dL (1.7-2.3) 06/12/22 14:28 Iron 64 ug/dL (37-145) 06/12/22 11:00 TIBC 168 mcg/dl 06/12/22 11:00 % Saturation 38.0 % (20-50) 06/12/22 11:00 Unsat Iron Binding 104 ug/dL (112-347) L 06/12/22 11:00 Ferritin 371 ng/mL (15-150) H 06/12/22 11:00 Total Bilirubin 0.9 mg/dL (0.15-1.2) 06/12/22 11:00 AST 21 U/L (0-32) 06/12/22 11:00 ALT 14 U/L (0-33) 06/12/22 11:00 Alkaline Phosphatase 81 U/L (35-105) 06/12/22 11:00 Troponin T Baseline 27 ng/L (0-10) H 06/12/22 14:28 Troponin T 120 Minute 26.19 ng/L (0-10) H 06/12/22 17:19 Delta Troponin T -0.81 ABS# (0-10) L 06/12/22 17:19 NT-Pro-B Natriuret Pep 980 pg/mL (0-125) H 06/12/22 11:00 Total Protein 6.3 g/dL (6.6-8.7) L 06/12/22 11:00 Albumin 3.4 g/dL (3.5-5.2) L 06/12/22 11:00 Globulin 2.9 g/dL (1.3-4.6) 06/12/22 11:00 Vitamin B12 733 pg/mL (232-1245) 06/12/22 14:28 Folate 9.8 ng/mL (4.8-37.3) 06/12/22 14:28 TSH 1.92 uIU/mL (0.27-4.20) 06/12/22 14:28 TSH 2.41 uIU/mL (0.27-4.20) 06/12/22 14:28 Blood Type O Positive 06/12/22 11:48 Rho(D) Type Positive 06/12/22 11:48 Antibody Screen Negative 06/12/22 11:48 Crossmatch See Detail 06/12/22 11:48 Discharge Plan Discharge Patient Disposition: Transfer to ED Clinical Impression: Anemia, Pulmonary embolism on right, Venous thromboembolism, Chronic GI bleeding Condition: Stable Prescriptions: No Action Eliquis 5 mg tablet 5 mg PO BID@00,12 atorvastatin 40 mg tablet 40 mg PO DAILY@00 alendronate 70 mg tablet 70 mg PO Q7D Rx Instructions: weekly on Fridays at noon Lynparza 150 mg Tablet 300 mg PO BID@00,12 ondansetron HCl 8 mg Tablet 8 mg PO Q8H PRN (Reason: Nausea) loratadine [Claritin] 10 mg Tablet 10 mg PO DAILY@00 scopolamine base 1 mg over 3 days Patch 3 Day 1 patch TRANSDERMAL Q3D PRN (Reason: Nausea) Rx Instructions: After chemo acetaminophen 325 mg Tablet 325 mg PO Q6H PRN (Reason: Pain) vitamin E 400 unit Capsule 400 unit PO DAILY@12 magnesium 500 mg Tablet 500 mg PO DAILY@18 bupropion HCl 200 mg tablet sustained-release 12 hr 200 mg PO DAILY@18 escitalopram oxalate 20 mg tablet 20 mg PO DAILY@12 Mvasi 25 mg/mL Solution See Rx Instructions .ROUTE .COMPLEX Rx Instructions: every 3 weeks as directed Probiotic Blend 2 billion cell-50 mg Capsule 1 cap PO DAILY@00 Rx Instructions: give with meal/snack hydralazine 25 mg tablet 25 mg PO TID@00,12,18 amlodipine 2.5 mg tablet 2.5 mg PO DAILY@18 pantoprazole 40 mg tablet,delayed release (DR/EC) 40 mg PO DAILY@12 Lasix 20 mg tablet 20 mg PO EVERY OTHER DAY potassium chloride 10 mEq tablet,ER particles/crystals 10 meq PO EVERY OTHER DAY Rx Instructions: Take potassium when you are taking Lasix every other day Discharge Orders: Transfer Out of Facility (Order); Ordered 06/12/22 Ordered By: Gómez Pena Referrals: Zahida Umanzor FNP [Primary Care Provider] - Coding Level of Care Code ED Sheeter Waxer Operator for g Fwd Exam Comprehensive
[2022-06-12 11:36] LABS: ABG PCO2 32.9 mmHg (35-45); ABG PH Result 7.45 (7.35-7.45); Alveolar-Arterial Oxygen Gradi 6.2 mmHg (5-10); Arterial Blood Gas Hematocrit 36.8 % (37-47); Base Excess ABG -0.6 mmol/L (-2.0-2.0); Blood Gas Allen Test Pos; Blood Gas Operator Identificat CAK; Blood Gas Sample Site Radial, left; Blood Gas Sample Type Arterial; HCO3 ABG 22.9 mmol/L (22-26); Ionized Calcium Level - ABG 1.1 mmol/L (1.1-1.4); Methemoglobin 0.5 % (0.4-1.5); Oxygen Device ROOM AIR; Oxygen Saturation ABG 93.2; PO2 ABG 63.1 mmHg (80.0-100.0); Potassium Level - ABG 3.9 mmol/L (3.5-5.0)
--- NOTE | 2022-06-12 11:44 | PC.PHAR ---
pts daughter verified pts medication-pts daughter states the pt was suppose to get mvasi on 06/11/22 but missed it-pts daughter states this is the infusion the pt gets-rx filled 06/01/22 90d/s for amlodipine 2.5mg daily- rx written 04/25/22 10mg daily from pts family states pt taking 2.5mg daily-notes are made in the pharmacy comments
[2022-06-12 11:46] LABS: Alanine Aminotransferase 14 U/L (0-33); Albumin Level 3.4 g/dL (3.5-5.2); Alkaline Phosphatase 81 U/L (35-105); Aspartate Amino Transferase 21 U/L (0-32); Blood Urea Nitrogen 21 mg/dL (8-23); Calcium 8.4 mg/dL (8.5-10.5); Carbon Dioxide 22 mmol/L (22-29); Chloride 104 mmol/L (98-107); Globulin 2.9 g/dL (1.3-4.6); Glucose 128 mg/dL (65-115); NT Pro B Type Natriuretic Pept 980 pg/mL (0-125); Osmolality Calculated 289 mOsm/kg (285-295); Sodium 137 mmol/L (136-145); Total Bilirubin 0.9 mg/dL (0.15-1.2); Total Protein 6.3 g/dL (6.6-8.7)
[2022-06-12 11:54] LABS: Anion Gap 15.3 (5-19); Potassium 4.3 mmol/L (3.5-5.1)
--- NOTE | 2022-06-12 12:17 | PC.NURSE ---
Hemocult blood test positive per Dr Hutchinson
[2022-06-12 14:12] LABS: Reticulocyte % 1.1 % (0.5-2.0)
[2022-06-12 14:20] LABS: Ferritin 371 ng/mL (15-150); Iron 64 ug/dL (37-145); Total Iron Binding Capacity 168 mcg/dl; Unsaturated Iron Binding 104 ug/dL (112-347)
--- NOTE | 2022-06-12 14:23 | ECG_ITS ---
[facility] Test Date: 2022-06-12 Pat Name: Angelic Fuentes Department: Room: Gender: Female Junior Media Buyer: : 1950 Requested By: Gómez Pena Order Number: [id number] Crystal MD: Fazal Avila M.D. Measurements Intervals [place] Rate: 89 P: 47 FL: 220 QRS: 264 QRSD: 174 T: 86 QT: 416 QTc: 506 Interpretive Statements ELECTRONIC VENTRICULAR PACEMAKER Compared to ECG 06/12/2022 10:56:19 No significant changes Electronically Signed On 06-15-2022 18:26:41 LEAD SHAREPOINT DEVELOPER by Fazal Avila M.D. [email or web address] sunflower county hospitalQingdao Crystech Coatingmccullough-hyde memorial hospitalEcometrica/store/[id number]
[2022-06-12 14:29] LABS: INR 1.65 (0.8-1.2)
[2022-06-12 14:52] LABS: Troponin(5th) Baseline 27 ng/L (0-10)
[2022-06-12 14:53] LABS: Lactate (Lactic Acid level) 0.9 mmol/L (0.5-2.2)
[2022-06-12 15:16] LABS: Folate Level 9.8 ng/mL (4.8-37.3)
[2022-06-12 15:17] LABS: Thyroid Stimulating Hormone 2.41 uIU/mL (0.27-4.20); Vitamin B12 733 pg/mL (232-1245)
[2022-06-12 15:46] LABS: LAB Peripheral Smear Sent for Review
--- NOTE | 2022-06-12 15:47 | PM.HP ---
Providers/Chief Complaint Primary Care Provider: CINDI Dejesus Chief Complaint: SOB History of Present Illness Angelic Fuentes is a 72 year old female with an occlusive thrombus within the right superficial right small saphenous veins which extends into the peroneal trunk within the calf,, pulmonary embolism in the right lower lobe, no right heart strain, on Eliquis therapy, this was diagnosed roughly 2 months ago, ovarian cancer on Lynparza through oncologist in [facility], history of aortic regurg, history of diastolic CHF, history of permanent pacemaker placement for third-degree AV block, NSTEMI, who presents [facility] due to weakness, fatigue, black tarry stools, shortness of breath. Currently patient is alert oriented x3, normotensive, on room air, she tells me that she has been progressively increasingly weak, has generalized weakness, unable to walk due to her weakness. She also complains of shortness of breath on exertion, no shortness of breath at rest, no chest pain, palpitations, denies any dysuria, no abdominal pain, no diarrhea. She does have a history of UTI, but denies any urinary tract symptoms. She does report black tarry stools, which have become more frequent, and some lightheadedness, did get chemotherapy for her ovarian cancer, a week ago she is on Lynparza. -The discussion I had with the patient was in front of patient's family members -This is my concern -She has a hemoglobin of 7.0, with her black tarry stools this is concerning for a GI bleed -And I do not have any GI coverage here over the weekend to do an EGd -Now certainly her anemia could be multifactorial from chemotherapy, as her she has an elevated MCV, INR is 1.65, ferritin 371, B12 -However her complaints of black tarry stools with generalized weakness and hemoglobin 7 is highly suspicious -The issue is is that anticoagulation can cannot be stopped given the extensive blood clot she had in her leg and her lungs she has a high risk of embolization -What I would recommend will be a IVC filter placement followed by an EGD -I can certainly place an IVC filter here, and consult cardiology to do that however an EGD cannot be done here -And furthermore given her hemoglobin of 7 although she is hemodynamically stable if she starts to bleed further I do not have any surgery coverage to help I can certainly give her blood and medications to reverse the bleeding but this might be a difficult situation in which she might develop hemorrhagic shock besides medication and urgent transfer which would carry morbidity and mortality I would not have any other specialties to help me -What I would have recommended to the patient was more of a multifaceted team approach, patient needs patient registration manager, needs interventional radiology or cardiothoracic surgery to put an IVC filter followed by an EGD and close monitoring -Patient does not want at this time to go to [facility] or [facility] because it is too far from family -We can certainly try [facility] as that is where she wants to go, it is easier for family to come out and see her -However I would strongly recommend for her to be transferred however patient tells me that if she cannot go to [place] she is willing to take the risk of hemorrhagic shock, GI bleed, morbidity and mortality associated here without having appropriate coverage, she voiced no; all questions answered -I have called [facility], the are looking at the bed situation, Review of Systems Const: Denies: fever(s) Card: Denies: chest pain Resp: Reports: dyspnea GI: Reports: melena; Denies: abdominal pain, nausea or vomiting Medications/Allergies Home Medications Medication Instructions Recorded Confirmed Last Taken Type atorvastatin 40 mg tablet 40 mg PO DAILY@00 09/02/20 06/12/22 04/18/22 History alendronate 70 mg tablet 70 mg PO Q7D 12/02/20 06/12/22 06/05/22 History acetaminophen 325 mg tablet 325 mg PO Q6H PRN Pain 04/19/22 06/12/22 Unknown History loratadine 10 mg tablet (Claritin) 10 mg PO DAILY@00 04/19/22 06/12/22 04/18/22 History olaparib 150 mg tablet (Lynparza) 300 mg PO BID@00,12 04/19/22 06/12/22 04/18/22 History ondansetron HCl 8 mg tablet 8 mg PO Q8H PRN Nausea 04/19/22 06/12/22 Unknown History scopolamine base 1 mg over 3 days 1 patch transdermal Q3D PRN Nausea 04/19/22 06/12/22 06/11/22 History transdermal patch behind left ear vitamin E 268 mg (400 unit) capsule 400 unit PO DAILY@12 04/19/22 06/12/22 06/11/22 History apixaban 5 mg tablet (Eliquis) 5 mg PO BID@00,12 05/11/22 06/12/22 Unknown History L.acidophil-L.casei-B.bifid-B.longum-FOS 1 cap PO DAILY@00 06/12/22 06/12/22 Unknown History 2 billion cell-50 mg capsule (Probiotic Blend) amlodipine 2.5 mg tablet 2.5 mg PO DAILY@18 06/12/22 06/12/22 06/11/22 History bevacizumab-awwb 25 mg/mL See Rx Instructions .Route .COMPLEX 06/12/22 06/12/22 Unknown History intravenous solution (Mvasi) bupropion HCl 200 mg tablet,12 hr 200 mg PO DAILY@18 06/12/22 06/12/22 06/11/22 History sustained-release escitalopram oxalate 20 mg tablet 20 mg PO DAILY@12 06/12/22 06/12/22 06/11/22 History furosemide 20 mg tablet (Lasix) 20 mg PO EVERY OTHER DAY 06/12/22 06/12/22 06/10/22 History hydralazine 25 mg tablet 25 mg PO TID@00,12,18 06/12/22 06/12/22 Unknown History magnesium 500 mg tablet 500 mg PO DAILY@18 06/12/22 06/12/22 06/11/22 History pantoprazole 40 mg tablet,delayed 40 mg PO DAILY@12 06/12/22 06/12/22 06/11/22 History release potassium chloride 10 mEq 10 meq PO EVERY OTHER DAY 06/12/22 06/12/22 06/10/22 History tablet,extended release(part/cryst) Allergies Allergy/AdvReac Type Severity Reaction Status Date / Time No Known Allergies Allergy Verified 06/12/22 11:28 PFSH Acute PFSH: Medical History (Updated 06/12/22 @ 16:23 by Gómez Pena MD) Acute diastolic heart failure Aortic regurgitation AV heart block Chronic kidney disease Elevated troponin High cholesterol Hypertension NSTEMI (non-ST elevated myocardial infarction) Ovarian cancer Ovarian cancer Presence of permanent cardiac pacemaker Pulmonary embolism on right UTI (urinary tract infection) Venous thromboembolism Surgical History H/O abdominal hysterectomy Hx of cholecystectomy Family History Mother CAD (coronary artery disease) Father CAD (coronary artery disease) Social History Smoking and tobacco status: never smoked Alcohol intake: never Vitals/I&O/Wt Last Vital Signs Temp 98.4 F 06/12/22 15:43 Pulse 86 06/12/22 15:43 Resp 14 06/12/22 15:43 BP 147/67 06/12/22 15:43 Pulse Ox 93 06/12/22 15:43 O2 Del Method 06/12/22 14:20 O2 Flow Rate 3 06/12/22 10:55 06/12/22 06/12/22 06/12/22 06:59 14:59 22:59 Intake Total 0 / 0 Balance 0 / 0 Weight last 48 hrs Weight 103.873 kg Physical Exam Const: COMMON NORMALS: no acute distress and patient oriented x3 Eye: COMMON NORMALS: Equal, round and reactive pupils present and EOMs intact bilaterally Resp: COMMON NORMALS: normal respiratory effort, No retractions, No use of accessory muscles and clear to auscultation bilaterally AUSCULTATION: clear to auscultation bilaterally Cardio: COMMON NORMALS: regular rate, regular rhythm, S1 normal heart sound present and S2 normal heart sound present RATE: regular rate RHYTHM: regular rhythm HEART SOUNDS: S1 normal heart sound present and S2 normal heart sound present GI: COMMON NORMALS: Normal to inspection, nondistended, normoactive bowel sounds present, Soft to palpation and non-tender Extremity: COMMON NORMALS: no pedal edema Neuro: COMMON NORMALS: patient oriented x3 Psych: COMMON NORMALS: mental status grossly normal Data 06/12/22 11:00 06/12/22 11:00 A&P Assessment and plan (1) GI bleed: (2) Acute diastolic heart failure: (3) Venous thromboembolism: (4) Pulmonary embolism on right: (5) Presence of permanent cardiac pacemaker: (6) NSTEMI (non-ST elevated myocardial infarction): Plan Slow GI bleed -We will transfuse 1 unit PRBC here in the hospital -She does have complaints of shortness of breath no wheezing on exam not requiring oxygen, elevated BNP likely diastolic CHF we will give 1 dose of Lasix -Monitor hemoglobin thereafter -Protonix, Carafate -Will need an EGD and or colonoscopy -Full code -SCDs for DVT prophylaxis DVT and pulmonary embolism in March -Cannot tolerate anticoagulation due to anemia -Will need IVC filter placed -However she does have an occlusive thrombus on the right, and she has a high risk of post thrombotic thrombophlebitis, severe pain, as she has underlying malignancy, cannot be anticoagulated -Discussed risks and benefits she voiced standing, all questions are agreed to proceed Weakness, fatigue likely secondary to acute on chronic anemia hemoglobin 7 -Likely slow GI bleed but also multifactorial from chemotherapy -History of UTIs, obtain a UA -History of ovarian cancer on Mvasi and Lynparza Hypertension hold blood pressure medications due to concerns for anemia and GI bleed Attestations Medical Necessity Statement*: Patient hopefully will be transferred due to GI bleed, need for EGD, need for gastroenterology, or general surgery Coding Level of Care Code Acute Feed Handler for [facility] Fwd Exam Detailed Diagnoses GI bleed K92.2 Acute diastolic heart failure I50.31 Venous thromboembolism I82.90 Pulmonary embolism on right I26.99 Presence of permanent cardiac pacemaker Z95.0 NSTEMI (non-ST elevated myocardial infarction) I21.4
--- NOTE | 2022-06-12 16:09 | ECG_ITS ---
[facility] Test Date: 2022-06-12 Pat Name: Angelic Fuentes Department: Room: Gender: Female Reel Operator: : 1950 Requested By: Gómez Pena Order Number: [id number] Crystal MD: Fazal Avila M.D. Measurements Intervals [place] Rate: 84 P: 10 CO: 176 QRS: 265 QRSD: 194 T: 87 QT: 453 QTc: 537 Interpretive Statements ELECTRONIC VENTRICULAR PACEMAKER Compared to ECG 06/12/2022 14:23:28 No significant changes Electronically Signed On 06-15-2022 18:34:24 INSERT CUTTER by Fazal Avila M.D. [id number]
[2022-06-12 17:28] LABS: Thyroid Stimulating Hormone 1.92 uIU/mL (0.27-4.20)
[2022-06-12 17:56] LABS: Troponin 5 2HR 26.19 ng/L (0-10)
[2022-06-12 18:08] LABS: Troponin 5 2HR Delta -0.81 ABS# (0-10)
[2022-06-12] MEDS: sucralfate 1 gm Tablet PO (18:23)
[2022-06-12] MEDS: pantoprazole 40 mg SDV IVP (18:23)
== END 2022-06-12 20:28 ==
PROVIDERS: Family Medicine; Emergency Provider Family Medicine; PCP Nurse Practitioner Family
DX: D64.9 Anemia, unspecified (principal); I26.99 Other pulmonary embolism without acute cor pulmonale; K92.2 Gastrointestinal hemorrhage, unspecified; I21.4 Non-ST elevation (NSTEMI) myocardial infarction; I50.31 Acute diastolic (congestive) heart failure; I82.90 Acute embolism and thrombosis of unspecified vein; Z95.0 Presence of cardiac pacemaker
CPT/HCPCS: 36415; 36430; 36600; 71045; 80051; 80053; 80503; 82330; 82607; 82728; 82746; 82805; 83540; 83550; 83605; 83735; 83880; 84443; 84484; 85025; 85045; 85610; 86850; 86900; 86920; 93005; 96374; 99285; C9113; P9016

== ENCOUNTER → 2022-09-11 09:46 | Outpatient (BNVA) | payer MEDICARE, SELFPAY | PROVIDERS: PCP Nurse Practitioner Family; Visit Provider Internal Medicine Cardiovascular Disease | DX: I82.90 Acute embolism and thrombosis of unspecified vein (principal); I26.99 Other pulmonary embolism without acute cor pulmonale; I13.0 Hypertensive heart and chronic kidney disease with heart failure and stage 1 through stage 4 chronic kidney disease, or unspecified chronic kidney disease; N18.9 Chronic kidney disease, unspecified; I50.31 Acute diastolic (congestive) heart failure; Z95.0 Presence of cardiac pacemaker; Z95.828 Presence of other vascular implants and grafts; I35.1 Nonrheumatic aortic (valve) insufficiency; I44.30 Unspecified atrioventricular block; E78.00 Pure hypercholesterolemia, unspecified; C56.9 Malignant neoplasm of unspecified ovary | CPT/HCPCS: 99215 ==

== ENCOUNTER → 2023-01-28 12:07 | Outpatient (BNVA) | payer MEDICARE, SELFPAY | PROVIDERS: PCP Nurse Practitioner Family; Visit Provider Internal Medicine Cardiovascular Disease | DX: C56.9 Malignant neoplasm of unspecified ovary (principal); I13.0 Hypertensive heart and chronic kidney disease with heart failure and stage 1 through stage 4 chronic kidney disease, or unspecified chronic kidney disease; N18.9 Chronic kidney disease, unspecified; I50.31 Acute diastolic (congestive) heart failure; E78.00 Pure hypercholesterolemia, unspecified; I44.30 Unspecified atrioventricular block; Z95.828 Presence of other vascular implants and grafts; I35.1 Nonrheumatic aortic (valve) insufficiency; I26.99 Other pulmonary embolism without acute cor pulmonale; Z95.0 Presence of cardiac pacemaker; I25.2 Old myocardial infarction; I21.4 Non-ST elevation (NSTEMI) myocardial infarction | CPT/HCPCS: 99213 ==